=== PATIENT | male | born 1960 | race Caucasian/White ===

== ENCOUNTER 2016-06-06 07:44 | Emergency (ER) | payer OTHER ==
[2016-06-06 08:38] LABS: MEAN CORPUSCULAR HEMOGLOBIN 27.7 pg (27.0-33.0); MEAN CORPUSCULAR HGB CONC 31.9 g/dl (32.0-36.5); RED CELL DISTRIBUTION WIDTH 14.6 % (11.5-14.5); WHITE BLOOD COUNT 9.7 K/mm3 (4.0-10.0)
--- NOTE | 2016-06-06 08:40 | REP ---
CT BRAIN WITHOUT CONTRAST: 06/06/2016. Comparison: 04/21/2016. Clinical history: Possible trauma. Findings. Noncontrast soft tissue and bone windows are reviewed. Ventricles are midline and symmetrical and their size proportionate to the mild diffuse cerebral atrophy. This atrophy is greater than I would expect for his age. Appearance is unchanged from the previous study. Fairly prominent subarachnoid space over the frontal convexities. Atrophy is greatest in the temporal and frontal lobes. Basal ganglia were symmetric. Cortical stripe shows no evidence of an acute infarct, mass or extra-axial mass. No abnormal fluid collection. There is cerebellar atrophy. The brainstem is without focal lesion. The cerebellar atrophy is more severe than the cerebral atrophy. Yaron cisterna magna noted. There are calcifications in the carotid siphons bilaterally. Mastoids sinuses, skull base and calvarium grossly intact. Impression: 1. Cerebral and cerebellar atrophy greater than expected for age. Appearance unchanged from the previous study. 2. No intracranial hemorrhage, acute infarct, edema or mass/mass effect. 3. Sinuses, mastoids, skull base and calvarium grossly intact. Calcified carotid siphons noted. Signed by Geoff Vazquez MD 06/06/2016 04:56 P
[2016-06-06 09:36] LABS: ALBUMIN 3.7 GM/DL (3.2-5.2); ALBUMIN/GLOBULIN RATIO 0.97 (1.00-1.93); ALKALINE PHOSPHATASE 82 U/L (45-117); ALT/SGPT 30 U/L (12-78); ANION GAP 12 MEQ/L (8-16); AST/SGOT 39 U/L (15-37); BILIRUBIN,DIRECT 0.1 MG/DL (0.0-0.2); BILIRUBIN,TOTAL 0.4 MG/DL (0.2-1.0); BLOOD UREA NITROGEN 8 MG/DL (7-18); CALCIUM LEVEL 8.1 MG/DL (8.5-10.1); CARBON DIOXIDE LEVEL 23 MEQ/L (21-32); CHLORIDE LEVEL 111 MEQ/L (98-107); CREATININE FOR GFR 1.01 MG/DL (0.70-1.30); GLOMERULAR FILTRATION RATE > 60.0 (>56); GLUCOSE, FASTING 129 MG/DL (70-105); POTASSIUM SERUM 4.3 MEQ/L (3.5-5.1); SODIUM LEVEL 146 MEQ/L (136-145); TOTAL PROTEIN 7.5 GM/DL (6.4-8.2)
--- NOTE | 2016-06-06 11:11 | EDDOCDS ---
Nurse's Notes [facility] Name: Cliff Forman Age: 56 yrs Sex: Male : 1960 Arrival Date: 06/06/2016 Time: 07:44 Bed 12 Private MD: Diagnosis: Alcohol abuse, uncomplicated Presentation: 06/06 07:46 Presenting complaint: EMS states: found [place] this [place]. Reports had been kr3 drinking since 6PM last night. was found 1 block from his home. No complaints from patient. Mental Health Triage Level: Level 1- Pt displays no suicidal or homicidal ideations and does not appear to be a danger to self or others. Adult Sepsis Screening: The patient does not have new or worsening altered mentation. Patient's respiratory rate is less than 22. Systolic blood pressure is greater than 100. Patient has a qSOFA score of 0- Negative Sepsis Screen. Suicide/Homicide risk assessment- the patient denies having any suicidal and/or homicidal ideations and does not present with any other emotional, behavioral or mental health complaints. 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 Transition of care: patient was not received from another setting of care. 07:46 Acuity: TANA Level 4 kr3 07:46 Method Of Arrival: Ambulance kr3 07:59 Acuity level changed due to complexity of care. kr3 07:59 Acuity: TANA Level 3 kr3 Triage Assessment: 07:55 General: Appears comfortable, Behavior is cooperative, drowsy. Pain: Denies pain. The kr3 patient is triaged at the bedside. See Assessment in Nurses Notes section of ED record. Neurological: Level of Consciousness is awake, Oriented to person, place, reports does not pay attention to time. Respiratory: Respiratory effort is even, unlabored. Derm: Skin is normal, Skin temperature is cool. Injury Description: Abrasion sustained to anterior aspect of right lateral abdomen Bruise sustained to right and left knee right ankle swollen with medial ankle red and peeling skin. 11:03 HIV screening NA for this visit Offered previously. kr3 Historical: - Allergies: no known allergies; - Home Meds: 1. none - PMHx: none; - PSHx: none; - Social history: Patient uses alcohol on a daily basis. Smoking status: Patient uses tobacco products, current every day smoker. No barriers to communication noted, The patient speaks fluent Belarusian. - Family history: Not pertinent. - : The pt / caregiver states he / she is not on anticoagulants. Home medication list is obtained from. - Exposure Risk Screening:: None identified. - Tetanus status: unknown. Screenin:23 Screening information is obtained from the patient. Fall risk: No risks identified. kr3 Assistance ADL's: requires no assistance with activities of daily living. Abuse/DV Screen: The patient / caregiver reports he/she is: not in a situation that causes fear, pain or injury. Nutritional screening: No deficits noted. Advance Directives: Currently, there is no health care proxy. home support is adequate. Assessment: 08:23 Reassessment: Patient appears in no apparent distress at this time. General: Behavior kr3 is cooperative. Pain: Denies pain. Neurological: aroused with stimuli. 09:37 Reassessment: Patient appears in no apparent distress at this time. sleeping. kr3 Respiratory: Respiratory effort is even, unlabored. Derm: Skin is pink, warm & dry. 10:14 Reassessment: Patient appears in no apparent distress at this time. sitting up on kr3 stretcher having a meal. 10:28 Reassessment: patient removed IV and was dripping IV fluid into cereal bowl. Reports kr3 did not need it any more and is ready to go home. 11:01 Reassessment: ambulated in hallway with no problems. patient spoke with SAMARA Orta. . kr3 Neurological: No deficits noted. Respiratory: Respiratory effort is even, unlabored. Derm: Skin is pink, warm & dry. Social Work Consult: 11:07 Social Work Note: Met pt at bedside regarding ETOH abuse. Pt admits being an alcoholic ml4 for many years and is wanting rehab or outpt services. Pt denies SI and HI, able to CFS. Referrals for outpt service was given at bedside and directed to follow up with [facility] for intake. Vital Signs: 07:56 BP 155 / 80 RA Sitting (auto/reg); Pulse 109; Resp 18; Temp 96.5(O); Pulse Ox 98% on jrd R/A; Weight 81.65 kg (R); Height 5 ft. 8 in. (172.72 cm) (R); Pain 0/10; 11:02 BP 170 / 95; Pulse 120; Resp 16; Temp 97.6(O); Pulse Ox 97% on R/A; kr3 07:56 Body Mass Index 27.37 (81.65 kg, 172.72 cm) jrd Vitals: 07:54 Log In Time N/A - ambulance arrival. kr3 ED Course: 07:45 Patient visited by Nancy Turner Payment Processor. deg 07:45 Beba Rutherford RN is Primary Nurse. deg 07:45 Samara Murphy RN is Primary Nurse. deg 07:45 Patient moved to Waiting deg 07:45 Patient moved to 12 deg 07:46 Medina Salvador MD is Attending Physician. sd1 07:47 Triage Initiated kr3 07:50 Patient visited by Medina Salvador MD. sd1 07:57 Patient visited by Douglas Sebastian PCA. jrd 08:23 Inserted saline lock: 22 gauge in right hand and blood collected. The patient tolerated kr3 the procedure well. No procedures done that require assistance. 08:24 Primary Nurse role handed off by Beba Rutherford RN kr3 08:24 The patient / caregiver is instructed regarding the plan of care and ED course. Patient kr3 has correct armband on for positive identification. Placed in gown. Bed in low position. Call light in reach. Side rails up X2. Warm blanket given. 08:25 Liver Profile Sent. kr3 08:25 CBC Sent. kr3 08:25 MED Profile Sent. kr3 08:33 Patient visited by Samara Murphy RN. kr3 08:53 CT Head Without Contrast Returned. EDMS 09:36 Patient visited by Samara Murphy RN. kr3 10:14 Patient visited by Samara Murphy RN. kr3 10:40 EKG done. (by ED staff). Reviewed by Medina Salvador MD. jrd 10:40 Patient was ambulated per physician's order. Patient was able to walk without jrd assistance or any gait disturbance. 10:41 Patient visited by Douglas Sebastian PCA. jrd 10:48 Referral list, As provided by [facility] is Referral Physician. sd1 10:48 [facility] is Referral Physician. sd1 11:02 Discontinued intact, bleeding controlled, No redness/swelling at site. kr3 11:08 PSA Outpatient Referrals was scanned into [employer] and attached to record. ml4 Administered Medications: Discontinued: NS 0.9% 1000 ml IV at 250 mL/hr continuous 08:33 Drug: NS 0.9% 1000 ml [sodium chloride 0.9 % intravenous solution] Route: IV; Rate: 250 kr3 mL/hr; Site: right hand; Intake: 10:29 IV: 500.00ml (NS); Total: 500.00ml. kr3 Order Results: Lab Order: MED Profile; SPEC'M 06/06/16 08:58 Test: GLUCOSE, FASTING; Value: 129; Range: 70-105; Abnormal: Above high normal; Units: MG/DL; Status: F Test: BLOOD UREA NITROGEN; Value: 8; Range: 7-18; Units: MG/DL; Status: F Test: CREATININE FOR GFR; Value: 1.01; Range: 0.70-1.30; Units: MG/DL; Status: F Test: GLOMERULAR FILTRATION RATE; Value: > 60.0; Range: >56; Status: F Test: SODIUM LEVEL; Value: 146; Range: 136-145; Abnormal: Above high normal; Units: MEQ/L; Status: F Test: POTASSIUM SERUM; Value: 4.3; Range: 3.5-5.1; Units: MEQ/L; Status: F Test: CHLORIDE LEVEL; Value: 111; Range: 98-107; Abnormal: Above high normal; Units: MEQ/L; Status: F Test: CARBON DIOXIDE LEVEL; Value: 23; Range: 21-32; Units: MEQ/L; Status: F Test: ANION GAP; Value: 12; Range: 8-16; Units: MEQ/L; Status: F Test: CALCIUM LEVEL; Value: 8.1; Range: 8.5-10.1; Abnormal: Below low normal; Units: MG/DL; Status: F Test Note: ; Units are mL/min/1.73 m2 Chronic Kidney Disease Staging per NKF: Stage I & II GFR >=60 Normal to Mildly Decreased Stage III GFR 30-59 Moderately Decreased Stage IV GFR 15-29 Severely Decreased Stage V GFR <15 Very Little GFR Left ESRD GFR <15 on MACHINE SILK SCREEN PRINTER Lab Order: CBC; SPEC'M 06/06/16 08:15 Test: WHITE BLOOD COUNT; Value: 9.7; Range: 4.0-10.0; Units: K/mm3; Status: F Test: RED BLOOD COUNT; Value: 4.50; Range: 4.30-6.10; Units: M/mm3; Status: F Test: HEMOGLOBIN; Value: 12.5; Range: 14.0-18.0; Abnormal: Below low normal; Units: g/dl; Status: F Test: HEMATOCRIT; Value: 39.1; Range: 42.0-52.0; Abnormal: Below low normal; Units: %; Status: F Test: MEAN CORPUSCULAR VOLUME; Value: 87.0; Range: 80.0-96.0; Units: fl; Status: F Test: MEAN CORPUSCULAR HEMOGLOBIN; Value: 27.7; Range: 27.0-33.0; Units: pg; Status: F Test: MEAN CORPUSCULAR HGB CONC; Value: 31.9; Range: 32.0-36.5; Abnormal: Below low normal; Units: g/dl; Status: F Test: RED CELL DISTRIBUTION WIDTH; Value: 14.6; Range: 11.5-14.5; Abnormal: Above high normal; Units: %; Status: F Test: PLATELET COUNT, AUTOMATED; Value: 321; Range: 150-450; Units: k/mm3; Status: F Lab Order: Liver Profile; [facility] 06/06/16 08:58 Test: AST/SGOT; Value: 39; Range: 15-37; Abnormal: Above high normal; Units: U/L; Status: F Test: ALT/SGPT; Value: 30; Range: 12-78; Units: U/L; Status: F Test: ALKALINE PHOSPHATASE; Value: 82; Range: 45-117; Units: U/L; Status: F Test: BILIRUBIN,TOTAL; Value: 0.4; Range: 0.2-1.0; Units: MG/DL; Status: F Test: BILIRUBIN,DIRECT; Value: 0.1; Range: 0.0-0.2; Units: MG/DL; Status: F Test: TOTAL PROTEIN; Value: 7.5; Range: 6.4-8.2; Units: GM/DL; Status: F Test: ALBUMIN; Value: 3.7; Range: 3.2-5.2; Units: GM/DL; Status: F Test: ALBUMIN/GLOBULIN RATIO; Value: 0.97; Range: 1.00-1.93; Abnormal: Below low normal; Status: F Radiology Order: CT Head Without Contrast Test: CT Head Without Contrast REASON FOR EXAMINATION: possible trauma; CT BRAIN WITHOUT CONTRAST: 06/06/2016.; ; Comparison: 04/21/2016.; ; Clinical history: Possible trauma.; ; Findings. Noncontrast soft tissue and bone windows are reviewed. Ventricles are; midline and symmetrical and their size proportionate to the mild diffuse cerebral; atrophy. This atrophy is greater than I would expect for his age. Appearance is; unchanged from the previous study. Fairly prominent subarachnoid space over the; frontal convexities. Atrophy is greatest in the temporal and frontal lobes.; Basal ganglia were symmetric. Cortical stripe shows no evidence of an acute; infarct, mass or extra-axial mass. No abnormal fluid collection. There is; cerebellar atrophy. The brainstem is without focal lesion. The cerebellar; atrophy is more severe than the cerebral atrophy. Yaron cisterna magna noted.; There are calcifications in the carotid siphons bilaterally. Mastoids sinuses,; skull base and calvarium grossly intact.; ; Impression:; 1. Cerebral and cerebellar atrophy greater than expected for age. Appearance; unchanged from the previous study.; 2. No intracranial hemorrhage, acute infarct, edema or mass/mass effect.; 3. Sinuses, mastoids, skull base and calvarium grossly intact. Calcified; carotid siphons noted.; ; ; ; ; Unreviewed; Outcome: 08:24 CT Study completed. kr3 10:48 Discharge ordered by Provider. sd1 11:02 Discharge Assessment: patient administered narcotics - no. The following High Risk kr3 Discharge criteria are identified: Yes, spoke with [facility]. Discharged to home ambulatory, via cab. Condition: improved. Discharge instructions given to patient, Instructed on discharge instructions, follow up and referral plans. Demonstrated understanding of instructions, Pt was receptive of discharge instructions/ teaching. Property sent home with patient. 11:10 Patient left the ED. kr3 Signatures: Dispatcher [employer] EDMS Medina Salvador MD MD sd1 Nancy Turner, Payment Processor Unit deg Samara Murphy RN RN kr3 Marivel Ramirez, PSA PSA ml4 Douglas Sebastian, MEDICATION NURSE MEDICATION NURSE jrd RAJESHD
--- NOTE | 2016-06-06 11:11 | EDDOCDS ---
Physician Documentation [facility] Name: Cliff Forman Age: 56 yrs Sex: Male : 1960 Arrival Date: 06/06/2016 Time: 07:44 Bed 12 Private MD: Disposition: 06/06/16 10:48 Discharged to Home/Self Care. Impression: Alcohol abuse, uncomplicated. - Condition is Stable. - Discharge Instructions: Alcohol Use Disorder, Alcohol Abuse and Nutrition, How Much is Too Much Alcohol, [id number]. - Medication Reconciliation, Local Pharmacy Hours form. - Follow up: Referral list, As provided by [facility]; When: Call to arrange an appointment. [facility]; When: Call to arrange an appointment. - Problem is chronic. - Symptoms have improved. Historical: - Allergies: no known allergies; - Home Meds: 1. none - PMHx: none; - PSHx: none; - Social history: Patient uses alcohol on a daily basis. Smoking status: Patient uses tobacco products, current every day smoker. No barriers to communication noted, The patient speaks fluent Congolese. - Family history: Not pertinent. - : The pt / caregiver states he / she is not on anticoagulants. Home medication list is obtained from. - Exposure Risk Screening:: None identified. - Tetanus status: unknown. Vital Signs: 06/06 07:56 BP 155 / 80 RA Sitting (auto/reg); Pulse 109; Resp 18; Temp 96.5(O); Pulse Ox 98% on jrd R/A; Weight 81.65 kg / 180.01 lbs (R); Height 5 ft. 8 in. (172.72 cm) (R); Pain 0/10; 11:02 BP 170 / 95; Pulse 120; Resp 16; Temp 97.6(O); Pulse Ox 97% on R/A; kr3 07:56 Body Mass Index 27.37 (81.65 kg, 172.72 cm) jrd MDM: 07:54 NS 0.9% 1000 ml IV at 250 mL/hr continuous ordered. sd1 07:55 IV Saline Lock ordered. sd1 07:55 MED Profile Ordered. EDMS 07:55 CBC Ordered. EDMS 07:55 Liver Profile Ordered. EDMS 07:56 CT Head Without Contrast Ordered. EDMS 08:00 Consult: Clerk Specialist ordered. sd1 08:45 Consult: Clerk Specialist complete. ca 09:39 MED Profile Reviewed. sd1 09:39 CBC Reviewed. sd1 09:39 Liver Profile Reviewed. sd1 09:39 CT Head Without Contrast Reviewed. sd1 09:41 REGULAR+DIET ordered. EDMS 10:27 Misc. Nursing Order ordered. sd1 11:08 [facility] Outpatient Referrals was scanned into [employer] and attached to record. ml4 Administered Medications: Discontinued: NS 0.9% 1000 ml IV at 250 mL/hr continuous 08:33 Drug: NS 0.9% 1000 ml [sodium chloride 0.9 % intravenous solution] Route: IV; Rate: 250 kr3 mL/hr; Site: right hand; Signatures: Dispatcher [employer] EDVT Medina Salvador MD MD sd1 Kandis Musa, PSA PSA ca Samara Murphy,ROSA RN kr3 Marivel Ramirez, PSA PSA ml4 MTDD
--- NOTE | 2016-06-08 12:11 | EDDOCDS ---
Nurse's Notes [facility] Name: Cliff Forman Age: 56 yrs Sex: Male : 1960 Arrival Date: 06/06/2016 Time: 07:44 Bed 12 Private MD: Diagnosis: Alcohol abuse, uncomplicated Presentation: 06/06 07:46 Presenting complaint: EMS states: [place] this [place]. Reports had been kr3 drinking since 6PM last night. was found 1 block from his home. No complaints from patient. Mental Health Triage Level: Level 1- Pt displays no suicidal or homicidal ideations and does not appear to be a danger to self or others. Adult Sepsis Screening: The patient does not have new or worsening altered mentation. Patient's respiratory rate is less than 22. Systolic blood pressure is greater than 100. Patient has a qSOFA score of 0- Negative Sepsis Screen. Suicide/Homicide risk assessment- the patient denies having any suicidal and/or homicidal ideations and does not present with any other emotional, behavioral or mental health complaints. Status: Patient is not a representative personal service or dependent. Transition of care: patient was not received from another setting of care. 07:46 Acuity: TANA Level 4 kr3 07:46 Method Of Arrival: Ambulance kr3 07:59 Acuity level changed due to complexity of care. kr3 07:59 Acuity: TANA Level 3 kr3 Triage Assessment: 07:55 General: Appears comfortable, Behavior is cooperative, drowsy. Pain: Denies pain. The kr3 patient is triaged at the bedside. See Assessment in Nurses Notes section of ED record. Neurological: Level of Consciousness is awake, Oriented to person, place, reports does not pay attention to time. Respiratory: Respiratory effort is even, unlabored. Derm: Skin is normal, Skin temperature is cool. Injury Description: Abrasion sustained to anterior aspect of right lateral abdomen Bruise sustained to right and left knee right ankle swollen with medial ankle red and peeling skin. 11:03 HIV screening NA for this visit Offered previously. kr3 Historical: - Allergies: no known allergies; - Home Meds: 1. none - PMHx: none; - PSHx: none; - Social history: Patient uses alcohol on a daily basis. Smoking status: Patient uses tobacco products, current every day smoker. No barriers to communication noted, The patient speaks fluent Mongolian. - Family history: Not pertinent. - : The pt / caregiver states he / she is not on anticoagulants. Home medication list is obtained from. - Exposure Risk Screening:: None identified. - Tetanus status: unknown. Screenin:23 Screening information is obtained from the patient. Fall risk: No risks identified. kr3 Assistance ADL's: requires no assistance with activities of daily living. Abuse/DV Screen: The patient / caregiver reports he/she is: not in a situation that causes fear, pain or injury. Nutritional screening: No deficits noted. Advance Directives: Currently, there is no health care proxy. home support is adequate. Assessment: 08:23 Reassessment: Patient appears in no apparent distress at this time. General: Behavior kr3 is cooperative. Pain: Denies pain. Neurological: aroused with stimuli. 09:37 Reassessment: Patient appears in no apparent distress at this time. sleeping. kr3 Respiratory: Respiratory effort is even, unlabored. Derm: Skin is pink, warm & dry. 10:14 Reassessment: Patient appears in no apparent distress at this time. sitting up on kr3 stretcher having a meal. 10:28 Reassessment: patient removed IV and was dripping IV fluid into cereal bowl. Reports kr3 did not need it any more and is ready to go home. 11:01 Reassessment: ambulated in hallway with no problems. patient spoke with SAMARA Orta. . kr3 Neurological: No deficits noted. Respiratory: Respiratory effort is even, unlabored. Derm: Skin is pink, warm & dry. Social Work Consult: 11:07 Social Work Note: Met pt at bedside regarding ETOH abuse. Pt admits being an alcoholic ml4 for many years and is wanting rehab or outpt services. Pt denies SI and HI, able to CFS. Referrals for outpt service was given at bedside and directed to follow up with [facility] for intake. Vital Signs: 07:56 BP 155 / 80 RA Sitting (auto/reg); Pulse 109; Resp 18; Temp 96.5(O); Pulse Ox 98% on jrd R/A; Weight 81.65 kg (R); Height 5 ft. 8 in. (172.72 cm) (R); Pain 0/10; 11:02 BP 170 / 95; Pulse 120; Resp 16; Temp 97.6(O); Pulse Ox 97% on R/A; kr3 07:56 Body Mass Index 27.37 (81.65 kg, 172.72 cm) jrd Vitals: 07:54 Log In Time N/A - ambulance arrival. kr3 ED Course: 07:45 Patient visited by Nancy Turner Working Second Hand. deg 07:45 Beba Rutherford RN is Primary Nurse. deg 07:45 Samara Murphy RN is Primary Nurse. deg 07:45 Patient moved to Waiting deg 07:45 Patient moved to 12 deg 07:46 Medina Salvador MD is Attending Physician. sd1 07:47 Triage Initiated kr3 07:50 Patient visited by Medina Salvador MD. sd1 07:57 Patient visited by Douglas Sebastian PCA. jrd 08:23 Inserted saline lock: 22 gauge in right hand and blood collected. The patient tolerated kr3 the procedure well. No procedures done that require assistance. 08:24 Primary Nurse role handed off by Beba Rutherford RN kr3 08:24 The patient / caregiver is instructed regarding the plan of care and ED course. Patient kr3 has correct armband on for positive identification. Placed in gown. Bed in low position. Call light in reach. Side rails up X2. Warm blanket given. 08:25 Liver Profile Sent. kr3 08:25 CBC Sent. kr3 08:25 MED Profile Sent. kr3 08:33 Patient visited by Samara Murphy RN. kr3 08:53 CT Head Without Contrast Returned. EDMS 09:36 Patient visited by Samara Murphy RN. kr3 10:14 Patient visited by Samara Murphy RN. kr3 10:40 EKG done. (by ED staff). Reviewed by Medina Salvador MD. jrd 10:40 Patient was ambulated per physician's order. Patient was able to walk without jrd assistance or any gait disturbance. 10:41 Patient visited by Douglas Sebastian PCA. jrd 10:48 Referral list, As provided by [facility] is Referral Physician. sd1 10:48 [facility] is Referral Physician. sd1 11:02 Discontinued intact, bleeding controlled, No redness/swelling at site. kr3 11:08 PSA Outpatient Referrals was scanned into [employer] and attached to record. ml4 14:51 T-Sheet-- Draft Copy was scanned into [employer] and attached to record. gb 14:51 Radiology Report was scanned into [employer] and attached to record. gb 14:54 [facility] [place] Agreement was scanned into [employer] and attached to record. jp5 17:28 CT Head Without Contrast Returned. EDMS Administered Medications: Discontinued: NS 0.9% 1000 ml IV at 250 mL/hr continuous 08:33 Drug: NS 0.9% 1000 ml [sodium chloride 0.9 % intravenous solution] Route: IV; Rate: 250 kr3 mL/hr; Site: right hand; Intake: 10:29 IV: 500.00ml (NS); Total: 500.00ml. kr3 Order Results: Lab Order: MED Profile; [facility] 06/06/16 08:58 Test: GLUCOSE, FASTING; Value: 129; Range: 70-105; Abnormal: Above high normal; Units: MG/DL; Status: F Test: BLOOD UREA NITROGEN; Value: 8; Range: 7-18; Units: MG/DL; Status: F Test: CREATININE FOR GFR; Value: 1.01; Range: 0.70-1.30; Units: MG/DL; Status: F Test: GLOMERULAR FILTRATION RATE; Value: > 60.0; Range: >56; Status: F Test: SODIUM LEVEL; Value: 146; Range: 136-145; Abnormal: Above high normal; Units: MEQ/L; Status: F Test: POTASSIUM SERUM; Value: 4.3; Range: 3.5-5.1; Units: MEQ/L; Status: F Test: CHLORIDE LEVEL; Value: 111; Range: 98-107; Abnormal: Above high normal; Units: MEQ/L; Status: F Test: CARBON DIOXIDE LEVEL; Value: 23; Range: 21-32; Units: MEQ/L; Status: F Test: ANION GAP; Value: 12; Range: 8-16; Units: MEQ/L; Status: F Test: CALCIUM LEVEL; Value: 8.1; Range: 8.5-10.1; Abnormal: Below low normal; Units: MG/DL; Status: F Test Note: ; Units are mL/min/1.73 m2 Chronic Kidney Disease Staging per NKF: Stage I & II GFR >=60 Normal to Mildly Decreased Stage III GFR 30-59 Moderately Decreased Stage IV GFR 15-29 Severely Decreased Stage V GFR <15 Very Little GFR Left ESRD GFR <15 on SHOE PLANNER Lab Order: CBC; [facility]06/06/16 08:15 Test: WHITE BLOOD COUNT; Value: 9.7; Range: 4.0-10.0; Units: K/mm3; Status: F Test: RED BLOOD COUNT; Value: 4.50; Range: 4.30-6.10; Units: M/mm3; Status: F Test: HEMOGLOBIN; Value: 12.5; Range: 14.0-18.0; Abnormal: Below low normal; Units: g/dl; Status: F Test: HEMATOCRIT; Value: 39.1; Range: 42.0-52.0; Abnormal: Below low normal; Units: %; Status: F Test: MEAN CORPUSCULAR VOLUME; Value: 87.0; Range: 80.0-96.0; Units: fl; Status: F Test: MEAN CORPUSCULAR HEMOGLOBIN; Value: 27.7; Range: 27.0-33.0; Units: pg; Status: F Test: MEAN CORPUSCULAR HGB CONC; Value: 31.9; Range: 32.0-36.5; Abnormal: Below low normal; Units: g/dl; Status: F Test: RED CELL DISTRIBUTION WIDTH; Value: 14.6; Range: 11.5-14.5; Abnormal: Above high normal; Units: %; Status: F Test: PLATELET COUNT, AUTOMATED; Value: 321; Range: 150-450; Units: k/mm3; Status: F Lab Order: Liver Profile; [facility]06/06/16 08:58 Test: AST/SGOT; Value: 39; Range: 15-37; Abnormal: Above high normal; Units: U/L; Status: F Test: ALT/SGPT; Value: 30; Range: 12-78; Units: U/L; Status: F Test: ALKALINE PHOSPHATASE; Value: 82; Range: 45-117; Units: U/L; Status: F Test: BILIRUBIN,TOTAL; Value: 0.4; Range: 0.2-1.0; Units: MG/DL; Status: F Test: BILIRUBIN,DIRECT; Value: 0.1; Range: 0.0-0.2; Units: MG/DL; Status: F Test: TOTAL PROTEIN; Value: 7.5; Range: 6.4-8.2; Units: GM/DL; Status: F Test: ALBUMIN; Value: 3.7; Range: 3.2-5.2; Units: GM/DL; Status: F Test: ALBUMIN/GLOBULIN RATIO; Value: 0.97; Range: 1.00-1.93; Abnormal: Below low normal; Status: F Radiology Order: CT Head Without Contrast Test: CT Head Without Contrast REASON FOR EXAMINATION: possible trauma; CT BRAIN WITHOUT CONTRAST: 06/06/2016.; ; Comparison: 04/21/2016.; ; Clinical history: Possible trauma.; ; Findings. Noncontrast soft tissue and bone windows are reviewed. Ventricles are; midline and symmetrical and their size proportionate to the mild diffuse cerebral; atrophy. This atrophy is greater than I would expect for his age. Appearance is; unchanged from the previous study. Fairly prominent subarachnoid space over the; frontal convexities. Atrophy is greatest in the temporal and frontal lobes.; Basal ganglia were symmetric. Cortical stripe shows no evidence of an acute; infarct, mass or extra-axial mass. No abnormal fluid collection. There is; cerebellar atrophy. The brainstem is without focal lesion. The cerebellar; atrophy is more severe than the cerebral atrophy. Yaron cisterna magna noted.; There are calcifications in the carotid siphons bilaterally. Mastoids sinuses,; skull base and calvarium grossly intact.; ; Impression:; ; 1. Cerebral and cerebellar atrophy greater than expected for age. Appearance; unchanged from the previous study.; ; 2. No intracranial hemorrhage, acute infarct, edema or mass/mass effect.; ; 3. Sinuses, mastoids, skull base and calvarium grossly intact. Calcified; carotid siphons noted.; ; ; Signed by; Geoff Vazquez MD 06/06/2016 04:56 P; Outcome: 08:24 CT Study completed. kr3 10:48 Discharge ordered by Provider. sd1 11:02 Discharge Assessment: patient administered narcotics - no. The following High Risk kr3 Discharge criteria are identified: Yes, spoke with [facility]. Discharged to home ambulatory, via cab. Condition: improved. Discharge instructions given to patient, Instructed on discharge instructions, follow up and referral plans. Demonstrated understanding of instructions, Pt was receptive of discharge instructions/ teaching. Property sent home with patient. 11:10 Patient left the ED. kr3 Signatures: Dispatcher [employer] EDMedina Perkins MD MD sd1 Nancy Turner, Working Second Hand Unit deg Kim Myers, Reg Reg Samara Lennon,RN RN kr3 Marivel Ramirez, PSA PSA ml4 Douglas Sebastian, HYDRATOR OPERATOR HYDRATOR OPERATOR jrd Maribel Staton jp5 Chart Complete MTDD
--- NOTE | 2016-06-08 12:11 | EDDOCDS ---
Physician Documentation [facility] Name: Cliff Forman Age: 56 yrs Sex: Male : 1960 Arrival Date: 06/06/2016 Time: 07:44 Bed 12 Private MD: Disposition: 06/06/16 10:48 Discharged to Home/Self Care. Impression: Alcohol abuse, uncomplicated. - Condition is Stable. - Discharge Instructions: Alcohol Use Disorder, Alcohol Abuse and Nutrition, How Much is Too Much Alcohol, [id number]. - Medication Reconciliation, Local Pharmacy Hours form. - Follow up: Referral list, As provided by [facility]; When: Call to arrange an appointment. Follow [facility]: [facility]; When: Call to arrange an appointment. - Problem is chronic. - Symptoms have improved. Historical: - Allergies: no known allergies; - Home Meds: 1. none - PMHx: none; - PSHx: none; - Social history: Patient uses alcohol on a daily basis. Smoking status: Patient uses tobacco products, current every day smoker. No barriers to communication noted, The patient speaks fluent Sri Lankan. - Family history: Not pertinent. - : The pt / caregiver states he / she is not on anticoagulants. Home medication list is obtained from. - Exposure Risk Screening:: None identified. - Tetanus status: unknown. Vital Signs: 06/06 07:56 BP 155 / 80 RA Sitting (auto/reg); Pulse 109; Resp 18; Temp 96.5(O); Pulse Ox 98% on jrd R/A; Weight 81.65 kg / 180.01 lbs (R); Height 5 ft. 8 in. (172.72 cm) (R); Pain 0/10; 11:02 BP 170 / 95; Pulse 120; Resp 16; Temp 97.6(O); Pulse Ox 97% on R/A; kr3 07:56 Body Mass Index 27.37 (81.65 kg, 172.72 cm) jrd MDM: 07:54 NS 0.9% 1000 ml IV at 250 mL/hr continuous ordered. sd1 07:55 IV Saline Lock ordered. sd1 07:55 MED Profile Ordered. EDMS 07:55 CBC Ordered. EDMS 07:55 Liver Profile Ordered. EDMS 07:56 CT Head Without Contrast Ordered. EDMS 08:00 Consult: Brickmason Contractor ordered. sd1 08:45 Consult: Brickmason Contractor complete. ca 09:39 MED Profile Reviewed. sd1 09:39 CBC Reviewed. sd1 09:39 Liver Profile Reviewed. sd1 09:39 CT Head Without Contrast Reviewed. sd1 09:41 REGULAR+DIET ordered. EDMS 10:27 Misc. Nursing Order ordered. sd1 11:08 PSA Outpatient Referrals was scanned into [facility] and attached to record. ml4 14:51 T-Sheet-- Draft Copy was scanned into [employer] and attached to record. gb 14:51 Radiology Report was scanned into [employer] and attached to record. gb 14:54 [facility] Payment Agreement was scanned into [employer] and attached to record. jp5 14:54 Financial registration complete. jp5 Administered Medications: Discontinued: NS 0.9% 1000 ml IV at 250 mL/hr continuous 08:33 Drug: NS 0.9% 1000 ml [sodium chloride 0.9 % intravenous solution] Route: IV; Rate: 250 kr3 mL/hr; Site: right hand; Signatures: Dispatcher [employer] Medina Patrick MD MD sd1 Kandis Musa, PSA PSA ca Kim Myers, Reg Reg gb Samara Murphy,RN RN kr3 Marivel Ramirez, PSA PSA ml4 Maribel Staton jp5 The chart was reviewed and I authenticate all verbal orders and agree with the evaluation and treatment provided.Attachments: 14:51 T-Sheet-- Draft Copy gb 14:54 COUNT INCLUDES THE [facility] Payment Agreement jp5 Chart Complete MTDD
--- NOTE | 2016-06-08 12:11 | EDDOCDS ---
Physician Documentation [facility] Name: Cliff Forman Age: 56 yrs Sex: Male : 1960 Arrival Date: 06/06/2016 Time: 07:44 Bed 12 Private MD: Disposition: 06/06/16 10:48 Discharged to Home/Self Care. Impression: Alcohol abuse, uncomplicated. - Condition is Stable. - Discharge Instructions: Alcohol Use Disorder, Alcohol Abuse and Nutrition, How Much is Too Much Alcohol, [id number]. - Medication Reconciliation, Local Pharmacy Hours form. - Follow up: Referral list, As provided by [facility]; When: Call to arrange an appointment. Follow up: [facility]; When: Call to arrange an appointment. - Problem is chronic. - Symptoms have improved. Historical: - Allergies: no known allergies; - Home Meds: 1. none - PMHx: none; - PSHx: none; - Social history: Patient uses alcohol on a daily basis. Smoking status: Patient uses tobacco products, current every day smoker. No barriers to communication noted, The patient speaks fluent Greenlandic. - Family history: Not pertinent. - : The pt / caregiver states he / she is not on anticoagulants. Home medication list is obtained from. - Exposure Risk Screening:: None identified. - Tetanus status: unknown. Vital Signs: 06/06 07:56 BP 155 / 80 RA Sitting (auto/reg); Pulse 109; Resp 18; Temp 96.5(O); Pulse Ox 98% on jrd R/A; Weight 81.65 kg / 180.01 lbs (R); Height 5 ft. 8 in. (172.72 cm) (R); Pain 0/10; 11:02 BP 170 / 95; Pulse 120; Resp 16; Temp 97.6(O); Pulse Ox 97% on R/A; kr3 07:56 Body Mass Index 27.37 (81.65 kg, 172.72 cm) jrd MDM: 07:54 NS 0.9% 1000 ml IV at 250 mL/hr continuous ordered. sd1 07:55 IV Saline Lock ordered. sd1 07:55 MED Profile Ordered. EDMS 07:55 CBC Ordered. EDMS 07:55 Liver Profile Ordered. EDMS 07:56 CT Head Without Contrast Ordered. EDMS 08:00 Consult: Diamond Expert ordered. sd1 08:45 Consult: Diamond Expert complete. ca 09:39 MED Profile Reviewed. sd1 09:39 CBC Reviewed. sd1 09:39 Liver Profile Reviewed. sd1 09:39 CT Head Without Contrast Reviewed. sd1 09:41 REGULAR+DIET ordered. EDMS 10:27 Misc. Nursing Order ordered. sd1 11:08 PSA Outpatient Referrals was scanned into [employer] and attached to record. ml4 14:51 T-Sheet-- Draft Copy was scanned into [employer] and attached to record. gb 14:51 Radiology Report was scanned into [employer] and attached to record. gb 14:54 [facility] Payment Agreement was scanned into [employer] and attached to record. jp5 14:54 Financial registration complete. jp5 Administered Medications: Discontinued: NS 0.9% 1000 ml IV at 250 mL/hr continuous 08:33 Drug: NS 0.9% 1000 ml [sodium chloride 0.9 % intravenous solution] Route: IV; Rate: 250 kr3 mL/hr; Site: right hand; Signatures: Dispatcher [employer] Medina Patrick MD MD sd1 Kandis Musa, PSA PSA ca Kim Myers, Reg Reg gb Samara Murphy,RN RN kr3 Marivel Ramirez, PSA PSA ml4 Maribel Staton jp5 The chart was reviewed and I authenticate all verbal orders and agree with the evaluation and treatment provided.Attachments: 14:51 T-Sheet-- Draft Copy gb 14:54 [facility] Payment Agreement jp5 Chart Complete MTDD
== END 2016-06-06 11:10 | disposition home or self-care (01) ==
LOC: M ED 07:44
DX: F10.120 Alcohol abuse with intoxication, uncomplicated (principal)

== ENCOUNTER 2017-07-13 23:41 | Emergency (ER) | payer OTHER, SELFPAY | END 2017-07-14 02:39 | disposition home or self-care (01) | LOC: M ED 23:41 | DX: S80.211A Abrasion, right knee, initial encounter (principal); S80.212A Abrasion, left knee, initial encounter; W18.39XA Other fall on same level, initial encounter; Y92.410 Unspecified street and highway as the place of occurrence of the external cause; F10.220 Alcohol dependence with intoxication, uncomplicated; Y90.1 Blood alcohol level of 20-39 mg/100 ml; F17.210 Nicotine dependence, cigarettes, uncomplicated | CPT/HCPCS: 80320 ==

== ENCOUNTER 2017-11-18 04:34 | Emergency (ER) | payer OTHER ==
[2017-11-18] MEDS ORDERED: LIDOCAINE 1% MDV 20ML VIAL As Ordered ×2 (06:38)
[2017-11-18] MEDS: LIDOCAINE 1% MDV 20ML VIAL SC ×2 (06:45)
== END 2017-11-18 07:32 | disposition home or self-care (01) ==
LOC: M ED 04:34
DX: S81.812A Laceration without foreign body, left lower leg, initial encounter (principal); X58.XXXA Exposure to other specified factors, initial encounter; Y92.9 Unspecified place or not applicable; Y93.9 Activity, unspecified; Y99.9 Unspecified external cause status; F10.129 Alcohol abuse with intoxication, unspecified
CPT/HCPCS: 73590

== ENCOUNTER 2017-11-29 10:23 | Emergency (ER) | payer OTHER | END 2017-11-29 10:57 | disposition home or self-care (01) | LOC: M ED 10:23 | DX: Z48.02 Encounter for removal of sutures (principal); I10 Essential (primary) hypertension; J45.909 Unspecified asthma, uncomplicated; F10.10 Alcohol abuse, uncomplicated | CPT/HCPCS: 99283 ==

== ENCOUNTER 2018-06-04 23:54 | Emergency (ER) | payer OTHER ==
[2018-06-05] MEDS ORDERED: MULTIVITAMIN -ADULT INJECTION 10 ML, THIAMINE INJection 100 MG, FOLIC ACID 1 MG in NS 1... IV ONE (01:45)
[2018-06-05 02:23] LABS: BLOOD UREA NITROGEN 6 MG/DL (7-18); CALCIUM LEVEL 7.9 MG/DL (8.5-10.1); CARBON DIOXIDE LEVEL 20 MEQ/L (21-32); CHLORIDE LEVEL 98 MEQ/L (98-107); CREATININE FOR GFR 0.88 MG/DL (0.70-1.30); ETHYL ALCOHOL (ETHANOL) 0.283 % (0.000-0.010); GLOMERULAR FILTRATION RATE > 60.0 (>56); GLUCOSE, FASTING 123 MG/DL (70-100); POTASSIUM SERUM 3.5 MEQ/L (3.5-5.1); SODIUM LEVEL 131 MEQ/L (136-145)
[2018-06-05 04:07] VITALS: BP 174/84
== END 2018-06-05 04:16 | disposition home or self-care (01) ==
LOC: M ED 23:54 → EDBD 23:54 → M ED 06-05 04:16
DX: F10.129 Alcohol abuse with intoxication, unspecified (principal); Y90.1 Blood alcohol level of 20-39 mg/100 ml; J44.9 Chronic obstructive pulmonary disease, unspecified; J45.909 Unspecified asthma, uncomplicated; I10 Essential (primary) hypertension; F17.210 Nicotine dependence, cigarettes, uncomplicated
CPT/HCPCS: 80048; 96374; 99284; G0480; J3411

== ENCOUNTER 2018-09-30 19:28 | Emergency (ER) | payer OTHER ==
[~2018-09-30] VITALS: Ht 175.3 cm; Wt 79.5 kg
[2018-09-30 19:37] VITALS: BP 145/90
--- NOTE | 2018-09-30 20:34 | REP ---
Clinical: Head injury. Comparison: 06/06/2016 Findings: Age-related atrophy and microvascular ischemic changes are appreciated. The ventricles and sulci are symmetric. Melendez-white differentiation is maintained. There is no evidence for acute intracranial hemorrhage, mass/mass effect, pathology or infarction. No extra-axial fluid collection. Calvarium is intact. Partial opacification of the ethmoid sinuses. Impression: Atrophy and microvascular ischemic changes. No acute intracranial hemorrhage, infarction, or mass/mass effect. Electronically Signed by Gabriel Weber MD 09/30/2018 08:25 P
--- NOTE | 2018-09-30 20:35 | REP ---
Clinical: Cough . Comparison: None. Findings: The mediastinum and cardiac silhouette are stable and within normal limits for portable technique. The lung goode are clear without acute consolidation, effusion, or pneumothorax. Skeletal structures are intact. Impression: No acute cardiopulmonary process appreciated. Electronically Signed by Gabriel Weber MD 09/30/2018 08:26 P
--- NOTE | 2018-09-30 22:00 | ECGEPIP ---
[facility] - ED Test Date: 2018-09-30 Pat Name: RUDI JACKSON Department: Room: - Gender: Male [employer] Tech: : 1960 Requested By: ZENAIDA Villafana Order Number: [id number] Reading MD: Joe Donnelly Measurements Intervals Bonnie Rate: 78 P: 43 ID: [id number] QRS: QRSD: 104 T: 31 QT: 370 QTc: 423 Interpretive Statements SINUS RHYTHM Inferior Q waves of uncertain significance Similar to tracing done 04-21-16 Electronically Signed on 09-30-2018 21:59:12 EDT by Joe Donnelly
== END 2018-09-30 21:12 | disposition left against medical advice (07) ==
LOC: M ED 19:28 → EDBD 19:28 → M ED 21:12
DX: S00.93XA Contusion of unspecified part of head, initial encounter (principal); F10.129 Alcohol abuse with intoxication, unspecified; W19.XXXA Unspecified fall, initial encounter; Y92.480 Sidewalk as the place of occurrence of the external cause; Y93.9 Activity, unspecified; Y99.9 Unspecified external cause status; Z53.21 Procedure and treatment not carried out due to patient leaving prior to being seen by health care provider

== ENCOUNTER 2018-11-03 21:19 | Emergency (ER) | payer OTHER ==
[~2018-11-03] VITALS: Ht 175.3 cm; Wt 84.1 kg
[2018-11-04 00:47] VITALS: BP 141/83
== END 2018-11-04 00:48 | disposition home or self-care (01) ==
LOC: M ED 21:19
DX: F10.129 Alcohol abuse with intoxication, unspecified (principal); I10 Essential (primary) hypertension; K74.60 Unspecified cirrhosis of liver; I25.2 Old myocardial infarction

== ENCOUNTER → 2018-12-22 | Outpatient (REF) | payer OTHER ==
[2018-12-22 19:07] LABS: BASO # 0.1 10^3/uL (0.0-0.2); BASO % 0.8 % (0.0-1.0); EOS # 0.3 10^3/uL (0.0-0.50); EOS % 4.8 % (0.0-3.0); HEMATOCRIT 27.8 % (42.0-52.0); HEMOGLOBIN 7.3 g/dl (13.5-17.5); LYMPH # 1.3 10^3/uL (1.5-4.5); LYMPH % 20.4 % (24.0-44.0); MEAN CORPUSCULAR HEMOGLOBIN 18.8 pg (27.0-33.0); MEAN CORPUSCULAR HGB CONC 26.3 g/dl (32.0-36.5); MEAN CORPUSCULAR VOLUME 71.5 fl (80.0-96.0); MONO # 0.6 10^3/uL (0.0-0.8); MONO % 8.9 % (0.0-5.0); NEUTROPHILS # 4.1 10^3/uL (1.8-7.7); NEUTROPHILS % 64.9 % (36.0-66.0); PLATELET COUNT, AUTOMATED 451 10^3/uL (150-450); RED BLOOD COUNT 3.89 10^6/uL (4.30-6.10); WHITE BLOOD COUNT 6.3 10^3/uL (4.0-10.0)
[2018-12-22 19:17] LABS: ALBUMIN 3.8 GM/DL (3.2-5.2); ALT/SGPT 17 U/L (12-78); BILIRUBIN,TOTAL 0.5 MG/DL (0.2-1.0); BLOOD UREA NITROGEN 12 MG/DL (7-18); CALCIUM LEVEL 8.6 MG/DL (8.5-10.1); CARBON DIOXIDE LEVEL 20 MEQ/L (21-32); CHLORIDE LEVEL 109 MEQ/L (98-107); CHOLESTEROL LEVEL 142 MG/DL (<200); CHOLESTEROL RISK RATIO 3.227 (<5); CREATININE FOR GFR 1.16 MG/DL (0.70-1.30); FREE T4 0.82 NG/DL (0.76-1.46); GLOMERULAR FILTRATION RATE > 60.0 (>56); GLUCOSE, FASTING 128 MG/DL (70-100); HDL CHOLESTEROL 44 MG/DL (>40); LDL CHOLESTEROL 83 MG/DL (<100); NON-HDL-C 98 MG/DL; POTASSIUM SERUM 4.7 MEQ/L (3.5-5.1); SODIUM LEVEL 138 MEQ/L (136-145); TOTAL PROTEIN 7.5 GM/DL (6.4-8.2); TRIGLYCERIDES LEVEL 76 MG/DL (<150)
[2018-12-22 19:20] LABS: TOTAL 25(OH) VITAMIN D 30.4 NG/ML (30.0-100.0)
[2018-12-22 20:16] LABS: HEMOGLOBIN A1c 5.1 %
== END ==
LOC: M LAB REF 18:24
PROVIDERS: ATTEND Family Medicine
DX: Z13.228 Encounter for screening for other metabolic disorders (principal)

== ENCOUNTER → 2019-01-01 | Outpatient (REF) | payer OTHER, MEDICAID ==
[~2019-01-01] MED LIST: ASCO50TA PO; CLON-412; FERR325T18 PO; FOLI1TAB11 PO; GOOD1POW4 PO; LISI10TA4 PO; OMEP-218 PO; THIA100TA PO; VITMTA PO
[2019-01-01 17:12] LABS: PERCENT SATURATION 2.8 % (19.7-50.0)
== END ==
LOC: M LAB REF 16:33
PROVIDERS: ATTEND Family Medicine
DX: D64.9 Anemia, unspecified (principal)

== ENCOUNTER 2019-01-06 12:38 | Inpatient (IN) | payer MEDICAID, OTHER ==
[~2019-01-06] VITALS: Ht 177.8 cm; Wt 90.1 kg
[2019-01-06] MEDS ORDERED: CLON-412 (12:46)
[2019-01-06] MEDS ORDERED: LISI10TA4 PO (12:46)
[2019-01-06 13:39] LABS: BASO % 0.4 % (0.0-1.0); EOS # 0.4 10^3/uL (0.0-0.5); EOS % 5.8 % (0.0-3.0); HEMATOCRIT 23.7 % (42.0-52.0); LYMPH # 0.9 10^3/uL (1.5-5.0); LYMPH % 11.8 % (24.0-44.0); MEAN CORPUSCULAR HEMOGLOBIN 18.5 pg (27.0-33.0); MEAN CORPUSCULAR HGB CONC 27.4 g/dl (32.0-36.5); MEAN CORPUSCULAR VOLUME 67.5 fl (80.0-96.0); MONO # 0.7 10^3/uL (0.0-0.8); MONO % 8.5 % (0.0-5.0); NEUTROPHILS # 5.6 10^3/uL (1.5-8.5); NEUTROPHILS % 72.8 % (36.0-66.0); PLATELET COUNT, AUTOMATED 379 10^3/uL (150-450); RED BLOOD COUNT 3.51 10^6/uL (4.30-6.10); WHITE BLOOD COUNT 7.6 10^3/uL (4.0-10.0)
[2019-01-06 13:45] LABS: HEMOGLOBIN 6.5 g/dl (13.5-17.5)
[2019-01-06 13:54] LABS: INR 1.06; PROTHROMBIN TIME 13.5 SECONDS (11.8-14.0)
[2019-01-06 13:55] LABS: PARTIAL THROMBOPLASTIN TIME 26.9 SECONDS (25.0-38.4)
[2019-01-06 14:11] LABS: ALT/SGPT 18 U/L (12-78); BILIRUBIN,TOTAL 0.5 MG/DL (0.2-1.0); BLOOD UREA NITROGEN 10 MG/DL (7-18); CARBON DIOXIDE LEVEL 23 MEQ/L (21-32); CHLORIDE LEVEL 107 MEQ/L (98-107); CREATININE FOR GFR 0.93 MG/DL (0.70-1.30); GLOMERULAR FILTRATION RATE > 60.0 (>56); GLUCOSE, FASTING 138 MG/DL (70-100); POTASSIUM SERUM 4.1 MEQ/L (3.5-5.1); SODIUM LEVEL 139 MEQ/L (136-145); TOTAL PROTEIN 7.7 GM/DL (6.4-8.2)
[2019-01-06] MEDS ORDERED: GOOD1POW4 PO (14:30)
[2019-01-06 15:13] LABS: FERRITIN 5 NG/ML (26-388); IRON (FE) 25 UG/DL (65-175); LDH LACTATE DEHYDROGENASE 264 U/L (87-241); PERCENT SATURATION 4.7 % (19.7-50.0); TOTAL IRON BINDING CAPACITY 534 UG/DL (250-450)
--- NOTE | 2019-01-06 15:18 | HPEPDOC ---
[facility] Medical History & Physical Date of Admission Jan 06, 2019 Date of Service: Jan 06, 2019 History and Physical CHIEF COMPLAINT: symptomatic anemia HISTORY OF PRESENT ILLNESS: 58 yo male for several week history of shortness of breath, dyspnea on exertion, dizziness. Denies chest pain, black stool, BRBPR. Denies excessive NSAID use. States he has had routine colonoscopies before (2). Last one in [place] a few years ago, normal as per patient. History of alcoholism, last drink yesterday - but states he only drinks 1-2 per day now. Admits to chewing tobacco 6-8 times per day. PAST MEDICAL HISTORY: 1. HTN 2. alcohol abuse ALLERGIES: Please see below. REVIEW OF SYSTEMS: Negative except as per HPI. HOME MEDICATIONS: Please see below. PHYSICAL EXAMINATION: General: NAD, sitting comfortably on stretcher HEENT: NC/AT, EOMI, PERRLA, poor dentition Lungs: CTA B/L Heart: +S1S2, systolic murmur Abd: soft, NT, +BS Ext: trace edema LABORATORY DATA: See below. MICROBIOLOGY: Please see below. ASSESSMENT: 58 yo male for symptomatic anemia #anemia - labs pending - iron deficiency noted - colonoscopy/EGD planned for tomorrow - surgical consultation pending #murmur - patietn unaware of murmur - echo pendign #alcohol abuse - MVI, thiamine, folic acid - CIWA #nicotine abuse - nicotine replacement therapy #DVT prophylaxis - mechanical . PLAN: 1. . Vital Signs Vital Signs Date Time Temp Pulse Resp B/P (MAP) Pulse Ox O2 Delivery O2 Flow Rate FiO2 01/06/19 12:48 01/06/19 12:39 98.8 85 17 100 Room Air Laboratory Data Labs 24H Laboratory Tests 2 01/06/19 13:24: Immature Granulocyte % (Auto) 0.7, White Blood Count 7.6, Red Blood Count 3.51L, Hemoglobin 6.5*L, Hematocrit 23.7L, Mean Corpuscular Volume 67.5L, Mean Corpuscular Hemoglobin 18.5L, Mean Corpuscular Hemoglobin Concent 27.4L, Red Cell Distribution Width 18.6H, Platelet Count 379, Neutrophils (%) (Auto) 72.8H, Lymphocytes (%) (Auto) 11.8L, Monocytes (%) (Auto) 8.5H, Eosinophils (%) (Auto) 5.8H, Basophils (%) (Auto) 0.4, Neutrophils # (Auto) 5.6, Lymphocytes # (Auto) 0.9L, Monocytes # (Auto) 0.7, Eosinophils # (Auto) 0.4, Basophils # (Auto) 0.0, Reticulocyte # (auto) 45.2, Nucleated Red Blood Cells % (auto) 0.0, Percent Ret iculocyte Count 1.3, Reticulocyte Hemoglobin Equivalent 16.5L, Prothrombin Time 13.5, Prothromb Time International Ratio 1.06, Activated Partial Thromboplast Time 26.9, Anion Gap 9, Glomerular Filtration Rate > 60.0, Blood Urea Nitrogen 10, Creatinine 0.93, Sodium Level 139, Potassium Level 4.1, Chloride Level 107, Carbon Dioxide Level 23, Calcium Level 9.0, Aspartate Amino Transf (AST/SGOT) 20, Alanine Aminotransferase (ALT/SGPT) 18, Lactate Dehydrogenase 264H, Alkaline Phosphatase 75, Total Bilirubin 0.5, Total Protein 7.7, Albumin 4.0, Iron Level 25L, Total Iron Binding Capacity 534H, Transferrin % Saturation 4.7L, Ferritin 5L, Albumin/Globulin Ratio 1.08 CBC/BMP Laboratory Tests 01/06/19 13:24 Red Blood Count 3.51 L, Mean Corpuscular Volume 67.5 L, Mean Corpuscular Hemoglobin 18.5 L, Mean Corpuscular Hemoglobin Concent 27.4 L, Red Cell Distribution Width 18.6 H, Neutrophils (%) (Auto) 72.8 H, Lymphocytes (%) (Auto) 11.8 L, Monocytes (%) (Auto) 8.5 H, Eosinophils (%) (Auto) 5.8 H, Basophils (%) (Auto) 0.4, Neutrophils # (Auto) 5.6, Lymphocytes # (Auto) 0.9 L, Monocytes # (Auto) 0.7, Eosinophils # (Auto) 0.4, Basophils # (Auto) 0.0, Calcium Level 9.0, Aspartate Amino Transf (AST/SGOT) 20, Alanine Aminotransferase (ALT/SGPT) 18, Lactate Dehydrogenase 264 H, Alkaline Phosphatase 75, Total Bilirubin 0.5, Total Protein 7.7, Albumin 4.0 Home Medications Scheduled Lisinopril (Lisinopril) 10 Mg Tablet, 10 MG PO DAILY Scheduled PRN Aspirin/Acetaminophen/Caffeine (Good[employer]'s Ex-Str Powder Packet) 1 Each Powd.pack, 1 PKT PO DAILY PRN for HEADACHE Allergies Coded Allergies: No Known Allergies (Unverified , 07/13/17) A-FIB/CHADSVASC A-FIB History Current/History of A-Fib/PAF?: No Current PO Anticoag Therapy: No HERNÁN ALEX MD Jan 06, 2019 15:18
[2019-01-06 15:26] LABS: VITAMIN B12 LEVEL 231 PG/ML
[2019-01-06 15:27] LABS: FOLATE 12.2 NG/ML
[2019-01-06] MEDS ORDERED: NICOTINE 21MG/24HR 1 EA TRANSDERMAL TD ONE (16:00)
[2019-01-06 16:30] VITALS: BP 165/91
[2019-01-06] MEDS: FOLIC ACID 1 MG TAB PO SCH (16:48)
[2019-01-06] MEDS: MULTIVITAMINS/MINERALS THERAP 1 TAB PO SCH (16:48)
[2019-01-06] MEDS: LISINOPRIL 10 MG TAB PO SCH (16:49)
[2019-01-06] MEDS: NS 1,000 ML IV SCH (16:51)
[2019-01-06] MEDS: THIAMINE 100 MG TAB PO SCH (16:51)
[2019-01-06] MEDS ORDERED: MOM 30ML SUSPENSION UDC PO ONE (17:00)
[2019-01-06] MEDS ORDERED: MAGNESIUM CITRATE 300 ML BTL PO ONE ×2 (17:00→22:00)
--- NOTE | 2019-01-06 20:26 | ECGEPIP ---
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
[2019-01-06] MEDS: FERROUS SULFATE 325MG TAB PO SCH (20:43)
[2019-01-06] MEDS: ASCORBIC ACID 500 MG TAB PO SCH (20:44)
[2019-01-06 22:00] VITALS: BP 158/82
[2019-01-07] VITALS (9 sets, daily range): BP systolic 131–174; BP diastolic 38–92
[2019-01-07] MEDS: NS 1,000 ML IV SCH ×2 (00:18→04:53)
[2019-01-07 06:25] LABS: HEMATOCRIT 27.4 % (42.0-52.0); MEAN CORPUSCULAR HEMOGLOBIN 20.8 pg (27.0-33.0); MEAN CORPUSCULAR HGB CONC 29.2 g/dl (32.0-36.5); MEAN CORPUSCULAR VOLUME 71.2 fl (80.0-96.0); PLATELET COUNT, AUTOMATED 292 10^3/uL (150-450); RED BLOOD COUNT 3.85 10^6/uL (4.30-6.10); WHITE BLOOD COUNT 8.2 10^3/uL (4.0-10.0)
[2019-01-07 06:51] LABS: BLOOD UREA NITROGEN 9 MG/DL (7-18); CALCIUM LEVEL 8.4 MG/DL (8.5-10.1); CARBON DIOXIDE LEVEL 26 MEQ/L (21-32); CHLORIDE LEVEL 111 MEQ/L (98-107); CREATININE FOR GFR 0.92 MG/DL (0.70-1.30); GLOMERULAR FILTRATION RATE > 60.0 (>56); GLUCOSE, FASTING 93 MG/DL (70-100); POTASSIUM SERUM 3.8 MEQ/L (3.5-5.1); SODIUM LEVEL 143 MEQ/L (136-145)
[2019-01-07] MEDS ORDERED: LIDOCAINE 2% INJ 100 MG/5 ML SDV (FOR ANES.) As Ordered ONE (07:37)
[2019-01-07] MEDS ORDERED: PROPOFOL 200 MG/20 ML VIAL As Ordered ONE (07:37)
--- NOTE | 2019-01-07 07:49 | ROOR ---
Patient Name: Cliff Forman Procedure Date: 01/07/2019 7:32 AM Date of : 1960 Age: 58 Room: [facility] Gender: Male Note Status: Finalized Procedure: Upper GI endoscopy Indications: Iron deficiency anemia Providers: Dayo Church Jr, MD Referring MD: 2. Inpatient 2. Inpatient Requesting Provider: Medicines: Propofol per Anesthesia Complications: No immediate complications. Procedure: Pre-Anesthesia Assessment: - Prior to the procedure, a History and Physical was performed, and patient medications and allergies were reviewed. The patient is competent. The risks and benefits of the procedure and the sedation options and risks were discussed with the patient. All questions were answered and informed consent was obtained. Patient identification and proposed procedure were verified by the physician and the nurse in the pre-procedure area and in the procedure room. Mental Status Examination: alert and oriented. Airway Examination: normal oropharyngeal airway and neck mobility. Respiratory Examination: clear to auscultation. CV Examination: normal. ASA Grade Assessment: III - A patient with severe systemic disease. After reviewing the risks and benefits, the patient was deemed in satisfactory condition to undergo the procedure. The anesthesia plan was to use moderate sedation / analgesia (conscious sedation). Immediately prior to administration of medications, the patient was re-assessed for adequacy to receive sedatives. The heart rate, respiratory rate, oxygen saturations, blood pressure, adequacy of pulmonary ventilation, and response to care were monitored throughout the procedure. The physical status of the patient was re-assessed after the procedure. The Endoscope was introduced through the mouth, and advanced to the second part of duodenum. The upper GI endoscopy was accomplished without difficulty. The patient tolerated the procedure well. Findings: The upper third of the esophagus, middle third of the esophagus and lower third of the esophagus were normal. The cardia, gastric fundus and gastric body were normal. Patchy moderate inflammation characterized by congestion (edema), erythema and friability was found in the gastric antrum and in the prepyloric region of the stomach. Patchy moderate inflammation characterized by congestion (edema), erythema and friability was found in the first portion of the duodenum. The second portion of the duodenum was normal. Impression: - Normal upper third of esophagus, middle third of esophagus and lower third of esophagus. - Normal cardia, gastric fundus and gastric body. - Gastritis. - Duodenitis. - Normal second portion of the duodenum. - No specimens collected. Recommendation: - Return patient to [facility] for ongoing care. Dayo Church MD Dayo Church Jr, MD 01/07/2019 7:48:42 AM Electronically signed by Dayo Church Jr, MD Number of Addenda: 0 Note Initiated On: 01/07/2019 7:32 AM Estimated Blood Loss: Estimated blood loss: none.
--- NOTE | 2019-01-07 08:01 | ROOR ---
Patient Name: Cliff Forman Procedure Date: 01/07/2019 7:32 AM Date of : 1960 Age: 58 Room: [facility] Gender: Male Note Status: Finalized Procedure: Colonoscopy Indications: Iron deficiency anemia Providers: Dayo Church Jr, MD Referring MD: 2. Inpatient 2. Inpatient Requesting Provider: Medicines: Propofol per Anesthesia Complications: No immediate complications. Procedure: Pre-Anesthesia Assessment: - Prior to the procedure, a History and Physical was performed, and patient medications and allergies were reviewed. The patient is competent. The risks and benefits of the procedure and the sedation options and risks were discussed with the patient. All questions were answered and informed consent was obtained. Patient identification and proposed procedure were verified by the physician and the nurse in the pre-procedure area and in the procedure room. Mental Status Examination: alert and oriented. Airway Examination: normal oropharyngeal airway and neck mobility. Respiratory Examination: clear to auscultation. CV Examination: normal. ASA Grade Assessment: II - A patient with mild systemic disease. After reviewing the risks and benefits, the patient was deemed in satisfactory condition to undergo the procedure. The anesthesia plan was to use moderate sedation / analgesia (conscious sedation). Immediately prior to administration of medications, the patient was re-assessed for adequacy to receive sedatives. The heart rate, respiratory rate, oxygen saturations, blood pressure, adequacy of pulmonary ventilation, and response to care were monitored throughout the procedure. The physical status of the patient was re-assessed after the procedure. The Colonoscope was introduced through the anus and advanced to the cecum, identified by appendiceal orifice and ileocecal valve. The colonoscopy was performed without difficulty. The patient tolerated the procedure well. The quality of the bowel preparation was fair. Findings: The rectum, recto-sigmoid colon, sigmoid colon, descending colon, transverse colon, ascending colon, cecum, appendiceal orifice and ileocecal valve appeared normal. Impression: - Preparation of the colon was fair. - The rectum, recto-sigmoid colon, sigmoid colon, descending colon, transverse colon, ascending colon, cecum, appendiceal orifice and ileocecal valve are normal. - No specimens collected. Recommendation: - Admit the patient to [facility] for ongoing care. - Repeat colonoscopy in 10 years for screening purposes. Dayo Church MD Dayo Church Jr, MD 01/07/2019 8:00:52 AM Electronically signed by Dayo Church Jr, MD Number of Addenda: 0 Note Initiated On: 01/07/2019 7:32 AM Estimated Blood Loss: Estimated blood loss: none.
[2019-01-07] MEDS: ASCORBIC ACID 500 MG TAB PO SCH ×2 (09:33→20:17)
[2019-01-07] MEDS: OMEPRAZOLE 20 MG CAP PO SCH ×2 (09:33→20:17)
[2019-01-07] MEDS: THIAMINE 100 MG TAB PO SCH (09:33)
[2019-01-07] MEDS: MULTIVITAMINS/MINERALS THERAP 1 TAB PO SCH (09:33)
[2019-01-07] MEDS: FOLIC ACID 1 MG TAB PO SCH (09:33)
[2019-01-07] MEDS: FERROUS SULFATE 325MG TAB PO SCH ×2 (09:33→20:17)
[2019-01-07] MEDS: LISINOPRIL 10 MG TAB PO SCH (09:34)
--- NOTE | 2019-01-07 11:40 | IPNPDOC ---
Text Note Date of Service The patient was seen on 01/07/19. NOTE Subjective: Patient seen and examined at bedside. No acute overnight events, underwent bi- directional endoscopy today. No new medical complaints. Objective: General: NAD, sitting comfortably on stretcher HEENT: NC/AT, EOMI, PERRLA, poor dentition Lungs: CTA B/L Heart: +S1S2, systolic murmur Abd: soft, NT, +BS Ext: trace edema ASSESSMENT: 58 yo male with PMHx alcohol abuse and HTN for symptomatic anemia #anemia - labs pending - iron deficiency noted - oral iron supplementation - colonoscopy/EGD completed - shows gastritis and duodenitis #murmur - patient unaware of murmur - echo pending #alcohol abuse - MVI, thiamine, folic acid - CIWA #nicotine abuse - nicotine replacement therapy #DVT prophylaxis - mechanical . VS,Fishbone, I+O VS, Fishbone, I+O Laboratory Tests 01/06/19 13:24 Red Blood Count 3.51 L, Mean Corpuscular Volume 67.5 L, Mean Corpuscular Hemoglobin 18.5 L, Mean Corpuscular Hemoglobin Concent 27.4 L, Red Cell Distribution Width 18.6 H, Neutrophils (%) (Auto) 72.8 H, Lymphocytes (%) (Auto) 11.8 L, Monocytes (%) (Auto) 8.5 H, Eosinophils (%) (Auto) 5.8 H, Basophils (%) (Auto) 0.4, Neutrophils # (Auto) 5.6, Lymphocytes # (Auto) 0.9 L, Monocytes # (Auto) 0.7, Eosinophils # (Auto) 0.4, Basophils # (Auto) 0.0, Calcium Level 9.0, Aspartate Amino Transf (AST/SGOT) 20, Alanine Aminotransferase (ALT/SGPT) 18, Lactate Dehydrogenase 264 H, Alkaline Phosphatase 75, Total Bilirubin 0.5, Total Protein 7.7, Albumin 4.0 01/07/19 05:07 Red Blood Count 3.85 L, Mean Corpuscular Volume 71.2 L, Mean Corpuscular Hemoglobin 20.8 L, Mean Corpuscular Hemoglobin Concent 29.2 L, Red Cell Distri bution Width 19.8 H, Calcium Level 8.4 L Vital Signs Date Time Temp Pulse Resp B/P (MAP) Pulse Ox O2 Delivery O2 Flow Rate FiO2 01/07/19 10:25 98.5 57 20 174/92 (119) 100 01/06/19 16:39 Room Air I&O- Last 24 Hours up to 6 AM 01/07/19 06:00 Intake Total 1634 ml Balance 1634 ml HERNÁN ALEX MD Jan 07, 2019 11:40
--- NOTE | 2019-01-07 11:59 | ECHO ---
DATE OF PROCEDURE: 01/06/2019 Date of : 1960 Age: 58 REFERRING PHYSICIAN: Kobi Boss MD PATIENT LOCATION: Room 4202 REASON FOR ECHOCARDIOGRAM: Heart murmur. 2D MEASUREMENTS: IVS: 1.2 cm LV: 5.3 cm LVPW: 1.0 cm LA: 4.2 cm Aorta: 3.7 cm IVC: 1.6 cm DOPPLER MEASUREMENTS: Peak velocity across the aortic valve: 2.1 m/s Peak velocity across the LVOT: 1.1 m/s Mitral E: 1.1, Mitral A: 0.98 with a ratio of 1.1 Maximum tricuspid valve velocity: 2.4 m/s 2D COMMENTS: 1. Normal left ventricular size, wall thickness and normal global left ventricular systolic function. The estimated left ventricular systolic ejection fraction is 65 to 70%. 2. Mildly enlarged left atrium. Normal right atrium and right ventricle. 3. The atrial septum appeared to be normal without evidence of defect or shunt. 4. Normal aortic root. 5. A small pericardial effusion was noted, no evidence of cardiac tamponade. 6. Mildly calcified aortic valve with mildly restricted leaflet motion. Mildly calcified mitral annulus with normal anterior mitral valve leaflet motion. Normal tricuspid valve and pulmonic valve. The proximal pulmonary artery branches also appear to be normal. 7. The inferior vena cava was normal in size, central venous pressure is most likely normal. DOPPLER: It detects trace mitral regurgitation, mild tricuspid regurgitation. The calculated pulmonary artery systolic pressure varies between 30-40 mmHg. Abnormal relaxation pattern was noted across the mitral valve leaflets as well as the mitral valve annulus consistent with features of grade 1 left ventricular diastolic dysfunction. IMPRESSION 1. Normal global left ventricular systolic function. There are features of left ventricular diastolic dysfunction manifested by abnormal relaxation. 2. Aortic valve sclerosis with mild aortic stenosis, but no aortic regurgitation. 3. Mitral annulus calcification with mildly enlarged left atrium and trace mitral regurgitation. The dilated left atrium is most likely related to underlying left ventricular diastolic dysfunction because there is no significant mitral regurgitation. 4. Mild tricuspid regurgitation with mild pulmonary hypertension. 5. A small pericardial effusion was noted, no evidence of cardiac tamponade. [facility]
[2019-01-08 06:38] LABS: HEMATOCRIT 28.1 % (42.0-52.0); HEMOGLOBIN 8.1 g/dl (13.5-17.5); MEAN CORPUSCULAR HEMOGLOBIN 20.5 pg (27.0-33.0); MEAN CORPUSCULAR HGB CONC 28.8 g/dl (32.0-36.5); MEAN CORPUSCULAR VOLUME 71.1 fl (80.0-96.0); PLATELET COUNT, AUTOMATED 258 10^3/uL (150-450); RED BLOOD COUNT 3.95 10^6/uL (4.30-6.10); WHITE BLOOD COUNT 6.2 10^3/uL (4.0-10.0)
[2019-01-08 06:57] LABS: BLOOD UREA NITROGEN 7 MG/DL (7-18); CALCIUM LEVEL 8.8 MG/DL (8.5-10.1); CARBON DIOXIDE LEVEL 26 MEQ/L (21-32); CHLORIDE LEVEL 110 MEQ/L (98-107); CREATININE FOR GFR 0.96 MG/DL (0.70-1.30); GLOMERULAR FILTRATION RATE > 60.0 (>56); GLUCOSE, FASTING 90 MG/DL (70-100); POTASSIUM SERUM 4.1 MEQ/L (3.5-5.1); SODIUM LEVEL 141 MEQ/L (136-145)
[2019-01-08 07:00] VITALS: BP 144/88
[2019-01-08 07:51] LABS: C REACTIVE PROTEIN QUANTITATIV 0.44 MG/DL (0.00-0.30)
[2019-01-08] MEDS: MULTIVITAMINS/MINERALS THERAP 1 TAB PO SCH (08:00)
[2019-01-08] MEDS: ASCORBIC ACID 500 MG TAB PO SCH ×2 (08:00→20:20)
[2019-01-08] MEDS: FERROUS SULFATE 325MG TAB PO SCH ×2 (08:00→20:20)
[2019-01-08] MEDS: FOLIC ACID 1 MG TAB PO SCH (08:00)
[2019-01-08] MEDS: LISINOPRIL 10 MG TAB PO SCH (08:00)
[2019-01-08] MEDS: OMEPRAZOLE 20 MG CAP PO SCH ×2 (08:00→20:20)
[2019-01-08] MEDS: THIAMINE 100 MG TAB PO SCH (08:00)
[2019-01-08 09:21] LABS: ERYTHROCYTE SEDIMENTATION RATE 29 mm/hr (0-20)
--- NOTE | 2019-01-08 11:08 | IPNPDOC ---
Text Note Date of Service The patient was seen on 01/08/19. NOTE Subjective: Patient seen and examined at bedside. No acute overnight events reported. Objective: General: NAD, sitting comfortably at edge of bed HEENT: NC/AT, EOMI, PERRLA, poor dentition Lungs: CTA B/L Heart: +S1S2, systolic murmur Abd: soft, NT, +BS Ext: trace edema ASSESSMENT: 58 yo male with PMHx alcohol abuse and HTN for symptomatic anemia #anemia - follow H/H - low but stable - continue iron supplementation - consider w/u for malabsorption - colonoscopy/EGD completed - shows gastritis and duodenitis - continue PPI BID #murmur - echo noted #alcohol abuse - MVI, thiamine, folic acid #nicotine abuse - nicotine replacement therapy #DVT prophylaxis - mechanical Dispo: follow H/H, anticipated d/c in 24 hours VS,Fishbone, I+O VS, Fishbone, I+O Laboratory Tests 01/08/19 05:24 Red Blood Count 3.95 L, Mean Corpuscular Volume 71.1 L, Mean Corpuscular Hemoglobin 20.5 L, Mean Corpuscular Hemoglobin Concent 28.8 L, Red Cell Distribution Width 20.3 H, Calcium Level 8.8 Vital Signs Date Time Temp Pulse Resp B/P (MAP) Pulse Ox O2 Delivery O2 Flow Rate FiO2 01/08/19 08:00 165/80 01/08/19 07:00 97.8 72 20 98 01/06/19 16:39 Room Air I&O- Last 24 Hours up to 6 AM 01/08/19 06:00 Intake Total 1481 ml Output Total 0 ml Balance 1481 ml HERNÁN ALEX MD Jan 08, 2019 11:08
[2019-01-08 14:30] VITALS: BP 132/72
[2019-01-08 19:15] LABS: HEMATOCRIT 29.2 % (42.0-52.0); HEMOGLOBIN 8.4 g/dl (13.5-17.5)
[2019-01-08 22:00] VITALS: BP 133/73
[2019-01-09 05:48] LABS: HEMATOCRIT 27.9 % (42.0-52.0); MEAN CORPUSCULAR HEMOGLOBIN 20.2 pg (27.0-33.0); MEAN CORPUSCULAR HGB CONC 28.7 g/dl (32.0-36.5); MEAN CORPUSCULAR VOLUME 70.5 fl (80.0-96.0); PLATELET COUNT, AUTOMATED 260 10^3/uL (150-450); RED BLOOD COUNT 3.96 10^6/uL (4.30-6.10)
[2019-01-09 06:00] VITALS: BP 132/79
[2019-01-09 06:16] LABS: FERRITIN 14 NG/ML (26-388); IRON (FE) 88 UG/DL (65-175)
[2019-01-09 08:28] VITALS: BP 119/73
[2019-01-09 09:17] LABS: CK-MB VALUE MASS 1.3 NG/ML (<3.6); CPK CREATINE PHOSPHOKINASE 85 U/L (39-308); MB/CK RELATIVE INDEX 1.53 (< OR =4); TROPONIN I < 0.02 NG/ML (< 0.10)
[2019-01-09] MEDS: THIAMINE 100 MG TAB PO SCH (09:24)
[2019-01-09] MEDS: OMEPRAZOLE 20 MG CAP PO SCH (09:24)
[2019-01-09] MEDS: FERROUS SULFATE 325MG TAB PO SCH (09:24)
[2019-01-09 09:25] VITALS: BP 119/73
[2019-01-09] MEDS: FOLIC ACID 1 MG TAB PO SCH (09:25)
[2019-01-09] MEDS: LISINOPRIL 10 MG TAB PO SCH (09:25)
[2019-01-09] MEDS: MULTIVITAMINS/MINERALS THERAP 1 TAB PO SCH (09:25)
[2019-01-09] MEDS: ASCORBIC ACID 500 MG TAB PO SCH (09:25)
[2019-01-09] MEDS ORDERED: OMEP-218 PO (09:41)
[2019-01-09] MEDS ORDERED: FOLI1TAB11 PO (09:41)
[2019-01-09] MEDS ORDERED: ASCO50TA PO (09:41)
[2019-01-09] MEDS ORDERED: THIA100TA PO (09:41)
[2019-01-09] MEDS ORDERED: FERR325T18 PO (09:41)
[2019-01-09] MEDS ORDERED: VITMTA PO (09:41)
--- NOTE | 2019-01-09 13:11 | DS.PDOC ---
Discharge Summary General Date of Admission Jan 06, 2019 at 14:27 Date of Discharge 01/09/19 Specialist/Consultants Involve: Ranjit Alfonso,Dayo Cramer Discharge Summary PROCEDURES PERFORMED DURING STAY: EGD, colonoscopy DISCHARGE DIAGNOSES: 1. gastritis/duodenitis 2. symptomatic anemia s/p 2 units PRBC 3. iron deficiency anemia 4. aortic stenosis 5. alcohol abuse/nicotine abuse 6. HTN COMPLICATIONS/CHIEF COMPLAINT: Anemia. HPI/Hospital Course: 59 yo male presents for several week history of SOB, NASCIMENTO and dizziness. Found to be anemic. Admitted for further evaluation and treatment. Seen in consultation by GI, underwent EGD and colonoscopy. No stigmata of bleeding, but positive for gastritis and duodenitis. Labs showed iron deficiency. Hospital stay unremarkable, denied any symptoms of anemia. PHYSICAL EXAM ON DISCHARGE: General: NAD, sitting comfortably at edge of bed HEENT: NC/AT, EOMI, PERRLA, poor dentition Lungs: CTA B/L Heart: +S1S2, systolic murmur Abd: soft, NT, +BS Ext: trace edema LABORATORY DATA: Please see below. ACTIVITY: [As tolerated]. DIET: 2 gram sodium DISPOSITION: 01 Home, Self-Care. DISCHARGE INSTRUCTIONS: 1. Please follow up with PCP in 3-5 days - office will to arrange appointment. 2. Recommend follow up CBC in 3-5 days. DISCHARGE CONDITION: [Stable]. TIME SPENT ON DISCHARGE: 40 minutes. Vital Signs/I&Os Vital Signs Date Time Temp Pulse Resp B/P (MAP) Pulse Ox O2 Delivery O2 Flow Rate FiO2 01/09/19 09:25 119/73 01/09/19 08:28 76 01/09/19 06:00 98.0 16 99 01/06/19 16:39 Room Air I&O- Last 24 Hours up to 6 AM 01/09/19 06:00 Intake Total 1240 ml Balance 1240 ml Laboratory Data Labs 24H Laboratory Tests 2 01/08/19 17:44: 01/09/19 05:17: Nucleated Red Blood Cells % (auto) 0.0, Iron Level 88, Ferritin 14L 01/09/19 08:11: Total Creatine Kinase 85, Creatine Kinase MB 1.3, Creatine Kinase MB Relative Index 1.53, Troponin I < 0.02 CBC/BMP Laboratory Tests 01/08/19 17:44 01/09/19 05:17 Red Blood Count 3.96 L, Mean Corpuscular Volume 70.5 L, Mean Corpuscular Hemoglobin 20.2 L, Mean Corpuscular Hemoglobin Concent 28.7 L, Red Cell Distri bution Width 20.5 H Discharge Medications Scheduled Ascorbic Acid (Vitamin C) 500 Mg Tablet, 500 MG PO BID Ferrous Sulfate (Ferrous Sulfate) 325 Mg Tablet, 325 MG PO BID Folic Acid (Folic Acid) 1 Mg Tablet, 1 MG PO DAILY Lisinopril (Lisinopril) 10 Mg Tablet, 10 MG PO DAILY, (Reported) Multivitamins (Thera M Plus Tablet) 1 Each Tablet, 1 TAB PO DAILY Omeprazole (Omeprazole) 20 Mg Capsule.dr, 40 MG PO BID Thiamine Hcl (Vitamin B-1) 100 Mg Tablet, 100 MG PO DAILY Allergies Coded Allergies: No Known Allergies (Unverified , 07/13/17) HERNÁN ALEX MD Jan 09, 2019 13:11
== END 2019-01-09 10:56 | disposition home or self-care (01) | DRG 663 ==
LOC: M ED 12:38 → M ED INP 14:27 → M MSPAV 16:30
PROVIDERS: ADMIT Internal Medicine; ATTEND Internal Medicine
PROC: 30233N1 Transfusion of Nonautologous Red Blood Cells into Peripheral Vein, Percutaneous Approach (ICD-10-PCS; principal; 2019-01-06)
PROC: 0DJ08ZZ Inspection of Upper Intestinal Tract, Via Natural or Artificial Opening Endoscopic (ICD-10-PCS; 2019-01-07)
PROC: 0DJD8ZZ Inspection of Lower Intestinal Tract, Via Natural or Artificial Opening Endoscopic (ICD-10-PCS; 2019-01-07)
DX: D50.9 Iron deficiency anemia, unspecified (principal); I10 Essential (primary) hypertension; F10.10 Alcohol abuse, uncomplicated; F17.200 Nicotine dependence, unspecified, uncomplicated; I35.0 Nonrheumatic aortic (valve) stenosis; Z79.899 Other long term (current) drug therapy; K29.70 Gastritis, unspecified, without bleeding; K29.80 Duodenitis without bleeding; R01.1 Cardiac murmur, unspecified

== ENCOUNTER → 2019-03-17 | Outpatient (CLI) | payer OTHER ==
--- NOTE | 2019-03-18 02:26 | REP ---
Clinical: Foreign body. Technique: Two supine views of the abdomen and pelvis. Findings: No foreign body identified on current examination. Bowel gas pattern is nonspecific. No organomegaly. Skeletal structures are intact. Partially calcified seminal vesicles noted within the pelvis. Impression: No foreign body identified. Electronically Signed by Gabriel Weber MD 03/18/2019 02:17 A
== END ==
LOC: M RAD 13:19
PROVIDERS: ATTEND Internal Medicine Gastroenterology
DX: T18.3XXA Foreign body in small intestine, initial encounter (principal); T18.4XXA Foreign body in colon, initial encounter; X58.XXXA Exposure to other specified factors, initial encounter; Y92.89 Other specified places as the place of occurrence of the external cause

== ENCOUNTER → 2019-03-25 | Outpatient (REF) | payer OTHER, MEDICAID ==
[2019-03-25 13:09] LABS: BASO # 0.1 10^3/uL (0.0-0.2); BASO % 1.3 % (0.0-1.0); EOS # 0.3 10^3/uL (0.0-0.5); EOS % 5.9 % (0.0-3.0); HEMATOCRIT 40.9 % (42.0-52.0); HEMOGLOBIN 12.2 g/dl (13.5-17.5); LYMPH # 1.3 10^3/uL (1.5-5.0); LYMPH % 26.9 % (24.0-44.0); MEAN CORPUSCULAR HGB CONC 29.8 g/dl (32.0-36.5); MEAN CORPUSCULAR VOLUME 83.8 fl (80.0-96.0); MONO # 0.5 10^3/uL (0.0-0.8); MONO % 10.1 % (0.0-5.0); NEUTROPHILS # 2.6 10^3/uL (1.5-8.5); NEUTROPHILS % 55.6 % (36.0-66.0); PLATELET COUNT, AUTOMATED 303 10^3/uL (150-450); RED BLOOD COUNT 4.88 10^6/uL (4.30-6.10); WHITE BLOOD COUNT 4.8 10^3/uL (4.0-10.0)
[2019-03-25 13:21] LABS: PERCENT SATURATION 7.8 % (19.7-50.0)
== END ==
LOC: M LAB REF 12:15
PROVIDERS: ATTEND Family Medicine
DX: D64.9 Anemia, unspecified (principal)

== ENCOUNTER → 2019-09-14 | Outpatient (REF) | payer OTHER, MEDICAID ==
[~2019-09-14] MED LIST changes: +LISI10TA22 PO; -LISI10TA4 PO
[2019-09-14 14:13] LABS: BASO # 0.1 10^3/uL (0.0-0.2); EOS # 0.4 10^3/uL (0.0-0.5); EOS % 5.8 % (0.0-3.0); HEMATOCRIT 39.9 % (42.0-52.0); HEMOGLOBIN 13.2 g/dl (13.5-17.5); LYMPH # 1.6 10^3/uL (1.5-5.0); LYMPH % 27.2 % (24.0-44.0); MEAN CORPUSCULAR HEMOGLOBIN 27.8 pg (27.0-33.0); MEAN CORPUSCULAR HGB CONC 33.1 g/dl (32.0-36.5); MEAN CORPUSCULAR VOLUME 84.2 fl (80.0-96.0); MONO # 0.5 10^3/uL (0.0-0.8); MONO % 7.5 % (0.0-5.0); NEUTROPHILS # 3.5 10^3/uL (1.5-8.5); NEUTROPHILS % 58.2 % (36.0-66.0); PLATELET COUNT, AUTOMATED 342 10^3/uL (150-450); RED BLOOD COUNT 4.74 10^6/uL (4.30-6.10)
[2019-09-14 14:51] LABS: ALBUMIN 4.1 GM/DL (3.2-5.2); ALT/SGPT 49 U/L (12-78); BILIRUBIN,TOTAL 0.7 MG/DL (0.2-1.0); BLOOD UREA NITROGEN 13 MG/DL (7-18); CALCIUM LEVEL 9.2 MG/DL (8.8-10.2); CARBON DIOXIDE LEVEL 21 MEQ/L (21-32); CHLORIDE LEVEL 101 MEQ/L (98-107); CHOLESTEROL LEVEL 210 MG/DL (<200); CHOLESTEROL RISK RATIO 7.241 (<5); CREATININE FOR GFR 1.05 MG/DL (0.70-1.30); FERRITIN 22 NG/ML (26-388); GLOMERULAR FILTRATION RATE > 60.0 (>49); GLUCOSE, FASTING 299 MG/DL (70-100); HDL CHOLESTEROL 29 MG/DL (>40); IRON (FE) 66 UG/DL (65-175); LDL CHOLESTEROL 123 MG/DL (<100); NON-HDL-C 181 MG/DL; PERCENT SATURATION 15.6 % (19.7-50.0); POTASSIUM SERUM 4.2 MEQ/L (3.5-5.1); SODIUM LEVEL 134 MEQ/L (136-145); TOTAL IRON BINDING CAPACITY 422 UG/DL (250-450); TOTAL PROTEIN 7.9 GM/DL (6.4-8.2); TRIGLYCERIDES LEVEL 291 MG/DL (<150)
[2019-09-14 14:52] LABS: TOTAL 25(OH) VITAMIN D 15.3 NG/ML (30.0-100.0); VITAMIN B12 LEVEL 253 PG/ML
[2019-09-14 14:53] LABS: FOLATE 11.6 NG/ML
[2019-09-14 15:10] LABS: HEMOGLOBIN A1c 8.8 %
== END ==
LOC: M LAB REF 12:34
PROVIDERS: ATTEND Nurse Practitioner Family
DX: I10 Essential (primary) hypertension (principal); Z13.9 Encounter for screening, unspecified; D64.9 Anemia, unspecified

== ENCOUNTER → 2019-11-24 | Outpatient (CLI) | payer OTHER, MEDICAID ==
[~2019-11-24] MED LIST changes: -LISI10TA22 PO; +LISI10TA4 PO
[2019-11-24 10:04] LABS: HEMATOCRIT 40.1 % (42.0-52.0); HEMOGLOBIN 12.4 g/dl (13.5-17.5); MEAN CORPUSCULAR HEMOGLOBIN 26.6 pg (27.0-33.0); MEAN CORPUSCULAR HGB CONC 30.9 g/dl (32.0-36.5); MEAN CORPUSCULAR VOLUME 86.1 fl (80.0-96.0); PLATELET COUNT, AUTOMATED 285 10^3/uL (150-450); RED BLOOD COUNT 4.66 10^6/uL (4.30-6.10)
[2019-11-24 10:35] LABS: ALBUMIN 3.6 GM/DL (3.2-5.2); ALT/SGPT 28 U/L (12-78); BILIRUBIN,DIRECT 0.2 MG/DL (0.0-0.2); BILIRUBIN,TOTAL 0.9 MG/DL (0.2-1.0); BLOOD UREA NITROGEN 9 MG/DL (7-18); CALCIUM LEVEL 8.9 MG/DL (8.8-10.2); CARBON DIOXIDE LEVEL 26 MEQ/L (21-32); CHLORIDE LEVEL 106 MEQ/L (98-107); CREATININE FOR GFR 1.09 MG/DL (0.70-1.30); GLOMERULAR FILTRATION RATE > 60.0 (>49); GLUCOSE, FASTING 118 MG/DL (70-100); PHOSPHORUS LEVEL 2.2 MG/DL (2.5-4.9); POTASSIUM SERUM 4.1 MEQ/L (3.5-5.1); SODIUM LEVEL 138 MEQ/L (136-145); TOTAL PROTEIN 7.4 GM/DL (6.4-8.2)
== END ==
LOC: M LAB 09:26
PROVIDERS: ATTEND Podiatrist Foot & Ankle Surgery
DX: B35.1 Tinea unguium (principal); Z79.899 Other long term (current) drug therapy

== ENCOUNTER 2020-08-02 14:40 | Inpatient (IN) | payer OTHER, MEDICAID ==
[~2020-08-02] VITALS: Ht 177.8 cm; Wt 87.9 kg
[~2020-08-02 14:40] MED LIST changes: +LISI10TA22 PO; -LISI10TA4 PO
[2020-08-02 15:45] LABS: BASO # 0.1 10^3/uL (0.0-0.2); BASO % 1.3 % (0.0-1.0); EOS # 0.1 10^3/uL (0.0-0.5); HEMATOCRIT 28.4 % (42.0-52.0); LYMPH # 1.2 10^3/uL (1.5-5.0); LYMPH % 19.2 % (24.0-44.0); MEAN CORPUSCULAR HEMOGLOBIN 21.9 pg (27.0-33.0); MEAN CORPUSCULAR HGB CONC 28.2 g/dl (32.0-36.5); MEAN CORPUSCULAR VOLUME 77.6 fl (80.0-96.0); MONO # 0.8 10^3/uL (0.0-0.8); MONO % 13.4 % (2.0-8.0); NEUTROPHILS # 3.8 10^3/uL (1.5-8.5); NEUTROPHILS % 63.8 % (36.0-66.0); PLATELET COUNT, AUTOMATED 426 10^3/uL (150-450); RED BLOOD COUNT 3.66 10^6/uL (4.30-6.10)
[2020-08-02 16:07] LABS: AMPHETAMINES LEVEL URINE NEGATIVE (NEGATIVE); BARBITURATES URINE NEGATIVE (NEGATIVE); BENZODIAZEPINES URINE NEGATIVE (NEGATIVE); CANNABINOIDS URINE NEGATIVE (NEGATIVE); COCAINE METABOLITE URINE NEGATIVE (NEGATIVE); METHADONE URINE NEGATIVE (NEGATIVE); OPIATES URINE NEGATIVE (NEGATIVE); PHENCYCLIDINE URINE NEGATIVE (NEGATIVE)
[2020-08-02 16:19] LABS: ACETAMINOPHEN LEVEL < 2.0 UG/ML (10.0-30.0); ALBUMIN 3.5 GM/DL (3.2-5.2); ALT/SGPT 98 U/L (12-78); BILIRUBIN,DIRECT 0.2 MG/DL (0.0-0.2); BILIRUBIN,TOTAL 0.3 MG/DL (0.2-1.0); BLOOD UREA NITROGEN 9 MG/DL (7-18); CALCIUM LEVEL 8.7 MG/DL (8.8-10.2); CARBON DIOXIDE LEVEL 23 MEQ/L (21-32); CHLORIDE LEVEL 107 MEQ/L (98-107); CK-MB VALUE MASS 2.4 NG/ML (<3.6); CPK CREATINE PHOSPHOKINASE 552 U/L (39-308); CREATININE FOR GFR 1.04 MG/DL (0.70-1.30); ETHYL ALCOHOL (ETHANOL) 0.389 % (0.000-0.010); GLOMERULAR FILTRATION RATE > 60.0 (>49); GLUCOSE, FASTING 111 MG/DL (70-100); MB/CK RELATIVE INDEX 0.43 (< OR =4); POTASSIUM SERUM 4.3 MEQ/L (3.5-5.1); SALICYLATE LEVEL 1.9 MG/DL (5.0-30.0); SODIUM LEVEL 138 MEQ/L (136-145); TOTAL PROTEIN 7.5 GM/DL (6.4-8.2); TROPONIN I < 0.02 NG/ML (< 0.10)
--- NOTE | 2020-08-02 16:22 | REP ---
INDICATION: altered ms. COMPARISON: 09/30/2018. TECHNIQUE: Portable AP chest with the patient sitting. FINDINGS: The lung goode are clear. Cardiac size is normal. The cherrie, mediastinum and skeletal structures are unremarkable. IMPRESSION: Essentially negative portable chest. There is no interval change. <Electronically signed by Chi Garcia > 08/02/20 [id number]
--- NOTE | 2020-08-02 16:26 | REP ---
INDICATION: altered ms. COMPARISON: 09/30/2018. TECHNIQUE: CT BRAIN PERFORMED IN THE AXIAL PLANE. CORONAL RECONSTRUCTION IMAGES ARE PERFORMED. FINDINGS: LATERAL VENTRICLES ARE MIDLINE SYMMETRIC DILATED IN PROPORTION TO THE MODERATELY SEVERE CEREBRAL ATROPHY. THIS IS PROGRESSED IN FOR THE PAST 2 YEARS AND IS GREATER THAN WOULD BE EXPECTED FOR THE PATIENT'S AGE. THIRD AND 4TH VENTRICLES ARE MILDLY PROMINENT MEDS WELL AND PROPORTIONATE. BASAL GANGLIA SYMMETRIC AND UNCHANGED HETEROGENEOUS LOW-ATTENUATION WHITE MATTER CHANGES BILATERALLY SUGGESTING CHRONIC SMALL VESSEL ISCHEMIC DISEASE, STABLE. NO INTRACRANIAL HEMORRHAGE, MASS, MASS EFFECT OR EDEMA. BRAINSTEM INTACT. THERE IS SIGNIFICANT CEREBELLAR ATROPHY WITHOUT MASS OR FOCAL LESION. THERE IS NO ACUTE INFARCT. THERE IS A LALA CISTERNA MAGNA AN ANATOMIC VARIATION.. MUCOSAL THICKENING POSTERIORLY IN THE RIGHT MAXILLARY ANTRUM WITH MUCH IMPROVEMENT IN THE ETHMOID SINUSES. FRONTAL SINUSES AND SPHENOIDS AND THAT PORTION OF LEFT MAXILLARY SINUS CLEAR. THE MASTOIDS ARE CLEAR. SKULL BASE CALVARIUM WITHOUT FRACTURE OR FOCAL LESION. ORBITS AND CONTENTS GROSSLY INTACT. THERE IS DEVIATION OF THE NASAL SEPTUM TOWARDS THE RIGHT. PAWEL BULLOSA OF THE MIDDLE TURBINATE ON THE RIGHT. IT HAS PARADOXICAL CONFIGURATION ANATOMIC VARIATION. IMPRESSION: SOME PROGRESSIVE ATROPHY THE GREATER THAN EXPECTED FOR AGE BUT WITH PROPORTIONATE VENTRICULOMEGALY ON PREVIOUS STUDY. NO INTRACRANIAL HEMORRHAGE, ACUTE INFARCT, EDEMA, MASS OR MASS EFFECT. CHRONIC SMALL VESSEL WHITE MATTER ISCHEMIC CHANGES. CAST JUNCTION DISORIENTATION MAINTAINED. DEVIATED SEPTUM TOWARDS THE LEFT, PAWEL BULLOSA PARADOXICAL CONFIGURATION OF THE RIGHT MIDDLE TURBINATE ANATOMIC VARIATION. MUCOSAL THICKENING IN THE RIGHT MAXILLARY SINUS WITH IMPROVEMENT IN THE ETHMOID SINUSES AND THE SPHENOID, LEFT MAXILLARY AND FRONTAL SINUSES ARE CLEAR. NO FRACTURE SKULL BASE OR CALVARIUM <Electronically signed by Geoff Vazquez > 08/02/20 [id number]
[2020-08-02] MEDS ORDERED: LORazepam 2 MG TAB PO PRN ×2 (17:25→21:05)
[2020-08-02] MEDS ORDERED: PANTOPRAZOLE 40MG VIAL (C9113 PER 1) IV ONE (17:30)
[2020-08-02] MEDS ORDERED: LISI2.5T2 PO (18:15)
[2020-08-02] MEDS ORDERED: ACETAMINOPHEN TAB 650MG DOSE (2X325MG) PO PRN (18:35)
--- NOTE | 2020-08-02 18:58 | HPEPDOC ---
General Date of Admission 08/02/20 Date of Service: Aug 02, 2020 Chief Complaint The patient is a 60-year-old male admitted with a reason for visit of Etoh Intoxication. Source: Patient Exam Limitations: No limitations Severity: Moderate History of Present Illness Patient is 60 years old male with past medical history gastritis, esophagitis, hypertension, alcohol abuse, nails chronic fungal infection presented to the hospital with generalized weakness and syncope. Patient stated that he drinks alcohol daily basis routinely and for past few days had multiple falls, his friends convinced him to come to the emergency room. Patient denied any fever, chills, nausea, vomiting. He stated that he lives alone in his own apartment. In ER patient was found to have hemoglobin of 8, alcohol level of 0.3, CT head negative, chest x-ray negative for acute infiltrate. EKG did not show any acute ischemic changes. Of note patient had colonoscopy and EGD in 2018, colonoscopy was unremarkable, EGD showed gastritis and duodenitis. Patient denied history of any black stool or red blood in the stool. Home Medications Scheduled Lisinopril (Lisinopril) 2.5 Mg Tablet, 2.5 MG PO DAILY, (Reported) Allergies Coded Allergies: No Known Allergies (Unverified , 07/13/17) Past Medical History Medical History gastritis, esophagitis, hypertension, alcohol abuse, nails chronic fungal infection Family History I personally reviewed family history and found not pertinent Social History * Smoker: former Smoker Alcohol: heavy Drugs: denies A-FIB/CHADSVASC A-FIB History Current/History of A-Fib/PAF?: No Current PO Anticoag Therapy: No Review of Systems Constitutional: Denies: Chills, Fever Eyes: Denies: Pain, Vision change ENT: Denies: Head Aches Skin: Reports: Nail Changes Pulmonary: Denies: Dyspnea, Cough Cardiovascular: Denies: Chest Pain Gastrointestinal: Denies: Nausea, Abdominal Pain Genitourinary: Denies: Dysuria Hematologic: Denies: Bruising Endocrine: Denies: Polydipsia Musculoskeletal: Denies: Neck Pain, Back Pain Neurological: Denies: Weakness Psych: Reports: Mood Normal Physical Examination General Exam: Positive: Alert Eye Exam: Positive: PERRLA ENT Exam: Positive: Atraumatic Neck Exam: Positive: Supple; Negative: JVD Chest Exam: Positive: Clear to auscultation Telemetry: Positive: No significant arrhythmia Abdomen Exam: Positive: BS Hyperactive Extremity Exam: Negative: Clubbing, Swelling Skin Exam: Positive: Lesion (toe nails fungal lesions) Neuro Exam: Positive: Cranial Nerves 3-12 NL Psych Exam: Positive: Mental status NL Vital Signs Vital Signs Date Time Temp Pulse Resp B/P (MAP) Pulse Ox O2 Delivery O2 Flow Rate FiO2 08/02/20 17:42 72 119/74 08/02/20 15:35 97.9 17 100 Room Air Laboratory Data Labs 24H Laboratory Tests 2 08/02/20 15:31: Immature Granulocyte % (Auto) 0.3, Neutrophils (%) (Auto) 63.8, Lymphocytes (%) (Auto) 19.2L, Monocytes (%) (Auto) 13.4H, Eosinophils (%) (Auto) 2.0, Basophils (%) (Auto) 1.3H, Neutrophils # (Auto) 3.8, Lymphocytes # (Auto) 1.2L, Monocytes # (Auto) 0.8, Eosinophils # (Auto) 0.1, Basophils # (Auto) 0.1, Nucleated Red Blood Cells % (auto) 0.0, Anion Gap 8, Glomerular Filtration Rate > 60.0, Calcium Level 8.7L, Total Bilirubin 0.3, Direct Bilirubin 0.2, Aspartate Amino Transf (AST/SGOT) 109H, Alanine Aminotransferase (ALT/SGPT) 98H, Alkaline Phosphatase 90, Ammonia 26, Total Creatine Kinase 552H, Creatine Kinase MB 2.4, Creatine Kinase MB Relative Index 0.43, Troponin I < 0.02, Total Protein 7.5, Albumin 3.5, Albumin/Globulin Ratio 0.9, Thyroid Stimulating Hormone (TSH) 1.030, Salicylates Level 1.9L, Urine Opiates Screen NEGATIVE, Urine Methadone Screen NEGATIVE, Acetaminophen Level < 2.0L, Urine Barbiturates Screen NEGATIVE, Urine Phencyclidine Screen NEGATIVE, Urine Amphetamines Screen NEGATIVE, Urine Benzodiazepines Screen NEGATIVE, Urine Cocaine Metabolite Screen NEGATIVE, Urine Cannabinoids Screen NEGATIVE, Ethyl Alcohol Level 0.389H CBC/BMP Laboratory Tests 08/02/20 15:31 Microbiology Microbiology 08/02/20 Respiratory Virus Panel (PCR) (ROYCE) - Final, Complete Assessment/Plan Patient is 60 years old male with past medical history gastritis, esophagitis, hypertension, alcohol abuse, nails chronic fungal infection presented to the hospital with generalized weakness and syncope. Patient stated that he drinks alcohol daily basis routinely and for past few days had multiple falls, his friends convinced him to come to the emergency room. Patient denied any fever, chills, nausea, vomiting. He stated that he lives alone in his own apartment. In ER patient was found to have hemoglobin of 8, alcohol level of 0.3, CT head negative, chest x-ray negative for acute infiltrate. EKG did not show any acute ischemic changes. Of note patient had colonoscopy and EGD in 2019, colonoscopy was unremarkable, EGD showed gastritis and duodenitis Problems (1) Anemia Status: Acute Problem Text: Blood loss anemia secondary to GI bleed Stool for occult blood positive in ER Most likely patient developed upper GI bleed secondary to possible gastritis, duodenitis, peptic ulcers Patient will receive 2 units of blood due to symptomatic anemia CT abdomen/pelvis H&H every 6 hours PPI (2) GI bleeding Status: Acute Problem Text: See above (3) Hypertension Status: Chronic Problem Text: Continue lisinopril Blood pressures under control (4) Alcohol intoxication Status: Acute Problem Text: [facility]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
[2020-08-02] MEDS: NS 1,000 ML IV SCH (19:15)
[2020-08-02] MEDS ORDERED: ISOVUE-370 76% 100ML VIAL As Ordered ONE (19:55)
--- NOTE | 2020-08-02 20:40 | REPVR ---
PROCEDURE INFORMATION: Exam: CT Abdomen And Pelvis With Contrast Exam date and time: 08/02/2020 8:21 PM Age: 60 years old Clinical indication: Other: Gi bleed TECHNIQUE: Imaging protocol: Computed tomography of the abdomen and pelvis with contrast. Radiation optimization: All CT scans at this facility use at least one of these dose optimization techniques: automated exposure control; mA and/or kV adjustment per patient size (includes targeted exams where dose is matched to clinical indication); or iterative reconstruction. Contrast material: ISOVUE 370; Contrast volume: 100 ml; Contrast route: INTRAVENOUS (IV); COMPARISON: CR Abdomen,Flat Plate KUB 03/17/2019 1:32 PM FINDINGS: Liver: Examination of the liver demonstrates a lobular surface contour, and enlargement of the left and caudate lobes, findings consistent with cirrhosis. There is a diffuse decrease in hepatic parenchymal density, consistent with steatosis. Gallbladder and bile ducts: Normal. No calcified stones. No ductal dilation. Pancreas: Normal. No ductal dilation. Spleen: Normal. No splenomegaly. Adrenal glands: Normal. No mass. Kidneys and ureters: Simple cyst upper pole left kidney measures 14 mm. No follow-up suggested. Kidneys otherwise unremarkable. Stomach and bowel: Unremarkable. No obstruction. No mucosal thickening. Appendix: No evidence of appendicitis. Intraperitoneal space: Unremarkable. No free air. No significant fluid collection. Vasculature: The aortoiliac vessels demonstrate mild atherosclerotic calcification. Lymph nodes: Unremarkable. No enlarged lymph nodes. Urinary bladder: Unremarkable as visualized. Reproductive: Unremarkable as visualized. Bones/joints: Moderate central spinal stenosis L3-L4, severe central spinal stenosis L4-L5. Bulging annulus L5-S1. Soft tissues: Unremarkable. IMPRESSION: 1. Examination of the liver demonstrates a lobular surface contour, and enlargement of the left and caudate lobes, findings consistent with cirrhosis. 2. There is a diffuse decrease in hepatic parenchymal density, consistent with steatosis. 3. No acute findings. COMMENTS: Consistent with the [employer]'s Incidental Findings Committee white paper (J Am Prince Radiol 2018): Any incidental renal lesion less than 1 cm or classified as too small to characterize, or any incidental cystic renal lesion characterized as simple-appearing, is likely benign. No follow-up imaging is recommended for these lesions per consensus recommendations based on imaging criteria. Electronically signed by: Asad Abreu On 08/02/2020 20:40:11 PM
--- NOTE | 2020-08-02 20:52 | ECGEPIP ---
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
[2020-08-02 21:00] VITALS: BP 109/56
[2020-08-02] MEDS ORDERED: THIAMINE 100 MG TAB PO SCH (21:00)
[2020-08-02 21:53] VITALS: BP 126/61
[2020-08-02] MEDS: THIAMINE 100 MG TAB PO SCH (21:58)
[2020-08-02] MEDS ORDERED: NIX CREME RINSE 1% 60 ML KIT TOP ONE (22:00)
[2020-08-02 22:41] VITALS: BP 109/56
[2020-08-02 23:01] VITALS: BP 111/58
[2020-08-03] VITALS (12 sets, daily range): BP systolic 111–175; BP diastolic 57–87
[2020-08-03 03:45] LABS: HEMATOCRIT 32.1 % (42.0-52.0); HEMOGLOBIN 9.5 g/dl (13.5-17.5); MEAN CORPUSCULAR HEMOGLOBIN 23.5 pg (27.0-33.0); MEAN CORPUSCULAR HGB CONC 29.6 g/dl (32.0-36.5); MEAN CORPUSCULAR VOLUME 79.3 fl (80.0-96.0); PLATELET COUNT, AUTOMATED 354 10^3/uL (150-450); RED BLOOD COUNT 4.05 10^6/uL (4.30-6.10); WHITE BLOOD COUNT 3.8 10^3/uL (4.0-10.0)
[2020-08-03 04:18] LABS: ALBUMIN 2.9 GM/DL (3.2-5.2); ALT/SGPT 75 U/L (12-78); BILIRUBIN,TOTAL 0.6 MG/DL (0.2-1.0); BLOOD UREA NITROGEN 7 MG/DL (7-18); CALCIUM LEVEL 8.2 MG/DL (8.8-10.2); CARBON DIOXIDE LEVEL 23 MEQ/L (21-32); CHLORIDE LEVEL 114 MEQ/L (98-107); CREATININE FOR GFR 0.99 MG/DL (0.70-1.30); GLOMERULAR FILTRATION RATE > 60.0 (>49); GLUCOSE, FASTING 95 MG/DL (70-100); POTASSIUM SERUM 3.8 MEQ/L (3.5-5.1); SODIUM LEVEL 145 MEQ/L (136-145); TOTAL PROTEIN 6.7 GM/DL (6.4-8.2)
[2020-08-03] MEDS: NS 1,000 ML IV SCH ×2 (06:43→08:57)
[2020-08-03] MEDS: PANTOPRAZOLE 40MG VIAL (C9113 PER 1) IV SCH ×2 (08:51→20:54)
[2020-08-03] MEDS: THIAMINE 100 MG TAB PO SCH ×2 (08:52→20:54)
[2020-08-03] MEDS: NICOTINE 7 MG/24 HR TRANSDERMAL TD SCH (08:52)
[2020-08-03] MEDS: MULTIVITAMINS/MINERALS THERAP 1 TAB PO SCH (08:52)
[2020-08-03] MEDS: FOLIC ACID 1 MG TAB PO SCH (08:52)
[2020-08-03] MEDS ORDERED: MULTIVITAMINS/MINERALS THERAP 1 TAB PO SCH (09:00)
[2020-08-03] MEDS ORDERED: FOLIC ACID 1 MG TAB PO SCH (09:00)
[2020-08-03] MEDS ORDERED: LISINOPRIL *2.5 MG* TAB PO SCH (09:00)
[2020-08-03 11:18] LABS: HEMATOCRIT 32.2 % (42.0-52.0); HEMOGLOBIN 9.7 g/dl (13.5-17.5)
--- NOTE | 2020-08-03 15:06 | IPNPDOC ---
Text Note Date of Service The patient was seen on 08/03/20. NOTE Subjective: Patient stated that he is doing better today, feels more energy Objective: GENERAL APPEARANCE: Male with poor oral hygiene HEENT: no scleral icterus, no JVD, EOMI CARDIOVASCULAR: S1S2 LUNGS: CTA ABDOMEN: soft & not tender w palpitation MUSCULOSKELETAL: no cyanosis, no swelling INTEGUMENT: no generalized pallor NEUROLOGICAL: cranial nerve function from 2-12 intact intact, follows commands, speech not dysarthric Assessment/Plan Patient is 60 years old male with past medical history gastritis, esophagitis, hypertension, alcohol abuse, nails chronic fungal infection presented to the hospital with generalized weakness and syncope. Patient stated that he drinks alcohol daily basis routinely and for past few days had multiple falls, his friends convinced him to come to the emergency room. Patient denied any fever, chills, nausea, vomiting. He stated that he lives alone in his own apartment. In ER patient was found to have hemoglobin of 8, alcohol level of 0.3, CT head negative, chest x-ray negative for acute infiltrate. EKG did not show any acute ischemic changes. Of note patient had colonoscopy and EGD in 2019, colonoscopy was unremarkable, EGD showed gastritis and duodenitis Problems Anemia Blood loss anemia secondary to GI bleed Stool for occult blood positive in ER Most likely patient developed upper GI bleed secondary to possible gastritis, duodenitis, peptic ulcers Patient received 2 units of blood due to symptomatic anemia. 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
[2020-08-03 17:06] LABS: HEMATOCRIT 31.8 % (42.0-52.0); HEMOGLOBIN 9.6 g/dl (13.5-17.5)
[2020-08-03] MEDS: OCTREOTIDE ACETATE 100MCG/ML VIAL (J2354 PER 25MCG) SC SCH (18:53)
[2020-08-03 20:08] LABS: IRON (FE) 23 UG/DL (65-175); PERCENT SATURATION 6.5 % (19.7-50.0); TOTAL IRON BINDING CAPACITY 356 UG/DL (250-450)
[2020-08-03 20:21] LABS: FOLATE 13.2 NG/ML (>5.4)
[2020-08-03 21:02] LABS: HEPATITIS B CORE ANTIBODY IGM NEGATIVE (NEGATIVE)
[2020-08-03 21:05] LABS: HEPATITIS A ANTIBODY IGM NEGATIVE (NEGATIVE)
[2020-08-04] VITALS (7 sets, daily range): BP systolic 130–180; BP diastolic 70–96
[2020-08-04 00:16] LABS: HEMATOCRIT 31.1 % (42.0-52.0); HEMOGLOBIN 9.3 g/dl (13.5-17.5)
[2020-08-04] MEDS: OCTREOTIDE ACETATE 100MCG/ML VIAL (J2354 PER 25MCG) SC SCH ×3 (03:56→17:30)
[2020-08-04 05:30] LABS: BASO # 0.1 10^3/uL (0.0-0.2); BASO % 0.9 % (0.0-1.0); EOS # 0.2 10^3/uL (0.0-0.5); EOS % 2.4 % (0.0-3.0); HEMOGLOBIN 9.8 g/dl (13.5-17.5); LYMPH # 1.1 10^3/uL (1.5-5.0); LYMPH % 15.1 % (24.0-44.0); MEAN CORPUSCULAR HEMOGLOBIN 23.2 pg (27.0-33.0); MEAN CORPUSCULAR HGB CONC 29.7 g/dl (32.0-36.5); MONO # 0.9 10^3/uL (0.0-0.8); MONO % 12.1 % (2.0-8.0); NEUTROPHILS # 4.9 10^3/uL (1.5-8.5); NEUTROPHILS % 69.4 % (36.0-66.0); PLATELET COUNT, AUTOMATED 404 10^3/uL (150-450); RED BLOOD COUNT 4.23 10^6/uL (4.30-6.10)
[2020-08-04 05:31] LABS: HEMATOCRIT 32.5 % (42.0-52.0); HEMOGLOBIN 9.8 g/dl (13.5-17.5)
[2020-08-04 06:06] LABS: ALBUMIN 2.9 GM/DL (3.2-5.2); ALT/SGPT 54 U/L (12-78); BLOOD UREA NITROGEN 10 MG/DL (7-18); CALCIUM LEVEL 7.9 MG/DL (8.8-10.2); CARBON DIOXIDE LEVEL 24 MEQ/L (21-32); CHLORIDE LEVEL 109 MEQ/L (98-107); CREATININE FOR GFR 1.06 MG/DL (0.70-1.30); GLOMERULAR FILTRATION RATE > 60.0 (>49); GLUCOSE, FASTING 129 MG/DL (70-100); MAGNESIUM LEVEL 1.6 MG/DL (1.8-2.4); POTASSIUM SERUM 4.3 MEQ/L (3.5-5.1); SODIUM LEVEL 140 MEQ/L (136-145); TOTAL PROTEIN 6.4 GM/DL (6.4-8.2)
[2020-08-04] MEDS ORDERED: MAG SULF 1GM/100ML (MAG RUN) 1 GM in IV 1 EA IV ONE (09:00)
[2020-08-04] MEDS ORDERED: LISINOPRIL *2.5 MG* TAB PO SCH (09:00)
[2020-08-04] MEDS: MULTIVITAMINS/MINERALS THERAP 1 TAB PO SCH (09:35)
[2020-08-04] MEDS: THIAMINE 100 MG TAB PO SCH ×2 (09:35→19:56)
[2020-08-04] MEDS: FOLIC ACID 1 MG TAB PO SCH (09:35)
[2020-08-04] MEDS: PANTOPRAZOLE 40MG VIAL (C9113 PER 1) IV SCH ×2 (09:36→19:56)
[2020-08-04] MEDS: NICOTINE 7 MG/24 HR TRANSDERMAL TD SCH (09:36)
[2020-08-04 11:01] LABS: HEPATITIS B SURFACE ANTIGEN NEGATIVE (NEGATIVE)
[2020-08-04] MEDS ORDERED: SLF 3 ML SYR IV PRN (11:05)
[2020-08-04 12:30] LABS: HEMATOCRIT 33.9 % (42.0-52.0)
[2020-08-04] MEDS: SLF 3 ML SYR IV SCH ×2 (14:00→21:23)
--- NOTE | 2020-08-04 16:09 | IPNPDOC ---
Text Note Date of Service The patient was seen on 08/04/20. NOTE Subjective: No any acute events overnight. Patient denied fever, chills, nausea, vomiting, diarrhea or dysuria Objective: GENERAL APPEARANCE: Male with poor oral hygiene HEENT: no scleral icterus, no JVD, EOMI CARDIOVASCULAR: S1S2 LUNGS: CTA ABDOMEN: soft & not tender w palpitation MUSCULOSKELETAL: no cyanosis, no swelling INTEGUMENT: no generalized pallor NEUROLOGICAL: cranial nerve function from 2-12 intact intact, follows commands, speech not dysarthric Assessment/Plan Patient is 60 years old male with past medical history gastritis, esophagitis, hypertension, alcohol abuse, nails chronic fungal infection presented to the hospital with generalized weakness and syncope. Patient stated that he drinks alcohol daily basis routinely and for past few days had multiple falls, his friends convinced him to come to the emergency room. Patient denied any fever, chills, nausea, vomiting. He stated that he lives alone in his own apartment. In ER patient was found to have hemoglobin of 8, alcohol level of 0.3, CT head negative, chest x-ray negative for acute infiltrate. EKG did not show any acute ischemic changes. Of note patient had colonoscopy and EGD in 2019, colonoscopy was unremarkable, EGD showed gastritis and duodenitis Problems Anemia Blood loss anemia secondary to GI bleed Stool for occult blood positive in ER Most likely patient developed upper GI bleed secondary to possible gastritis, duodenitis, peptic ulcers Patient received 2 units of blood due to symptomatic anemia. 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
[2020-08-04 17:00] LABS: HEMATOCRIT 35.4 % (42.0-52.0); HEMOGLOBIN 10.6 g/dl (13.5-17.5)
[2020-08-04] MEDS ORDERED: fentaNYL 100 MCG/2 ML INJECTION (J3010) As Ordered ONE (18:21)
--- NOTE | 2020-08-04 18:56 | ROOR ---
Patient Name: Cliff Forman Procedure Date: 08/04/2020 10:40 AM Date of : 1960 Age: 60 Gender: Male Note Status: Finalized Procedure: Upper GI endoscopy Indications: Iron deficiency anemia Providers: Joe LUNDBERG MD Referring MD: 2. Inpatient 2. Inpatient Requesting Provider: Medicines: Monitored Anesthesia Care Complications: No immediate complications. Procedure: Pre-Anesthesia Assessment: - The heart rate, respiratory rate, oxygen saturations, blood pressure, adequacy of pulmonary ventilation, and response to care were monitored throughout the procedure. The Endoscope was introduced through the mouth, and advanced to the third part of duodenum. The upper GI endoscopy was accomplished without difficulty. The patient tolerated the procedure well. Findings: The Z-line was variable and was found 40 cm from the incisors. This was biopsied with a cold forceps for histology. The exam of the esophagus was otherwise normal. The entire examined stomach was normal. The examined duodenum was normal. Biopsies for histology were taken with a cold forceps for evaluation of celiac disease. Impression: - Z-line variable, 40 cm from the incisors. Biopsied. - Otherwise normal esophagus. (no varices) - Normal stomach. (no varices) - Normal examined duodenum. Biopsied. Recommendation: - Anemia likely multifactorial rather than GI blood loss. Rec: stop alcohol. Rec: Follow up with me in 2-4 weeks for review of biopsies. Procedure Code(s): --- Professional --- 84426, Esophagogastroduodenoscopy, flexible, transoral; with biopsy, single or multiple Diagnosis Code(s): --- Professional --- D50.9, Iron deficiency anemia, unspecified K22.8, Other specified diseases of esophagus CPT copyright 2019 [employer]. All rights reserved. The codes documented in this report are preliminary and upon email marketing assistant review may be revised to meet current compliance requirements. Joe Lundberg MD Joe LUNDBERG MD 08/04/2020 6:55:02 PM Electronically signed by Joe LUNDBERG MD Number of Addenda: 0 Note Initiated On: 08/04/2020 10:40 AM Estimated Blood Loss: Estimated blood loss: none.
[2020-08-04] MEDS ORDERED: ONDANSETRON 4MG/2ML VIAL IV PRN (19:05)
[2020-08-04] MEDS ORDERED: LR 1,000 ML IV SCH (19:05)
[2020-08-05] VITALS: BP 168/88
[2020-08-05] MEDS: OCTREOTIDE ACETATE 100MCG/ML VIAL (J2354 PER 25MCG) SC SCH ×2 (00:24→08:51)
[2020-08-05 04:00] VITALS: BP 163/80
[2020-08-05] MEDS: SLF 3 ML SYR IV SCH (04:47)
[2020-08-05 06:43] LABS: BASO # 0.1 10^3/uL (0.0-0.2); BASO % 0.9 % (0.0-1.0); EOS # 0.2 10^3/uL (0.0-0.5); HEMATOCRIT 32.7 % (42.0-52.0); HEMOGLOBIN 9.6 g/dl (13.5-17.5); LYMPH % 19.1 % (24.0-44.0); MEAN CORPUSCULAR HGB CONC 29.4 g/dl (32.0-36.5); MEAN CORPUSCULAR VOLUME 78.4 fl (80.0-96.0); MONO # 0.6 10^3/uL (0.0-0.8); MONO % 11.9 % (2.0-8.0); NEUTROPHILS # 3.5 10^3/uL (1.5-8.5); NEUTROPHILS % 64.7 % (36.0-66.0); PLATELET COUNT, AUTOMATED 379 10^3/uL (150-450); RED BLOOD COUNT 4.17 10^6/uL (4.30-6.10); WHITE BLOOD COUNT 5.4 10^3/uL (4.0-10.0)
[2020-08-05 07:03] LABS: ALT/SGPT 46 U/L (12-78); BILIRUBIN,TOTAL 1.2 MG/DL (0.2-1.0); BLOOD UREA NITROGEN 7 MG/DL (7-18); CALCIUM LEVEL 8.2 MG/DL (8.8-10.2); CARBON DIOXIDE LEVEL 28 MEQ/L (21-32); CHLORIDE LEVEL 104 MEQ/L (98-107); CREATININE FOR GFR 1.04 MG/DL (0.70-1.30); GLOMERULAR FILTRATION RATE > 60.0 (>49); GLUCOSE, FASTING 129 MG/DL (70-100); MAGNESIUM LEVEL 1.8 MG/DL (1.8-2.4); SODIUM LEVEL 137 MEQ/L (136-145); TOTAL PROTEIN 6.5 GM/DL (6.4-8.2)
[2020-08-05 07:28] VITALS: BP 155/70
[2020-08-05 08:00] VITALS: BP 158/72
[2020-08-05] MEDS: THIAMINE 100 MG TAB PO SCH (08:51)
[2020-08-05] MEDS: MULTIVITAMINS/MINERALS THERAP 1 TAB PO SCH (08:51)
[2020-08-05] MEDS: PANTOPRAZOLE 40MG VIAL (C9113 PER 1) IV SCH (08:51)
[2020-08-05 08:52] VITALS: BP 155/70
[2020-08-05] MEDS: FOLIC ACID 1 MG TAB PO SCH (08:52)
[2020-08-05] MEDS: NICOTINE 7 MG/24 HR TRANSDERMAL TD SCH (08:52)
[2020-08-05] MEDS ORDERED: IRON POLYSAC (NIFEREX) 150 MG CAP PO SCH (09:00)
[2020-08-05] MEDS ORDERED: CYANOCOBALAMIN 500 MCG TAB PO SCH (09:00)
[2020-08-05] MEDS ORDERED: FERR150C PO (10:19)
[2020-08-05] MEDS ORDERED: FOLI1TAB11 PO (10:19)
[2020-08-05] MEDS ORDERED: LISI20TA33 PO (10:19)
[2020-08-05] MEDS ORDERED: FOLTTAB9 PO (10:20)
--- NOTE | 2020-08-05 15:39 | DS.PDOC ---
Discharge Summary General Date of Admission Aug 02, 2020 at 18:34 Date of Discharge 08/05/20 Discharge Summary PROCEDURES PERFORMED DURING STAY: [None]. ADMITTING DIAGNOSES: Anemia Cirrhosis of the liver Hypertension Alcohol intoxication Infestation by bed bug GI bleed DISCHARGE DIAGNOSES: Anemia Cirrhosis of the liver Hypertension Alcohol intoxication Infestation by bed bug GI bleeding COMPLICATIONS/CHIEF COMPLAINT: Alcohol Intoxication/Gi Bleed. HISTORY OF PRESENT ILLNESS: Patient is 60 years old male with past medical history gastritis, esophagitis, hypertension, alcohol abuse, nails chronic brianna al infection presented to the hospital with generalized weakness and syncope. Patient stated that he drinks alcohol daily basis routinely and for past few days had multiple falls, his friends convinced him to come to the emergency room. Patient denied any fever, chills, nausea, vomiting. He stated that he lives alone in his own apartment. In ER patient was found to have hemoglobin of 8, alcohol level of 0.3, CT head negative, chest x-ray negative for acute infiltrate. EKG did not show any acute ischemic changes. Of note patient had colonoscopy and EGD in 2018, colonoscopy was unremarkable, EGD showed gastritis and duodenitis HOSPITAL COURSE: During hospital stay following issue addressed Anemia Most likely multifactorial Stool for occult blood positive in ER Most likely patient developed upper GI bleed secondary to possible gastritis, duodenitis, peptic ulcers Patient received 2 units of blood due to symptomatic anemia. Hemoglobin today 10 CT abdomen/pelvis showed Examination of the liver demonstrates a lobular surface contour, and enlargement of the left and caudate lobes, findings consistent with cirrhosis PPI EGD shows : - Z-line variable, 40 cm from the incisors. Biopsied. - Otherwise normal esophagus. (no varices) - Normal stomach. (no varices) - Normal examined duodenum. Biopsied. 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 ALLERGIES: Please see below. PHYSICAL EXAMINATION ON DISCHARGE: VITAL SIGNS: Please see below. GENERAL APPEARANCE: Male with poor oral hygiene HEENT: no scleral icterus, no JVD, EOMI CARDIOVASCULAR: S1S2 LUNGS: CTA ABDOMEN: soft & not tender w palpitation MUSCULOSKELETAL: no cyanosis, no swelling INTEGUMENT: no generalized pallor NEUROLOGICAL: cranial nerve function from 2-12 intact intact, follows commands, speech not dysarthric LABORATORY DATA: Please see below. IMAGING: See above PROGNOSIS: Fair ACTIVITY: [As tolerated]. DIET: Cardiac DISCHARGE PLAN: DISPOSITION: 01 Home, Self-Care. DISCHARGE INSTRUCTIONS: Rec: stop alcohol. Rec: Follow up with GI in 2-4 weeks for review of biopsies ITEMS TO FOLLOWUP ON ON OUTPATIENT: Follow-up with GI team and PCP DISCHARGE CONDITION: [Stable]. TIME SPENT ON DISCHARGE: 40 minutes. Vital Signs/I&Os Vital Signs Date Time Temp Pulse Resp B/P (MAP) Pulse Ox O2 Delivery O2 Flow Rate FiO2 08/05/20 08:52 155/70 08/05/20 08:00 67 08/05/20 07:28 98.5 19 100 Room Air I&O- Last 24 Hours up to 6 AM 08/05/20 05:59 Intake Total 1160 ml Output Total 1050 ml Balance 110 ml Laboratory Data Labs 24H Laboratory Tests 2 08/05/20 06:25: Immature Granulocyte % (Auto) 0.4, Neutrophils (%) (Auto) 64.7, Lymphocytes (%) (Auto) 19.1L, Monocytes (%) (Auto) 11.9H, Eosinophils (%) (Auto) 3.0, Basophils (%) (Auto) 0.9, Neutrophils # (Auto) 3.5, Lymphocytes # (Auto) 1.0L, Monocytes # (Auto) 0.6, Eosinophils # (Auto) 0.2, Basophils # (Auto) 0.1, Nucleated Red Blood Cells % (auto) 0.0, Anion Gap 5L, Glomerular Filtration Rate > 60.0, Calcium Level 8.2L, Magnesium Level 1.8, Total Bilirubin 1.2H, Aspartate Amino Transf (AST/SGOT) 28, Alanine Aminotransferase (ALT/SGPT) 46, Alkaline Phosphatase 57, Total Protein 6.5, Albumin 3.0L, Albumin/Globulin Ratio 0.9 CBC/BMP Laboratory Tests 08/04/20 16:44 08/05/20 06:25 Microbiology Microbiology 08/02/20 Respiratory Virus Panel (PCR) (ROYCE) - Final, Complete Discharge Medications Scheduled B12/Levomefolate Calcium/B-6 (Foltx Tablet) 1 Each Tablet, 1 TAB PO DAILY Folic Acid (Folic Acid) 1 Mg Tablet, 1 MG PO DAILY Iron Polysaccharide Complex (Ferrex 150) 150 Mg Capsule, 150 MG PO DAILY Lisinopril (Lisinopril) 20 Mg Tablet, 20 MG PO DAILY Allergies Coded Allergies: No Known Allergies (Unverified , 07/13/17) JAYDON CHACON DO Aug 05, 2020 15:39
[2020-08-07 16:09] LABS: ANCA-ATYPICAL <1:20 titer (Neg:<1:20); ANTI-MITOCHONDRIAL ANTIBODY <20.0 Units (0.0-20.0); ANTINUCLEAR ANTIBODIES DIRECT Negative (Negative); CYTOPLASMIC NEUTROP AB ANCA-C <1:20 titer (Neg:<1:20); LIVER-KIDNEY MICROSOMAL ABY <20.1 Units (0.0-20.0); PERINUCLEAR AB ANCA-P <1:20 titer (Neg:<1:20)
== END 2020-08-05 14:08 | disposition home or self-care (01) | DRG 253 ==
LOC: M ED 14:40 → M ED INP 18:34 → ENRESERV 20:05 → M PCU 20:50
PROVIDERS: ADMIT Internal Medicine; ATTEND Internal Medicine
PROC: 30233N1 Transfusion of Nonautologous Red Blood Cells into Peripheral Vein, Percutaneous Approach (ICD-10-PCS; principal; 2020-08-02)
PROC: 0DB98ZX Excision of Duodenum, Via Natural or Artificial Opening Endoscopic, Diagnostic (ICD-10-PCS; 2020-08-04)
DX: K92.2 Gastrointestinal hemorrhage, unspecified (principal); I10 Essential (primary) hypertension; F10.120 Alcohol abuse with intoxication, uncomplicated; B35.1 Tinea unguium; K70.30 Alcoholic cirrhosis of liver without ascites; D62 Acute posthemorrhagic anemia; B88.8 Other specified infestations; Z79.899 Other long term (current) drug therapy

== ENCOUNTER 2020-08-13 02:20 | Emergency (ER) | payer MEDICAID, OTHER ==
[~2020-08-13] VITALS: Ht 175.3 cm; Wt 127.3 kg
[~2020-08-13 02:20] MED LIST changes: +FERR150C PO; +FOLTTAB9 PO; +LISI2.5T2 PO; +LISI20TA33 PO
[2020-08-13 05:00] VITALS: BP 139/78
== END 2020-08-13 06:20 | disposition home or self-care (01) ==
LOC: M ED 02:20
DX: F10.129 Alcohol abuse with intoxication, unspecified (principal); B88.8 Other specified infestations; Z86.73 Personal history of transient ischemic attack (TIA), and cerebral infarction without residual deficits; Z79.899 Other long term (current) drug therapy

== ENCOUNTER 2020-08-22 03:46 | Emergency (ER) | payer OTHER ==
[~2020-08-22] VITALS: Ht 180.3 cm; Wt 90.9 kg
[2020-08-22 05:35] VITALS: BP 140/67
== END 2020-08-22 05:59 | disposition home or self-care (01) ==
LOC: M ED 03:46
DX: Z04.6 Encounter for general psychiatric examination, requested by authority (principal); B88.9 Infestation, unspecified; F10.120 Alcohol abuse with intoxication, uncomplicated

== ENCOUNTER 2020-09-18 19:00 | Emergency (ER) | payer OTHER ==
[~2020-09-18] VITALS: Ht 175.3 cm; Wt 82.0 kg
[2020-09-18] MEDS ORDERED: NS 1,000 ML IV ONE (20:45)
[2020-09-18 21:59] LABS: EOS % 0.5 % (0.0-3.0); HEMATOCRIT 30.2 % (42.0-52.0); HEMOGLOBIN 8.8 g/dl (13.5-17.5); LYMPH # 0.9 10^3/uL (1.5-5.0); LYMPH % 22.1 % (24.0-44.0); MEAN CORPUSCULAR HEMOGLOBIN 23.5 pg (27.0-33.0); MEAN CORPUSCULAR HGB CONC 29.1 g/dl (32.0-36.5); MEAN CORPUSCULAR VOLUME 80.7 fl (80.0-96.0); MONO # 0.3 10^3/uL (0.0-0.8); MONO % 6.8 % (2.0-8.0); NEUTROPHILS # 2.8 10^3/uL (1.5-8.5); NEUTROPHILS % 69.1 % (36.0-66.0); PLATELET COUNT, AUTOMATED 132 10^3/uL (150-450); RED BLOOD COUNT 3.74 10^6/uL (4.30-6.10); WHITE BLOOD COUNT 4.1 10^3/uL (4.0-10.0)
[2020-09-18 22:32] LABS: ACETAMINOPHEN LEVEL < 2.0 UG/ML (10.0-30.0); ALBUMIN 3.8 GM/DL (3.2-5.2); ALT/SGPT 51 U/L (12-78); BILIRUBIN,DIRECT 0.2 MG/DL (0.0-0.2); BILIRUBIN,TOTAL 0.8 MG/DL (0.2-1.0); BLOOD UREA NITROGEN 10 MG/DL (7-18); CALCIUM LEVEL 8.3 MG/DL (8.8-10.2); CARBON DIOXIDE LEVEL 20 MEQ/L (21-32); CHLORIDE LEVEL 108 MEQ/L (98-107); CK-MB VALUE MASS 2.8 NG/ML (<3.6); CPK CREATINE PHOSPHOKINASE 340 U/L (39-308); CREATININE FOR GFR 0.99 MG/DL (0.70-1.30); ETHYL ALCOHOL (ETHANOL) 0.436 % (0.000-0.010); GLOMERULAR FILTRATION RATE > 60.0 (>49); GLUCOSE, FASTING 79 MG/DL (70-100); MB/CK RELATIVE INDEX 0.82 (< OR =4); POTASSIUM SERUM 3.7 MEQ/L (3.5-5.1); SALICYLATE LEVEL < 1.7 MG/DL (5.0-30.0); SODIUM LEVEL 141 MEQ/L (136-145); TOTAL PROTEIN 8.2 GM/DL (6.4-8.2); TROPONIN I < 0.02 NG/ML (< 0.10)
[2020-09-18 23:00] LABS: AMPHETAMINES LEVEL URINE NEGATIVE (NEGATIVE); BARBITURATES URINE NEGATIVE (NEGATIVE); BENZODIAZEPINES URINE NEGATIVE (NEGATIVE); CANNABINOIDS URINE NEGATIVE (NEGATIVE); COCAINE METABOLITE URINE NEGATIVE (NEGATIVE); METHADONE URINE NEGATIVE (NEGATIVE); OPIATES URINE NEGATIVE (NEGATIVE); PHENCYCLIDINE URINE NEGATIVE (NEGATIVE)
[2020-09-19 03:16] VITALS: BP 133/56
--- NOTE | 2020-09-19 06:05 | ECGEPIP ---
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
== END 2020-09-19 03:43 | disposition home or self-care (01) ==
LOC: M ED 19:00
DX: F10.120 Alcohol abuse with intoxication, uncomplicated (principal)

== ENCOUNTER 2021-07-26 11:53 | Emergency (ER) | payer OTHER ==
[~2021-07-26] VITALS: Ht 177.8 cm; Wt 81.8 kg
[~2021-07-26 11:53] MED LIST changes: -LISI2.5T2 PO; +LISI2.5T9 PO; +OMEP-173 PO; -OMEP-218 PO
[2021-07-26 12:59] VITALS: BP 200/102
[2021-07-26 13:52] VITALS: BP 178/98
[2021-07-26] MEDS ORDERED: LISI20TA33 PO (14:03)
== END 2021-07-26 14:54 | disposition home or self-care (01) ==
LOC: M ED 11:53 → EDBD 11:53 → M ED 14:54
DX: S00.83XA Contusion of other part of head, initial encounter (principal); Y04.8XXA Assault by other bodily force, initial encounter; I10 Essential (primary) hypertension; J45.909 Unspecified asthma, uncomplicated; F10.10 Alcohol abuse, uncomplicated; Z79.811 Long term (current) use of aromatase inhibitors; Y92.9 Unspecified place or not applicable; Y93.9 Activity, unspecified; Y99.9 Unspecified external cause status

== ENCOUNTER 2021-07-27 14:28 | Emergency (ER) | payer OTHER ==
[~2021-07-27] VITALS: Ht 177.8 cm; Wt 86.4 kg
[2021-07-27 15:50] LABS: BASO # 0.1 10^3/uL (0.0-0.2); EOS # 0.1 10^3/uL (0.0-0.5); EOS % 2.3 % (0.0-3.0); HEMATOCRIT 28.6 % (42.0-52.0); HEMOGLOBIN 8.4 g/dl (13.5-17.5); LYMPH # 1.1 10^3/uL (1.5-5.0); LYMPH % 21.4 % (24.0-44.0); MEAN CORPUSCULAR HEMOGLOBIN 20.6 pg (27.0-33.0); MEAN CORPUSCULAR HGB CONC 29.4 g/dl (32.0-36.5); MEAN CORPUSCULAR VOLUME 70.1 fl (80.0-96.0); MONO # 0.6 10^3/uL (0.0-0.8); MONO % 11.2 % (2.0-8.0); NEUTROPHILS # 3.3 10^3/uL (1.5-8.5); NEUTROPHILS % 63.9 % (36.0-66.0); PLATELET COUNT, AUTOMATED 211 10^3/uL (150-450); RED BLOOD COUNT 4.08 10^6/uL (4.30-6.10); WHITE BLOOD COUNT 5.2 10^3/uL (4.0-10.0)
[2021-07-27 16:53] LABS: ACETAMINOPHEN LEVEL < 2.0 UG/ML (10.0-30.0); ALBUMIN 3.1 GM/DL (3.2-5.2); ALT/SGPT 40 U/L (12-78); BILIRUBIN,DIRECT 0.2 MG/DL (0.0-0.2); BILIRUBIN,TOTAL 0.4 MG/DL (0.2-1.0); BLOOD UREA NITROGEN 17 MG/DL (7-18); CARBON DIOXIDE LEVEL 20 MEQ/L (21-32); CHLORIDE LEVEL 104 MEQ/L (98-107); CREATININE FOR GFR 1.83 MG/DL (0.70-1.30); ETHYL ALCOHOL (ETHANOL) 0.425 % (0.000-0.010); GLOMERULAR FILTRATION RATE 40.1 (>49); GLUCOSE, FASTING 139 MG/DL (70-100); POTASSIUM SERUM 3.5 MEQ/L (3.5-5.1); SALICYLATE LEVEL < 1.7 MG/DL (5.0-30.0); SODIUM LEVEL 135 MEQ/L (136-145); TOTAL PROTEIN 7.1 GM/DL (6.4-8.2)
[2021-07-27 19:31] LABS: AMPHETAMINES LEVEL URINE NEGATIVE (NEGATIVE); BARBITURATES URINE NEGATIVE (NEGATIVE); BENZODIAZEPINES URINE NEGATIVE (NEGATIVE); CANNABINOIDS URINE NEGATIVE (NEGATIVE); COCAINE METABOLITE URINE NEGATIVE (NEGATIVE); METHADONE URINE NEGATIVE (NEGATIVE); OPIATES URINE NEGATIVE (NEGATIVE); PHENCYCLIDINE URINE NEGATIVE (NEGATIVE)
[2021-07-27 21:35] VITALS: BP 124/75
== END 2021-07-27 22:00 | disposition home or self-care (01) ==
LOC: M ED 14:28
DX: F10.129 Alcohol abuse with intoxication, unspecified (principal); I10 Essential (primary) hypertension; I25.2 Old myocardial infarction; Z79.811 Long term (current) use of aromatase inhibitors; Z79.899 Other long term (current) drug therapy

== ENCOUNTER 2021-08-21 00:52 | Inpatient (IN) | payer OTHER ==
[~2021-08-21] VITALS: Ht 177.8 cm; Wt 95.1 kg
[2021-08-21] VITALS (7 sets, daily range): BP systolic 96–184; BP diastolic 53–100
[2021-08-21] MEDS ORDERED: DONE5TAB82 (01:00)
[2021-08-21 01:28] LABS: BASO % 0.4 % (0.0-1.0); EOS # 0.1 10^3/uL (0.0-0.5); EOS % 1.2 % (0.0-3.0); HEMATOCRIT 28.4 % (42.0-52.0); HEMOGLOBIN 8.4 g/dl (13.5-17.5); LYMPH # 1.8 10^3/uL (1.5-5.0); LYMPH % 23.6 % (24.0-44.0); MEAN CORPUSCULAR HEMOGLOBIN 21.3 pg (27.0-33.0); MEAN CORPUSCULAR HGB CONC 29.6 g/dl (32.0-36.5); MEAN CORPUSCULAR VOLUME 72.1 fl (80.0-96.0); MONO # 0.7 10^3/uL (0.0-0.8); MONO % 8.7 % (2.0-8.0); NEUTROPHILS # 5.1 10^3/uL (1.5-8.5); NEUTROPHILS % 65.7 % (36.0-66.0); PLATELET COUNT, AUTOMATED 212 10^3/uL (150-450); RED BLOOD COUNT 3.94 10^6/uL (4.30-6.10); WHITE BLOOD COUNT 7.7 10^3/uL (4.0-10.0)
[2021-08-21 02:21] LABS: ALBUMIN 3.7 GM/DL (3.2-5.2); BILIRUBIN,DIRECT 0.3 MG/DL (0.0-0.2); CALCIUM LEVEL 8.3 MG/DL (8.8-10.2); CREATININE FOR GFR 2.36 MG/DL (0.70-1.30); ETHYL ALCOHOL (ETHANOL) 0.364 % (0.000-0.010); GLOMERULAR FILTRATION RATE 29.9 (>49); POTASSIUM SERUM 5.2 MEQ/L (3.5-5.1); TOTAL PROTEIN 7.8 GM/DL (6.4-8.2)
[2021-08-21] MEDS ORDERED: ALBUTEROL SULFATE 2.5 MG/0.5 ML INH NEB SOLN NEB PRN (04:05)
[2021-08-21] MEDS ORDERED: LORazepam 2 MG TAB PO PRN (04:05)
[2021-08-21] MEDS ORDERED: THIAMINE 200MG 2ML VIAL IM ONE (04:30)
[2021-08-21] MEDS: NS 1,000 ML IV SCH ×2 (05:05→08:43)
[2021-08-21 05:23] LABS: CALCIUM LEVEL 8.3 MG/DL (8.8-10.2); CREATININE FOR GFR 2.11 MG/DL (0.70-1.30); GLOMERULAR FILTRATION RATE 34.1 (>49); MAGNESIUM LEVEL 2.3 MG/DL (1.8-2.4); PHOSPHORUS LEVEL 3.7 MG/DL (2.5-4.9); POTASSIUM SERUM 4.4 MEQ/L (3.5-5.1)
[2021-08-21] MEDS ORDERED: LISI20TA33 PO (06:35)
[2021-08-21] MEDS ORDERED: ARIC1TAB PO (06:35)
[2021-08-21] MEDS ORDERED: med note (07:22)
[2021-08-21] MEDS ORDERED: HOME MED LIST COMPLETE! XX SCH (07:25)
[2021-08-21] MEDS: MULTIVITAMINS/MINERALS THERAP 1 TAB PO SCH (08:42)
[2021-08-21] MEDS: FOLIC ACID 1 MG TAB PO SCH (08:42)
[2021-08-21 09:43] LABS: CALCIUM LEVEL 8.2 MG/DL (8.8-10.2); CREATININE FOR GFR 1.84 MG/DL (0.70-1.30); GLOMERULAR FILTRATION RATE 39.9 (>49); PERCENT SATURATION 9.8 % (19.7-50.0); POTASSIUM SERUM 4.4 MEQ/L (3.5-5.1)
[2021-08-21 10:13] LABS: FOLATE 8.1 NG/ML (>5.4)
[2021-08-21 10:19] LABS: APPEARANCE, URINE CLEAR (CLEAR); BACTERIA, URINE AUTO 1+ (NEGATIVE); BILIRUBIN, URINE AUTO NEGATIVE (NEGATIVE); BLOOD, URINE BLOOD 2+ (NEGATIVE); COLOR, URINE STRAW (YELLOW); GLUCOSE, URINE (UA) AUTO 1+ mg/dL (NEGATIVE); KETONE, URINE AUTO NEGATIVE (NEGATIVE); LEUKOCYTE ESTERASE, URINE AUTO NEGATIVE (NEGATIVE); MUCUS, URINE SMALL (NEGATIVE); NITRITE, URINE AUTO NEGATIVE (NEGATIVE); PROTEIN, URINE AUTO NEGATIVE (NEGATIVE); RBC, URINE AUTO 0 /HPF (0-3); SPECIFIC GRAVITY URINE AUTO 1.004 (1.002-1.035); SQUAMOUS EPITHELIAL CELL UR AU 0 /HPF (0-6); UROBILINOGEN, URINE AUTO 0.2 mg/dL (0.0-2.0); WBC, URINE AUTO 1 /HPF (0-3)
[2021-08-21 14:02] LABS: CALCIUM LEVEL 8.2 MG/DL (8.8-10.2); CREATININE FOR GFR 2.28 MG/DL (0.70-1.30); GLOMERULAR FILTRATION RATE 31.1 (>49); POTASSIUM SERUM 3.9 MEQ/L (3.5-5.1)
[2021-08-21 17:18] LABS: CALCIUM LEVEL 8.6 MG/DL (8.8-10.2); CREATININE FOR GFR 1.97 MG/DL (0.70-1.30); GLOMERULAR FILTRATION RATE 36.9 (>49); POTASSIUM SERUM 4.2 MEQ/L (3.5-5.1)
[2021-08-21] MEDS ORDERED: D5W 1,000 ML IV ONE (17:40)
[2021-08-21] MEDS ORDERED: DESMOPRESSIN ACETATE 2 MCG in NS 50 ML IV ONE (19:00)
[2021-08-21] MEDS: THIAMINE 100 MG TAB PO SCH (21:12)
[2021-08-21] MEDS ORDERED: ACETAMINOPHEN TAB 650MG DOSE (2X325MG) PO ONE (21:30)
[2021-08-21 21:44] LABS: CALCIUM LEVEL 8.6 MG/DL (8.8-10.2); CREATININE FOR GFR 2.04 MG/DL (0.70-1.30); GLOMERULAR FILTRATION RATE 35.4 (>49); POTASSIUM SERUM 4.2 MEQ/L (3.5-5.1)
[2021-08-21] MEDS ORDERED: cloNIDine 0.2 MG TAB PO ONE (21:55)
[2021-08-22] VITALS (7 sets, daily range): BP systolic 105–150; BP diastolic 59–78
[2021-08-22 06:20] LABS: HEMATOCRIT 28.1 % (42.0-52.0); HEMOGLOBIN 8.5 g/dl (13.5-17.5); MEAN CORPUSCULAR HEMOGLOBIN 21.9 pg (27.0-33.0); MEAN CORPUSCULAR HGB CONC 30.2 g/dl (32.0-36.5); MEAN CORPUSCULAR VOLUME 72.4 fl (80.0-96.0); PLATELET COUNT, AUTOMATED 169 10^3/uL (150-450); RED BLOOD COUNT 3.88 10^6/uL (4.30-6.10)
[2021-08-22 06:50] LABS: CALCIUM LEVEL 8.9 MG/DL (8.8-10.2); CREATININE FOR GFR 1.57 MG/DL (0.70-1.30); GLOMERULAR FILTRATION RATE 47.9 (>49); POTASSIUM SERUM 4.3 MEQ/L (3.5-5.1); THYROID STIMULATING HORMONE 2.17 uIU/ML (0.358-3.740)
[2021-08-22] MEDS: THIAMINE 100 MG TAB PO SCH ×2 (08:54→20:49)
[2021-08-22] MEDS: MULTIVITAMINS/MINERALS THERAP 1 TAB PO SCH (08:54)
[2021-08-22] MEDS: FOLIC ACID 1 MG TAB PO SCH (08:54)
[2021-08-22] MEDS ORDERED: cloNIDine 0.2 MG TAB PO SCH (09:00)
[2021-08-22] MEDS ORDERED: NICOTINE 7 MG/24 HR TRANSDERMAL TD ONE (09:30)
[2021-08-22] MEDS ORDERED: FERRIC CARBOXYMALTOSE INJ 750 MG, VIAL MATE ADAPTER 1 EACH in NS 250 ML IV ONE (12:00)
[2021-08-22] MEDS: NYSTATIN 100,000 UNITS/GM TOPICAL PWD 15 GM TOP SCH ×2 (13:54→20:49)
[2021-08-22 19:44] LABS: CREATININE FOR GFR 1.57 MG/DL (0.70-1.30); GLOMERULAR FILTRATION RATE 47.9 (>49); POTASSIUM SERUM 4.1 MEQ/L (3.5-5.1)
[2021-08-22] MEDS: cloNIDine 0.1MG TABLET PO SCH ×2 (20:49→20:50)
[2021-08-23] VITALS (7 sets, daily range): BP systolic 150–176; BP diastolic 74–89
[2021-08-23 06:32] LABS: PHOSPHORUS LEVEL 3.2 MG/DL (2.5-4.9)
[2021-08-23 07:54] LABS: BASO % 0.9 % (0.0-1.0); EOS # 0.1 10^3/uL (0.0-0.5); EOS % 1.7 % (0.0-3.0); HEMATOCRIT 26.9 % (42.0-52.0); HEMOGLOBIN 7.9 g/dl (13.5-17.5); LYMPH # 0.8 10^3/uL (1.5-5.0); LYMPH % 22.3 % (24.0-44.0); MEAN CORPUSCULAR HEMOGLOBIN 21.2 pg (27.0-33.0); MEAN CORPUSCULAR HGB CONC 29.4 g/dl (32.0-36.5); MEAN CORPUSCULAR VOLUME 72.1 fl (80.0-96.0); MONO # 0.6 10^3/uL (0.0-0.8); MONO % 17.7 % (2.0-8.0); NEUTROPHILS % 56.8 % (36.0-66.0); PLATELET COUNT, AUTOMATED 194 10^3/uL (150-450); RED BLOOD COUNT 3.73 10^6/uL (4.30-6.10); WHITE BLOOD COUNT 3.5 10^3/uL (4.0-10.0)
[2021-08-23] MEDS: MULTIVITAMINS/MINERALS THERAP 1 TAB PO SCH (07:59)
[2021-08-23] MEDS: THIAMINE 100 MG TAB PO SCH ×2 (07:59→20:09)
[2021-08-23] MEDS: NYSTATIN 100,000 UNITS/GM TOPICAL PWD 15 GM TOP SCH ×2 (08:00→20:09)
[2021-08-23] MEDS: FOLIC ACID 1 MG TAB PO SCH (08:00)
[2021-08-23] MEDS: NICOTINE 7 MG/24 HR TRANSDERMAL TD SCH (08:00)
[2021-08-23] MEDS: cloNIDine 0.1MG TABLET PO SCH ×2 (08:00→20:09)
[2021-08-23 08:02] LABS: CALCIUM LEVEL 8.6 MG/DL (8.8-10.2); CREATININE FOR GFR 1.51 MG/DL (0.70-1.30); GLOMERULAR FILTRATION RATE 50.1 (>49); POTASSIUM SERUM 4.4 MEQ/L (3.5-5.1)
[2021-08-23 11:12] LABS: OSMOLALITY URINE 429 MOSM/KG (50-1400)
[2021-08-23 11:23] LABS: SODIUM,RANDOM URINE 81 MEQ/L
[2021-08-23] MEDS ORDERED: TOLVAPTAN 7.5 MG HALF-TAB PO ONE (14:00)
[2021-08-23 20:27] LABS: CALCIUM LEVEL 9.1 MG/DL (8.8-10.2); CREATININE FOR GFR 1.58 MG/DL (0.70-1.30); GLOMERULAR FILTRATION RATE 47.5 (>49); POTASSIUM SERUM 4.5 MEQ/L (3.5-5.1)
[2021-08-24 00:15] VITALS: BP 139/81
[2021-08-24 04:26] VITALS: BP 136/80
[2021-08-24 08:22] VITALS: BP 138/82
[2021-08-24 08:23] LABS: BASO # 0.1 10^3/uL (0.0-0.2); BASO % 1.5 % (0.0-1.0); EOS # 0.1 10^3/uL (0.0-0.5); EOS % 1.5 % (0.0-3.0); HEMATOCRIT 32.9 % (42.0-52.0); HEMOGLOBIN 9.6 g/dl (13.5-17.5); LYMPH % 20.5 % (24.0-44.0); MEAN CORPUSCULAR HEMOGLOBIN 21.8 pg (27.0-33.0); MEAN CORPUSCULAR HGB CONC 29.2 g/dl (32.0-36.5); MEAN CORPUSCULAR VOLUME 74.6 fl (80.0-96.0); MONO # 0.8 10^3/uL (0.0-0.8); MONO % 16.2 % (2.0-8.0); NEUTROPHILS # 2.8 10^3/uL (1.5-8.5); NEUTROPHILS % 60.1 % (36.0-66.0); PLATELET COUNT, AUTOMATED 248 10^3/uL (150-450); RED BLOOD COUNT 4.41 10^6/uL (4.30-6.10); WHITE BLOOD COUNT 4.7 10^3/uL (4.0-10.0)
[2021-08-24] MEDS: NICOTINE 7 MG/24 HR TRANSDERMAL TD SCH (08:24)
[2021-08-24] MEDS: THIAMINE 100 MG TAB PO SCH (08:24)
[2021-08-24] MEDS: MULTIVITAMINS/MINERALS THERAP 1 TAB PO SCH (08:24)
[2021-08-24] MEDS: cloNIDine 0.1MG TABLET PO SCH ×2 (08:25→20:26)
[2021-08-24] MEDS: FOLIC ACID 1 MG TAB PO SCH (08:25)
[2021-08-24] MEDS: NYSTATIN 100,000 UNITS/GM TOPICAL PWD 15 GM TOP SCH ×2 (08:28→20:26)
[2021-08-24 08:47] LABS: CREATININE FOR GFR 1.35 MG/DL (0.70-1.30); POTASSIUM SERUM 4.6 MEQ/L (3.5-5.1)
[2021-08-24 12:00] VITALS: BP 123/71
[2021-08-24 16:00] VITALS: BP 153/84
[2021-08-24 20:00] VITALS: BP 157/71
[2021-08-25 04:00] VITALS: BP 168/96
[2021-08-25 06:15] LABS: BASO # 0.1 10^3/uL (0.0-0.2); BASO % 1.5 % (0.0-1.0); EOS # 0.1 10^3/uL (0.0-0.5); EOS % 1.8 % (0.0-3.0); HEMATOCRIT 32.7 % (42.0-52.0); HEMOGLOBIN 9.6 g/dl (13.5-17.5); LYMPH % 17.4 % (24.0-44.0); MEAN CORPUSCULAR HEMOGLOBIN 21.8 pg (27.0-33.0); MEAN CORPUSCULAR HGB CONC 29.4 g/dl (32.0-36.5); MEAN CORPUSCULAR VOLUME 74.3 fl (80.0-96.0); MONO # 0.9 10^3/uL (0.0-0.8); MONO % 15.9 % (2.0-8.0); NEUTROPHILS # 3.4 10^3/uL (1.5-8.5); NEUTROPHILS % 62.9 % (36.0-66.0); PLATELET COUNT, AUTOMATED 292 10^3/uL (150-450); WHITE BLOOD COUNT 5.5 10^3/uL (4.0-10.0)
[2021-08-25 06:45] LABS: CALCIUM LEVEL 9.6 MG/DL (8.8-10.2); CREATININE FOR GFR 1.47 MG/DL (0.70-1.30); GLOMERULAR FILTRATION RATE 51.7 (>49); POTASSIUM SERUM 4.2 MEQ/L (3.5-5.1)
[2021-08-25 08:40] VITALS: BP 220/102
[2021-08-25] MEDS: cloNIDine 0.1MG TABLET PO SCH (08:40)
[2021-08-25] MEDS: MULTIVITAMINS/MINERALS THERAP 1 TAB PO SCH (08:40)
[2021-08-25] MEDS: NICOTINE 7 MG/24 HR TRANSDERMAL TD SCH (08:40)
[2021-08-25] MEDS: FOLIC ACID 1 MG TAB PO SCH (08:41)
[2021-08-25] MEDS: NYSTATIN 100,000 UNITS/GM TOPICAL PWD 15 GM TOP SCH (08:42)
[2021-08-25] MEDS ORDERED: amLODIPine 5 MG TAB PO SCH (09:00)
[2021-08-25 09:01] VITALS: BP 220/102
[2021-08-25 12:00] VITALS: BP 114/77
[2021-08-25] MEDS ORDERED: CLONI1TA PO (12:04)
[2021-08-25] MEDS ORDERED: VITMTA PO (12:04)
[2021-08-25] MEDS ORDERED: AMLO1TAB24 PO (12:04)
[2021-08-25] MEDS ORDERED: FOLI1TAB11 PO (12:04)
[2021-08-26] MEDS ORDERED: amLODIPine 5 MG TAB PO SCH (09:00)
== END 2021-08-25 13:21 | disposition home health service (06) | DRG 422 ==
LOC: M ED 00:52 → M ED INP 04:05 → ENRESERV 06:11 → M PCU 07:56
PROVIDERS: ADMIT Internal Medicine; ATTEND Internal Medicine Nephrology
DX: E87.1 Hypo-osmolality and hyponatremia (principal); N17.9 Acute kidney failure, unspecified; E87.2 Acidosis; I27.20 Pulmonary hypertension, unspecified; K70.31 Alcoholic cirrhosis of liver with ascites; F10.129 Alcohol abuse with intoxication, unspecified; I10 Essential (primary) hypertension; D50.9 Iron deficiency anemia, unspecified; E86.9 Volume depletion, unspecified; I35.0 Nonrheumatic aortic (valve) stenosis; R29.6 Repeated falls; R74.01 Elevation of levels of liver transaminase levels; Z79.899 Other long term (current) drug therapy; K29.70 Gastritis, unspecified, without bleeding; K29.80 Duodenitis without bleeding

== ENCOUNTER 2021-11-09 23:28 | Emergency (ER) | payer OTHER ==
[~2021-11-09] VITALS: Ht 177.8 cm; Wt 100.0 kg
[~2021-11-09 23:28] MED LIST changes: +AMLO1TAB24 PO; +ARIC1TAB PO; +CLONI1TA PO; +DONE5TAB82; +med note
[2021-11-10 01:08] LABS: HEMATOCRIT 35.7 % (42.0-52.0); HEMOGLOBIN 11.9 g/dl (13.5-17.5); MEAN CORPUSCULAR HEMOGLOBIN 29.5 pg (27.0-33.0); MEAN CORPUSCULAR HGB CONC 33.3 g/dl (32.0-36.5); MEAN CORPUSCULAR VOLUME 88.6 fl (80.0-96.0); PLATELET COUNT, AUTOMATED 191 10^3/uL (150-450); RED BLOOD COUNT 4.03 10^6/uL (4.30-6.10); WHITE BLOOD COUNT 7.6 10^3/uL (4.0-10.0)
[2021-11-10 01:33] LABS: AMPHETAMINES LEVEL URINE NEGATIVE (NEGATIVE); BARBITURATES URINE NEGATIVE (NEGATIVE); BENZODIAZEPINES URINE NEGATIVE (NEGATIVE); CANNABINOIDS URINE NEGATIVE (NEGATIVE); COCAINE METABOLITE URINE NEGATIVE (NEGATIVE); METHADONE URINE NEGATIVE (NEGATIVE); OPIATES URINE NEGATIVE (NEGATIVE); PHENCYCLIDINE URINE NEGATIVE (NEGATIVE)
[2021-11-10 01:44] LABS: ACETAMINOPHEN LEVEL < 2.0 UG/ML (10.0-30.0); ALBUMIN 3.7 GM/DL (3.2-5.2); ALT/SGPT 33 U/L (12-78); BILIRUBIN,DIRECT 0.2 MG/DL (0.0-0.2); BILIRUBIN,TOTAL 0.5 MG/DL (0.2-1.0); BLOOD UREA NITROGEN 7 MG/DL (7-18); CALCIUM LEVEL 8.7 MG/DL (8.8-10.2); CARBON DIOXIDE LEVEL 23 MEQ/L (21-32); CHLORIDE LEVEL 104 MEQ/L (98-107); CREATININE FOR GFR 1.17 MG/DL (0.70-1.30); ETHYL ALCOHOL (ETHANOL) 0.421 % (0.000-0.010); GLOMERULAR FILTRATION RATE > 60.0 (>49); GLUCOSE, FASTING 144 MG/DL (70-100); POTASSIUM SERUM 3.6 MEQ/L (3.5-5.1); SALICYLATE LEVEL 2.3 MG/DL (5.0-30.0); SODIUM LEVEL 136 MEQ/L (136-145); TOTAL PROTEIN 8.3 GM/DL (6.4-8.2)
[2021-11-10] MEDS ORDERED: NS 1,000 ML IV ONE (04:00)
[2021-11-10] MEDS ORDERED: LORazepam 2 MG TAB PO PRN (08:25)
[2021-11-10] MEDS ORDERED: THIAMINE 100 MG TAB PO SCH (09:00)
[2021-11-10] MEDS ORDERED: FOLIC ACID 1 MG TAB PO SCH (09:00)
[2021-11-10] MEDS ORDERED: MULTIVITAMINS/MINERALS THERAP 1 TAB PO SCH (09:00)
[2021-11-10 10:04] VITALS: BP 142/70
== END 2021-11-10 10:05 | disposition home or self-care (01) ==
LOC: EDBD 23:28 → M ED 23:28
DX: F10.288 Alcohol dependence with other alcohol-induced disorder (principal); I10 Essential (primary) hypertension; F17.200 Nicotine dependence, unspecified, uncomplicated; Z79.899 Other long term (current) drug therapy

== ENCOUNTER 2021-12-07 18:20 | Inpatient (IN) | payer OTHER ==
[~2021-12-07] VITALS: Ht 177.8 cm; Wt 97.6 kg
[2021-12-07] MEDS ORDERED: LIDOCAINE 1% MDV 20ML VIAL SC ONE (20:00)
[2021-12-07] MEDS ORDERED: BOOSTRIX/ADACEL VACCINE (DIPHTH/PERTUSS/ACELL/TETANUS) 0.5ML SYR IM.IMMUN ONE (20:10)
[2021-12-07 20:42] LABS: BASO # 0.1 10^3/uL (0.0-0.2); BASO % 0.8 % (0.0-1.0); EOS % 0.5 % (0.0-3.0); HEMATOCRIT 33.7 % (42.0-52.0); HEMOGLOBIN 10.9 g/dl (13.5-17.5); LYMPH # 1.3 10^3/uL (1.5-5.0); LYMPH % 16.5 % (24.0-44.0); MEAN CORPUSCULAR HEMOGLOBIN 30.1 pg (27.0-33.0); MEAN CORPUSCULAR HGB CONC 32.3 g/dl (32.0-36.5); MEAN CORPUSCULAR VOLUME 93.1 fl (80.0-96.0); MONO # 0.8 10^3/uL (0.0-0.8); MONO % 10.1 % (2.0-8.0); NEUTROPHILS # 5.7 10^3/uL (1.5-8.5); NEUTROPHILS % 71.7 % (36.0-66.0); PLATELET COUNT, AUTOMATED 228 10^3/uL (150-450); RED BLOOD COUNT 3.62 10^6/uL (4.30-6.10)
[2021-12-07] MEDS: THIAMINE 100 MG TAB PO SCH (21:00)
[2021-12-07] MEDS: cloNIDine 0.1MG TABLET PO SCH (21:00)
[2021-12-07 21:26] LABS: ALBUMIN 3.4 GM/DL (3.2-5.2); BILIRUBIN,DIRECT 0.2 MG/DL (0.0-0.2); BILIRUBIN,TOTAL 0.6 MG/DL (0.2-1.0); CALCIUM LEVEL 8.7 MG/DL (8.8-10.2); CREATININE FOR GFR 1.31 MG/DL (0.70-1.30); ETHYL ALCOHOL (ETHANOL) 0.275 % (0.000-0.010); POTASSIUM SERUM 3.8 MEQ/L (3.5-5.1); THYROID STIMULATING HORMONE 2.15 uIU/ML (0.358-3.740); TOTAL PROTEIN 7.9 GM/DL (6.4-8.2)
[2021-12-07] MEDS ORDERED: LABETALOL 100MG/20ML VIAL IV STA (22:24)
[2021-12-07 23:35] LABS: RSV AMPLIFICATION NEGATIVE (NEGATIVE)
[2021-12-08] VITALS (12 sets, daily range): BP systolic 115–159; BP diastolic 68–78
[2021-12-08] MEDS ORDERED: THERTAB52 PO (00:15)
[2021-12-08] MEDS ORDERED: AMLO1TAB25 PO (00:15)
[2021-12-08] MEDS ORDERED: MED REC COMMENT (00:15)
[2021-12-08] MEDS ORDERED: CLONI1TA PO (00:15)
[2021-12-08] MEDS ORDERED: HOME MED LIST COMPLETE! XX SCH (00:20)
[2021-12-08 07:24] LABS: BASO % 0.5 % (0.0-1.0); EOS % 0.3 % (0.0-3.0); HEMATOCRIT 32.8 % (42.0-52.0); HEMOGLOBIN 10.8 g/dl (13.5-17.5); LYMPH # 0.8 10^3/uL (1.5-5.0); LYMPH % 11.3 % (24.0-44.0); MEAN CORPUSCULAR HEMOGLOBIN 30.3 pg (27.0-33.0); MEAN CORPUSCULAR HGB CONC 32.9 g/dl (32.0-36.5); MEAN CORPUSCULAR VOLUME 92.1 fl (80.0-96.0); MONO # 0.7 10^3/uL (0.0-0.8); MONO % 10.7 % (2.0-8.0); NEUTROPHILS # 5.1 10^3/uL (1.5-8.5); NEUTROPHILS % 76.7 % (36.0-66.0); PLATELET COUNT, AUTOMATED 204 10^3/uL (150-450); RED BLOOD COUNT 3.56 10^6/uL (4.30-6.10); WHITE BLOOD COUNT 6.6 10^3/uL (4.0-10.0)
[2021-12-08 07:58] LABS: BLOOD UREA NITROGEN 8 MG/DL (7-18); CALCIUM LEVEL 8.6 MG/DL (8.8-10.2); CARBON DIOXIDE LEVEL 22 MEQ/L (21-32); CHLORIDE LEVEL 107 MEQ/L (98-107); CREATININE FOR GFR 1.16 MG/DL (0.70-1.30); GLOMERULAR FILTRATION RATE > 60.0 (>49); GLUCOSE, FASTING 123 MG/DL (70-100); POTASSIUM SERUM 3.7 MEQ/L (3.5-5.1); SODIUM LEVEL 139 MEQ/L (136-145)
[2021-12-08] MEDS: THIAMINE 100 MG TAB PO SCH ×2 (09:32→20:41)
[2021-12-08] MEDS: FOLIC ACID 1MG TAB PO SCH (09:32)
[2021-12-08] MEDS: MULTIVITAMINS/MINERALS THERAP 1 TAB PO SCH (09:32)
[2021-12-08] MEDS: cloNIDine 0.1MG TABLET PO SCH ×2 (09:32→20:41)
[2021-12-08] MEDS: LORazepam 2 MG TAB PO PRN ×2 (11:18→17:41)
[2021-12-08] MEDS: ENOXAPARIN 40MG/0.4ML SYRINGE (J1650 PER 10MG) SC SCH (20:41)
[2021-12-09] VITALS (14 sets, daily range): BP systolic 132–182; BP diastolic 72–108
[2021-12-09 06:48] LABS: HEMATOCRIT 35.9 % (42.0-52.0); HEMOGLOBIN 11.2 g/dl (13.5-17.5); MEAN CORPUSCULAR HEMOGLOBIN 29.9 pg (27.0-33.0); MEAN CORPUSCULAR HGB CONC 31.2 g/dl (32.0-36.5); PLATELET COUNT, AUTOMATED 220 10^3/uL (150-450); RED BLOOD COUNT 3.74 10^6/uL (4.30-6.10); WHITE BLOOD COUNT 6.3 10^3/uL (4.0-10.0)
[2021-12-09 07:32] LABS: ALBUMIN 2.9 GM/DL (3.2-5.2); ALT/SGPT 20 U/L (12-78); BILIRUBIN,TOTAL 1.5 MG/DL (0.2-1.0); BLOOD UREA NITROGEN 17 MG/DL (7-18); CALCIUM LEVEL 8.7 MG/DL (8.8-10.2); CARBON DIOXIDE LEVEL 25 MEQ/L (21-32); CHLORIDE LEVEL 105 MEQ/L (98-107); CREATININE FOR GFR 1.22 MG/DL (0.70-1.30); GLOMERULAR FILTRATION RATE > 60.0 (>49); GLUCOSE, FASTING 129 MG/DL (70-100); POTASSIUM SERUM 3.8 MEQ/L (3.5-5.1); SODIUM LEVEL 138 MEQ/L (136-145); TOTAL PROTEIN 6.9 GM/DL (6.4-8.2)
[2021-12-09] MEDS: MULTIVITAMINS/MINERALS THERAP 1 TAB PO SCH (09:40)
[2021-12-09] MEDS: THIAMINE 100 MG TAB PO SCH ×2 (09:40→21:13)
[2021-12-09] MEDS: cloNIDine 0.1MG TABLET PO SCH ×2 (09:40→21:15)
[2021-12-09] MEDS: FOLIC ACID 1MG TAB PO SCH (09:40)
[2021-12-09] MEDS: LORazepam 2 MG TAB PO PRN ×5 (09:57→21:18)
[2021-12-09 10:33] LABS: APPEARANCE, URINE MANUAL CLEAR (CLEAR); COLOR, URINE MANUAL DK YELLOW (YELLOW); GLUCOSE, URINE (UA) MANUAL TRACE(50 MG/DL) mg/dL (NEGATIVE); KETONE, URINE MANUAL NEGATIVE (NEGATIVE); PH,URINE MAN 5.5 UNITS (5.0 - 7.0); PROTEIN, URINE MANUAL TRACE mg/dL (NEGATIVE); SPECIFIC GRAVITY,URINE MANUAL 1.025 (1.002-1.035); UROBILINOGEN, URINE MANUAL 1 MG mg/dl (NORMAL)
[2021-12-09 10:34] LABS: BILIRUBIN, URINE MANUAL NEGATIVE (NEGATIVE); BLOOD URINE MANUAL POSITIVE (NEGATIVE); LEUKOCYTE ESTERASE, URINE MAN POSITIVE (NEGATIVE); NITRITE, URINE MANUAL NEGATIVE (NEGATIVE)
[2021-12-09 10:42] LABS: WBC, URINE 30-40 /hpf (0-3)
[2021-12-09 10:43] LABS: AMORPHOUS SEDIMENT, URINE SMALL AMOUNT (NEGATIVE); BACTERIA, URINE MOD AMOUNT; HYALINE CAST, URINE 0-1 /lpf (0-1); MUCUS, URINE MOD AMOUNT (NEGATIVE); SQUAMOUS EPITHELIAL CELL URINE SMALL AMOUNT /hpf (SMALL AMT)
[2021-12-09] MEDS: NICOTINE 21MG/24HR 1 EA TRANSDERMAL TD SCH (12:41)
[2021-12-09] MEDS: LevoFLOXacin 750 MG TABLET PO SCH (14:43)
[2021-12-09] MEDS: ENOXAPARIN 40MG/0.4ML SYRINGE (J1650 PER 10MG) SC SCH (21:17)
[2021-12-10] VITALS (42 sets, daily range): BP systolic 96–172; BP diastolic 62–113
[2021-12-10] MEDS: LORazepam 2 MG TAB PO PRN ×12 (00:50→18:07)
[2021-12-10] MEDS ORDERED: chlordiazePOXIDE 25 MG CAP PO SCH ×7 (02:10→09:00)
[2021-12-10] MEDS: LevoFLOXacin 750 MG TABLET PO SCH (04:57)
[2021-12-10] MEDS ORDERED: OXAZEPAM 15MG CAP PO SCH (06:00)
[2021-12-10 06:45] LABS: HEMATOCRIT 34.7 % (42.0-52.0); HEMOGLOBIN 11.2 g/dl (13.5-17.5); MEAN CORPUSCULAR HGB CONC 32.3 g/dl (32.0-36.5); PLATELET COUNT, AUTOMATED 209 10^3/uL (150-450); RED BLOOD COUNT 3.73 10^6/uL (4.30-6.10); WHITE BLOOD COUNT 6.7 10^3/uL (4.0-10.0)
[2021-12-10] MEDS ORDERED: LABETALOL 100MG/20ML VIAL IV PRN (07:55)
[2021-12-10] MEDS ORDERED: LORazepam 2 MG/ML VIAL IV SCH (09:00)
[2021-12-10] MEDS: NICOTINE 21MG/24HR 1 EA TRANSDERMAL TD SCH (10:34)
[2021-12-10] MEDS: THIAMINE 100 MG TAB PO SCH ×2 (10:35→19:41)
[2021-12-10] MEDS: chlordiazePOXIDE 25 MG CAP PO SCH ×4 (10:35→19:41)
[2021-12-10] MEDS: MULTIVITAMINS/MINERALS THERAP 1 TAB PO SCH (10:36)
[2021-12-10] MEDS: cloNIDine 0.1MG TABLET PO SCH ×2 (10:36→19:40)
[2021-12-10] MEDS: FOLIC ACID 1MG TAB PO SCH (10:36)
[2021-12-10 12:05] LABS: GC DNA AMPLIFICATION NEGATIVE (NEGATIVE)
[2021-12-10 12:49] LABS: CALCIUM LEVEL 9.2 MG/DL (8.8-10.2); CREATININE FOR GFR 1.51 MG/DL (0.70-1.30); GLOMERULAR FILTRATION RATE 50.1 (>49); MAGNESIUM LEVEL 1.9 MG/DL (1.8-2.4); POTASSIUM SERUM 3.6 MEQ/L (3.5-5.1)
[2021-12-10] MEDS: LR 1,000 ML IV SCH (17:23)
[2021-12-10] MEDS ORDERED: MIDAZOLAM INJ 2MG/2ML VIAL (J2250 PER 1MG) IV ONE ×2 (18:15→20:10)
[2021-12-10] MEDS: dexmedeTOMidine 200 MCG in IV 1 EA IV SCH ×4 (19:53→23:34)
[2021-12-10] MEDS: ENOXAPARIN 40MG/0.4ML SYRINGE (J1650 PER 10MG) SC SCH (20:26)
[2021-12-11] VITALS (21 sets, daily range): BP systolic 93–156; BP diastolic 50–80
[2021-12-11] MEDS: dexmedeTOMidine 200 MCG in IV 1 EA IV SCH ×3 (00:09→05:37)
[2021-12-11] MEDS: LR 1,000 ML IV SCH ×2 (03:15→15:06)
[2021-12-11 05:13] LABS: HEMATOCRIT 36.7 % (42.0-52.0); HEMOGLOBIN 11.7 g/dl (13.5-17.5); MEAN CORPUSCULAR HEMOGLOBIN 29.7 pg (27.0-33.0); MEAN CORPUSCULAR HGB CONC 31.9 g/dl (32.0-36.5); MEAN CORPUSCULAR VOLUME 93.1 fl (80.0-96.0); PLATELET COUNT, AUTOMATED 213 10^3/uL (150-450); RED BLOOD COUNT 3.94 10^6/uL (4.30-6.10); WHITE BLOOD COUNT 5.7 10^3/uL (4.0-10.0)
[2021-12-11 05:55] LABS: CREATININE FOR GFR 1.46 MG/DL (0.70-1.30); GLOMERULAR FILTRATION RATE 52.1 (>49); MAGNESIUM LEVEL 1.7 MG/DL (1.8-2.4); POTASSIUM SERUM 3.8 MEQ/L (3.5-5.1)
[2021-12-11] MEDS ORDERED: OXAZEPAM 15MG CAP PO SCH (06:00)
[2021-12-11] MEDS: MULTIVITAMINS/MINERALS THERAP 1 TAB PO SCH (09:34)
[2021-12-11] MEDS: FOLIC ACID 1MG TAB PO SCH (09:34)
[2021-12-11] MEDS: cloNIDine 0.1MG TABLET PO SCH ×2 (09:34→20:14)
[2021-12-11] MEDS: THIAMINE 100 MG TAB PO SCH (09:34)
[2021-12-11] MEDS: chlordiazePOXIDE 25 MG CAP PO SCH ×3 (09:34→20:14)
[2021-12-11] MEDS: NICOTINE 21MG/24HR 1 EA TRANSDERMAL TD SCH (09:35)
[2021-12-11] MEDS: PANTOPRAZOLE 40MG VIAL IV SCH (09:55)
[2021-12-11] MEDS ORDERED: MAG SULF 1GM/100ML (MAG RUN) 1 GM in IV 1 EA IV ONE (10:00)
[2021-12-11] MEDS ORDERED: MORPHINE 2 MG/ML 1ML VIAL IV PRN (18:25)
[2021-12-11] MEDS: ACETAMINOPHEN TAB 650MG DOSE (2X325MG) PO PRN (18:40)
[2021-12-11] MEDS: ENOXAPARIN 40MG/0.4ML SYRINGE (J1650 PER 10MG) SC SCH (20:15)
[2021-12-12] VITALS (15 sets, daily range): BP systolic 106–162; BP diastolic 53–93
[2021-12-12] MEDS: LR 1,000 ML IV SCH ×2 (01:43→11:50)
[2021-12-12 04:33] LABS: HEMATOCRIT 34.6 % (42.0-52.0); HEMOGLOBIN 10.8 g/dl (13.5-17.5); MEAN CORPUSCULAR HEMOGLOBIN 30.4 pg (27.0-33.0); MEAN CORPUSCULAR HGB CONC 31.2 g/dl (32.0-36.5); MEAN CORPUSCULAR VOLUME 97.5 fl (80.0-96.0); PLATELET COUNT, AUTOMATED 221 10^3/uL (150-450); RED BLOOD COUNT 3.55 10^6/uL (4.30-6.10); WHITE BLOOD COUNT 4.8 10^3/uL (4.0-10.0)
[2021-12-12 05:05] LABS: CALCIUM LEVEL 8.5 MG/DL (8.8-10.2); CREATININE FOR GFR 1.34 MG/DL (0.70-1.30); GLOMERULAR FILTRATION RATE 57.5 (>49); MAGNESIUM LEVEL 1.9 MG/DL (1.8-2.4); POTASSIUM SERUM 3.5 MEQ/L (3.5-5.1)
[2021-12-12] MEDS: chlordiazePOXIDE 25 MG CAP PO SCH ×2 (08:55→20:07)
[2021-12-12] MEDS: PANTOPRAZOLE 40MG VIAL IV SCH (08:56)
[2021-12-12] MEDS: FOLIC ACID 1MG TAB PO SCH (08:56)
[2021-12-12] MEDS: MULTIVITAMINS/MINERALS THERAP 1 TAB PO SCH (08:56)
[2021-12-12] MEDS: cloNIDine 0.1MG TABLET PO SCH ×2 (08:56→20:13)
[2021-12-12] MEDS: NICOTINE 21MG/24HR 1 EA TRANSDERMAL TD SCH (08:57)
[2021-12-12] MEDS: ACETAMINOPHEN TAB 650MG DOSE (2X325MG) PO PRN (10:15)
[2021-12-12] MEDS: THIAMINE 100 MG TAB PO SCH (14:27)
[2021-12-12] MEDS: ENOXAPARIN 40MG/0.4ML SYRINGE (J1650 PER 10MG) SC SCH (20:07)
[2021-12-12] MEDS: PERCOCET 5MG/325MG TAB PO PRN (20:13)
[2021-12-13] VITALS: BP 110/58
[2021-12-13 04:00] VITALS: BP 158/72
[2021-12-13 05:02] LABS: HEMATOCRIT 33.9 % (42.0-52.0); HEMOGLOBIN 10.8 g/dl (13.5-17.5); MEAN CORPUSCULAR HEMOGLOBIN 29.9 pg (27.0-33.0); MEAN CORPUSCULAR HGB CONC 31.9 g/dl (32.0-36.5); MEAN CORPUSCULAR VOLUME 93.9 fl (80.0-96.0); PLATELET COUNT, AUTOMATED 247 10^3/uL (150-450); RED BLOOD COUNT 3.61 10^6/uL (4.30-6.10); WHITE BLOOD COUNT 4.8 10^3/uL (4.0-10.0)
[2021-12-13 05:39] LABS: CALCIUM LEVEL 8.5 MG/DL (8.8-10.2); CREATININE FOR GFR 1.35 MG/DL (0.70-1.30); MAGNESIUM LEVEL 1.8 MG/DL (1.8-2.4); POTASSIUM SERUM 3.9 MEQ/L (3.5-5.1)
[2021-12-13 08:00] VITALS: BP 132/64
[2021-12-13] MEDS: cloNIDine 0.1MG TABLET PO SCH ×2 (09:55→21:17)
[2021-12-13] MEDS: NICOTINE 21MG/24HR 1 EA TRANSDERMAL TD SCH (09:55)
[2021-12-13] MEDS: MULTIVITAMINS/MINERALS THERAP 1 TAB PO SCH (09:55)
[2021-12-13] MEDS: THIAMINE 100 MG TAB PO SCH (09:55)
[2021-12-13] MEDS: FOLIC ACID 1MG TAB PO SCH (09:55)
[2021-12-13] MEDS: OMEPRAZOLE 20MG CAP PO SCH (09:55)
[2021-12-13] MEDS: PERCOCET 5MG/325MG TAB PO PRN (10:18)
[2021-12-13] MEDS: chlordiazePOXIDE 25 MG CAP PO SCH (10:26)
[2021-12-13] MEDS ORDERED: NICOTINE POLACRILEX 2 MG GUM PO ONE (20:05)
[2021-12-13] MEDS: ENOXAPARIN 40MG/0.4ML SYRINGE (J1650 PER 10MG) SC SCH (21:15)
[2021-12-14 06:00] VITALS: BP 131/66
[2021-12-14 06:02] LABS: HEMATOCRIT 31.6 % (42.0-52.0); HEMOGLOBIN 10.2 g/dl (13.5-17.5); MEAN CORPUSCULAR HEMOGLOBIN 30.5 pg (27.0-33.0); MEAN CORPUSCULAR HGB CONC 32.3 g/dl (32.0-36.5); MEAN CORPUSCULAR VOLUME 94.6 fl (80.0-96.0); PLATELET COUNT, AUTOMATED 276 10^3/uL (150-450); RED BLOOD COUNT 3.34 10^6/uL (4.30-6.10); WHITE BLOOD COUNT 5.9 10^3/uL (4.0-10.0)
[2021-12-14 06:28] LABS: CALCIUM LEVEL 8.5 MG/DL (8.8-10.2); CREATININE FOR GFR 1.49 MG/DL (0.70-1.30); GLOMERULAR FILTRATION RATE 50.9 (>49); MAGNESIUM LEVEL 1.7 MG/DL (1.8-2.4)
[2021-12-14] MEDS: NICOTINE 21MG/24HR 1 EA TRANSDERMAL TD SCH (08:46)
[2021-12-14] MEDS: THIAMINE 100 MG TAB PO SCH (08:46)
[2021-12-14] MEDS: FOLIC ACID 1MG TAB PO SCH (08:46)
[2021-12-14] MEDS: MULTIVITAMINS/MINERALS THERAP 1 TAB PO SCH (08:46)
[2021-12-14 08:47] VITALS: BP 139/76
[2021-12-14] MEDS: cloNIDine 0.1MG TABLET PO SCH (08:47)
[2021-12-14] MEDS: OMEPRAZOLE 20MG CAP PO SCH (08:47)
[2021-12-14] MEDS ORDERED: MAG SULF 1GM/100ML (MAG RUN) 1 GM in IV 1 EA IV ONE (09:00)
[2021-12-14] MEDS: PERCOCET 5MG/325MG TAB PO PRN (09:35)
[2021-12-14] MEDS ORDERED: FOLI1TAB11 PO (11:14)
[2021-12-14] MEDS ORDERED: VITMTA PO (11:14)
[2021-12-14] MEDS ORDERED: THIA100TA PO (11:14)
[2021-12-14] MEDS ORDERED: OMEP-173 PO (11:14)
[2021-12-14] MEDS ORDERED: PERCOCET PO (11:14)
== END 2021-12-14 12:58 | disposition home or self-care (01) | DRG 135 ==
LOC: EDBD 18:20 → M ED 18:20 → M ED INP 18:21 → M MS5PR 12-08 02:46 → OBSVTOIN 12-09 14:49 → M ICU 12-10 09:55 → M PCU 12-12 21:18 → M MSPAV 12-13 13:31
PROVIDERS: ADMIT Internal Medicine; ATTEND Internal Medicine
DX: S22.42XA Multiple fractures of ribs, left side, initial encounter for closed fracture (principal); G92.9 Unspecified toxic encephalopathy; G93.41 Metabolic encephalopathy; N17.9 Acute kidney failure, unspecified; F10.231 Alcohol dependence with withdrawal delirium; N18.30 Chronic kidney disease, stage 3 unspecified; E87.1 Hypo-osmolality and hyponatremia; E83.42 Hypomagnesemia; S81.001A Unspecified open wound, right knee, initial encounter; I12.9 Hypertensive chronic kidney disease with stage 1 through stage 4 chronic kidney disease, or unspecified chronic kidney disease; I16.0 Hypertensive urgency; S01.511A Laceration without foreign body of lip, initial encounter; F17.200 Nicotine dependence, unspecified, uncomplicated; D53.9 Nutritional anemia, unspecified; R29.6 Repeated falls; Z79.899 Other long term (current) drug therapy; I77.819 Aortic ectasia, unspecified site; W18.30XA Fall on same level, unspecified, initial encounter; Y92.413 State road as the place of occurrence of the external cause

== ENCOUNTER 2021-12-17 21:36 | Emergency (ER) | payer OTHER ==
[~2021-12-17] VITALS: Ht 177.8 cm; Wt 81.8 kg
[~2021-12-17 21:36] MED LIST changes: +AMLO1TAB25 PO; +MED REC COMMENT; +PERCOCET PO; +THERTAB52 PO
[2021-12-17 22:07] LABS: BASO # 0.1 10^3/uL (0.0-0.2); BASO % 1.2 % (0.0-1.0); EOS # 0.2 10^3/uL (0.0-0.5); EOS % 3.1 % (0.0-3.0); HEMATOCRIT 32.3 % (42.0-52.0); HEMOGLOBIN 10.3 g/dl (13.5-17.5); LYMPH # 1.7 10^3/uL (1.5-5.0); LYMPH % 26.8 % (24.0-44.0); MEAN CORPUSCULAR HEMOGLOBIN 30.1 pg (27.0-33.0); MEAN CORPUSCULAR HGB CONC 31.9 g/dl (32.0-36.5); MEAN CORPUSCULAR VOLUME 94.4 fl (80.0-96.0); MONO # 0.7 10^3/uL (0.0-0.8); NEUTROPHILS # 3.7 10^3/uL (1.5-8.5); NEUTROPHILS % 57.7 % (36.0-66.0); PLATELET COUNT, AUTOMATED 364 10^3/uL (150-450); RED BLOOD COUNT 3.42 10^6/uL (4.30-6.10); WHITE BLOOD COUNT 6.5 10^3/uL (4.0-10.0)
[2021-12-17 22:50] LABS: CREATININE FOR GFR 1.49 MG/DL (0.70-1.30); GLOMERULAR FILTRATION RATE 50.9 (>49); POTASSIUM SERUM 4.2 MEQ/L (3.5-5.1)
[2021-12-17 22:51] LABS: CALCIUM LEVEL 8.8 MG/DL (8.8-10.2); ETHYL ALCOHOL (ETHANOL) 0.239 % (0.000-0.010)
[2021-12-17] MEDS ORDERED: NS 500 ML IV ONE (22:55)
[2021-12-18] MEDS ORDERED: ACETAMINOPHEN TAB 650MG DOSE (2X325MG) PO PRN (04:20)
[2021-12-18] MEDS ORDERED: LORazepam 2 MG TAB PO PRN (04:20)
[2021-12-18] MEDS ORDERED: MULTIVITAMIN -ADULT INJECTION 10 ML, THIAMINE INJection 100 MG, FOLIC ACID 1 MG in NS 1... IV ONE (05:00)
[2021-12-18 05:05] VITALS: BP 140/87
[2021-12-18] MEDS ORDERED: ENOXAPARIN 40MG/0.4ML SYRINGE (J1650 PER 10MG) SC SCH (09:00)
[2021-12-19] MEDS ORDERED: THIAMINE 100 MG TAB PO SCH (09:00)
[2021-12-19] MEDS ORDERED: FOLIC ACID 1MG TAB PO SCH (09:00)
[2021-12-19] MEDS ORDERED: MULTIVITAMINS/MINERALS THERAP 1 TAB PO SCH (09:00)
== END 2021-12-18 05:33 | disposition home or self-care (01) ==
LOC: EDBD 21:36 → M ED 21:36 → UNDOADMOB 21:38 → M ED INP 21:38 → M ED 12-18 05:33
DX: F10.129 Alcohol abuse with intoxication, unspecified (principal); S22.42XA Multiple fractures of ribs, left side, initial encounter for closed fracture; W01.0XXA Fall on same level from slipping, tripping and stumbling without subsequent striking against object, initial encounter; I45.10 Unspecified right bundle-branch block; I10 Essential (primary) hypertension; Y92.410 Unspecified street and highway as the place of occurrence of the external cause; Z79.899 Other long term (current) drug therapy; Y93.9 Activity, unspecified; Y99.9 Unspecified external cause status

== ENCOUNTER 2021-12-25 00:29 | Emergency (ER) | payer OTHER ==
[~2021-12-25] VITALS: Ht 177.8 cm; Wt 88.5 kg
[2021-12-25] MEDS ORDERED: LORazepam 2 MG TAB PO PRN (00:45)
[2021-12-25 01:30] LABS: BASO # 0.1 10^3/uL (0.0-0.2); BASO % 1.1 % (0.0-1.0); EOS # 0.3 10^3/uL (0.0-0.5); EOS % 4.4 % (0.0-3.0); HEMOGLOBIN 11.7 g/dl (13.5-17.5); LYMPH # 1.9 10^3/uL (1.5-5.0); LYMPH % 25.9 % (24.0-44.0); MEAN CORPUSCULAR HEMOGLOBIN 29.8 pg (27.0-33.0); MEAN CORPUSCULAR HGB CONC 31.6 g/dl (32.0-36.5); MEAN CORPUSCULAR VOLUME 94.4 fl (80.0-96.0); MONO # 0.6 10^3/uL (0.0-0.8); NEUTROPHILS # 4.4 10^3/uL (1.5-8.5); NEUTROPHILS % 60.5 % (36.0-66.0); PLATELET COUNT, AUTOMATED 384 10^3/uL (150-450); RED BLOOD COUNT 3.92 10^6/uL (4.30-6.10); WHITE BLOOD COUNT 7.3 10^3/uL (4.0-10.0)
[2021-12-25] MEDS ORDERED: NS 1,000 ML IV ONE (01:40)
[2021-12-25 02:00] LABS: MB/CK RELATIVE INDEX 1.57 (< OR =4)
[2021-12-25 02:17] LABS: ACETAMINOPHEN LEVEL < 2.0 UG/ML (10.0-30.0); ALBUMIN 3.6 GM/DL (3.2-5.2); ALT/SGPT 35 U/L (12-78); BILIRUBIN,DIRECT 0.2 MG/DL (0.0-0.2); BILIRUBIN,TOTAL 0.4 MG/DL (0.2-1.0); BLOOD UREA NITROGEN 9 MG/DL (7-18); CALCIUM LEVEL 8.8 MG/DL (8.8-10.2); CARBON DIOXIDE LEVEL 22 MEQ/L (21-32); CHLORIDE LEVEL 106 MEQ/L (98-107); CREATININE FOR GFR 1.17 MG/DL (0.70-1.30); ETHYL ALCOHOL (ETHANOL) 0.267 % (0.000-0.010); GLOMERULAR FILTRATION RATE > 60.0 (>49); GLUCOSE, FASTING 114 MG/DL (70-100); POTASSIUM SERUM 3.6 MEQ/L (3.5-5.1); SALICYLATE LEVEL < 1.7 MG/DL (5.0-30.0); SODIUM LEVEL 137 MEQ/L (136-145); TOTAL PROTEIN 8.4 GM/DL (6.4-8.2)
[2021-12-25] MEDS ORDERED: ETOMIDATE INJ 20MG/10ML VIAL IV ONE (02:40)
[2021-12-25] MEDS ORDERED: propofoL 1,000 MG in IV 1 EA IV SCH (02:40)
[2021-12-25] MEDS ORDERED: ROCURONIUM BROMIDE 50 MG/5 ML VIAL IV ONE (02:40)
[2021-12-25] MEDS ORDERED: levETIRAcetam INJection 1,000 MG in D5W 100 ML IV ONE (02:45)
[2021-12-25 03:49] LABS: AMPHETAMINES LEVEL URINE NEGATIVE (NEGATIVE); BARBITURATES URINE NEGATIVE (NEGATIVE); BENZODIAZEPINES URINE POSITIVE (NEGATIVE); CANNABINOIDS URINE NEGATIVE (NEGATIVE); COCAINE METABOLITE URINE NEGATIVE (NEGATIVE); METHADONE URINE NEGATIVE (NEGATIVE); OPIATES URINE NEGATIVE (NEGATIVE); PHENCYCLIDINE URINE NEGATIVE (NEGATIVE)
[2021-12-25 03:57] LABS: RSV AMPLIFICATION NEGATIVE (NEGATIVE)
[2021-12-25 04:15] VITALS: BP 178/89
[2021-12-25] MEDS ORDERED: THIAMINE 100 MG TAB PO SCH (09:00)
[2021-12-25] MEDS ORDERED: FOLIC ACID 1MG TAB PO SCH (09:00)
[2021-12-25] MEDS ORDERED: MULTIVITAMINS/MINERALS THERAP 1 TAB PO SCH (09:00)
== END 2021-12-25 04:32 | disposition short-term general hospital (02) ==
LOC: EDBD 00:29 → M ED 00:29
DX: S06.5X0A Traumatic subdural hemorrhage without loss of consciousness, initial encounter (principal); F10.129 Alcohol abuse with intoxication, unspecified; I45.10 Unspecified right bundle-branch block; F17.200 Nicotine dependence, unspecified, uncomplicated; I10 Essential (primary) hypertension; Z79.810 Long term (current) use of selective estrogen receptor modulators (SERMs); Z79.899 Other long term (current) drug therapy
CPT/HCPCS: 51702; 70450; 71045; 72125; 80048; 80076; 80143; 80307; 82077; 82140; 82550; 82553; 83605; 84443; 85025; 87631; 93005; 93041; 94760; 96361; 96365; 99291; 99292; J1953

== ENCOUNTER 2021-12-28 15:14 | Emergency (ER) | payer OTHER ==
[~2021-12-28] VITALS: Ht 177.8 cm; Wt 80.9 kg
[2021-12-28 17:16] LABS: HEMATOCRIT 36.5 % (42.0-52.0); MEAN CORPUSCULAR HEMOGLOBIN 30.2 pg (27.0-33.0); MEAN CORPUSCULAR HGB CONC 32.9 g/dl (32.0-36.5); MEAN CORPUSCULAR VOLUME 91.7 fl (80.0-96.0); PLATELET COUNT, AUTOMATED 333 10^3/uL (150-450); RED BLOOD COUNT 3.98 10^6/uL (4.30-6.10); WHITE BLOOD COUNT 9.5 10^3/uL (4.0-10.0)
[2021-12-28 17:36] LABS: INR 1.05; PROTHROMBIN TIME 14.1 SECONDS (12.7-14.5)
[2021-12-28 17:45] LABS: BLOOD UREA NITROGEN 7 MG/DL (7-18); CALCIUM LEVEL 9.3 MG/DL (8.8-10.2); CARBON DIOXIDE LEVEL 22 MEQ/L (21-32); CHLORIDE LEVEL 106 MEQ/L (98-107); CREATININE FOR GFR 1.27 MG/DL (0.70-1.30); ETHYL ALCOHOL (ETHANOL) 0.146 % (0.000-0.010); GLOMERULAR FILTRATION RATE > 60.0 (>49); GLUCOSE, FASTING 91 MG/DL (70-100); POTASSIUM SERUM 3.9 MEQ/L (3.5-5.1); SODIUM LEVEL 139 MEQ/L (136-145)
[2021-12-28 17:50] LABS: RSV AMPLIFICATION NEGATIVE (NEGATIVE)
[2021-12-28 18:24] VITALS: BP 162/87
== END 2021-12-28 18:28 | disposition home or self-care (01) ==
LOC: M ED 15:14
DX: S06.5X0A Traumatic subdural hemorrhage without loss of consciousness, initial encounter (principal); F10.120 Alcohol abuse with intoxication, uncomplicated; I10 Essential (primary) hypertension; N18.30 Chronic kidney disease, stage 3 unspecified; F17.200 Nicotine dependence, unspecified, uncomplicated; Z79.899 Other long term (current) drug therapy; Z79.810 Long term (current) use of selective estrogen receptor modulators (SERMs); Y93.9 Activity, unspecified; Y92.9 Unspecified place or not applicable

== ENCOUNTER 2022-01-10 02:30 | Emergency (ER) | payer OTHER ==
[2022-01-10] MEDS ORDERED: NS 1,000 ML IV ONE (02:40)
[2022-01-10 03:44] LABS: BASO % 0.9 % (0.0-1.0); EOS # 0.1 10^3/uL (0.0-0.5); HEMATOCRIT 38.9 % (42.0-52.0); HEMOGLOBIN 12.9 g/dl (13.5-17.5); LYMPH # 1.1 10^3/uL (1.5-5.0); LYMPH % 25.1 % (24.0-44.0); MEAN CORPUSCULAR HEMOGLOBIN 29.1 pg (27.0-33.0); MEAN CORPUSCULAR HGB CONC 33.2 g/dl (32.0-36.5); MEAN CORPUSCULAR VOLUME 87.8 fl (80.0-96.0); MONO # 0.4 10^3/uL (0.0-0.8); MONO % 7.8 % (2.0-8.0); NEUTROPHILS # 2.9 10^3/uL (1.5-8.5); PLATELET COUNT, AUTOMATED 221 10^3/uL (150-450); RED BLOOD COUNT 4.43 10^6/uL (4.30-6.10); WHITE BLOOD COUNT 4.5 10^3/uL (4.0-10.0)
[2022-01-10 03:54] LABS: APPEARANCE, URINE MANUAL CLEAR (CLEAR); COLOR, URINE MANUAL YELLOW (YELLOW)
[2022-01-10 03:55] LABS: BILIRUBIN, URINE MANUAL NEGATIVE (NEGATIVE); BLOOD URINE MANUAL NEGATIVE (NEGATIVE); GLUCOSE, URINE (UA) MANUAL NEGATIVE (NEGATIVE); KETONE, URINE MANUAL NEGATIVE (NEGATIVE); LEUKOCYTE ESTERASE, URINE MAN NEGATIVE (NEGATIVE); NITRITE, URINE MANUAL NEGATIVE (NEGATIVE); PROTEIN, URINE MANUAL NEGATIVE (NEGATIVE); UROBILINOGEN, URINE MANUAL NORMAL (NORMAL)
[2022-01-10 04:04] LABS: PARTIAL THROMBOPLASTIN TIME 33.1 SECONDS (25.9-37.0); PROTHROMBIN TIME 13.6 SECONDS (12.7-14.5)
[2022-01-10 04:23] LABS: MB/CK RELATIVE INDEX 1.86 (< OR =4)
[2022-01-10 04:29] VITALS: BP 129/68
[2022-01-10 04:29] LABS: AMPHETAMINES LEVEL URINE NEGATIVE (NEGATIVE); BARBITURATES URINE NEGATIVE (NEGATIVE); BENZODIAZEPINES URINE POSITIVE (NEGATIVE); CANNABINOIDS URINE NEGATIVE (NEGATIVE); COCAINE METABOLITE URINE NEGATIVE (NEGATIVE); METHADONE URINE NEGATIVE (NEGATIVE); OPIATES URINE NEGATIVE (NEGATIVE); PHENCYCLIDINE URINE NEGATIVE (NEGATIVE)
[2022-01-10 04:44] LABS: ALBUMIN 3.5 GM/DL (3.2-5.2); ALT/SGPT 31 U/L (12-78); AMYLASE 56 U/L (25-115); BILIRUBIN,DIRECT 0.2 MG/DL (0.0-0.2); BILIRUBIN,TOTAL 0.5 MG/DL (0.2-1.0); BLOOD UREA NITROGEN 8 MG/DL (7-18); CALCIUM LEVEL 8.8 MG/DL (8.8-10.2); CARBON DIOXIDE LEVEL 24 MEQ/L (21-32); CHLORIDE LEVEL 95 MEQ/L (98-107); CREATININE FOR GFR 0.95 MG/DL (0.70-1.30); ETHYL ALCOHOL (ETHANOL) 0.357 % (0.000-0.010); GLOMERULAR FILTRATION RATE > 60.0 (>49); GLUCOSE, FASTING 123 MG/DL (70-100); LIPASE 515 U/L (73-393); SODIUM LEVEL 129 MEQ/L (136-145); TOTAL PROTEIN 8.1 GM/DL (6.4-8.2)
[2022-01-10] MEDS ORDERED: POTASSIUM CHLORIDE 10% LIQ 20 MEQ/15 ML UDC PO ONE (05:20)
[2022-01-10 06:17] LABS: RSV AMPLIFICATION NEGATIVE (NEGATIVE)
== END 2022-01-10 06:59 | disposition short-term general hospital (02) ==
LOC: M ED 02:30 → EDBD 02:30 → M ED 06:59
DX: I62.00 Nontraumatic subdural hemorrhage, unspecified (principal); S00.03XA Contusion of scalp, initial encounter; F10.288 Alcohol dependence with other alcohol-induced disorder; I45.10 Unspecified right bundle-branch block; I10 Essential (primary) hypertension; F41.9 Anxiety disorder, unspecified; Y92.410 Unspecified street and highway as the place of occurrence of the external cause; Y93.9 Activity, unspecified; Y99.9 Unspecified external cause status; Z79.899 Other long term (current) drug therapy

== ENCOUNTER 2022-01-29 22:07 | Emergency (ER) | payer OTHER ==
[~2022-01-29] VITALS: Ht 170.2 cm; Wt 72.3 kg
[2022-01-29 22:19] VITALS: BP 158/75
== END 2022-01-30 01:43 | disposition left against medical advice (07) ==
LOC: M ED 22:07
DX: Z53.21 Procedure and treatment not carried out due to patient leaving prior to being seen by health care provider (principal)

== ENCOUNTER → 2022-02-13 | Outpatient (REF) | payer OTHER, MEDICAID ==
[2022-02-13 18:17] LABS: MALB URINE SIEMENS 60.3 MG/L; MAU/CREAT RATIO 21.6 MCG/MG (0.0-30.0)
== END ==
LOC: M LAB REF 16:36
PROVIDERS: ATTEND Nurse Practitioner Family
DX: E11.9 Type 2 diabetes mellitus without complications (principal)

== ENCOUNTER → 2022-08-01 | Outpatient (REF) | payer OTHER, MEDICAID ==
[2022-08-01 19:11] LABS: HEMOGLOBIN A1c 5.5 % (4.0-6.0)
[2022-08-01 19:34] LABS: BLOOD UREA NITROGEN 12 MG/DL (9-23); CALCIUM LEVEL 9.2 MG/DL (8.3-10.6); CARBON DIOXIDE LEVEL 24 MMOL/L (20-31); CHLORIDE LEVEL 99 MMOL/L (98-107); CREATININE FOR GFR 1.25 MG/DL (0.70-1.30); GLOMERULAR FILTRATION RATE > 60.0 (>49); GLUCOSE, FASTING 117 MG/DL (74-106); POTASSIUM SERUM 4.3 MMOL/L (3.5-5.1); SODIUM LEVEL 132 MMOL/L (136-145)
[2022-08-01 19:59] LABS: HIV 1&2 SCREEN CENTAUR NEGATIVE (NEGATIVE)
== END ==
LOC: M LAB REF 17:11
PROVIDERS: ATTEND Nurse Practitioner Family
DX: E11.9 Type 2 diabetes mellitus without complications (principal); Z11.9 Encounter for screening for infectious and parasitic diseases, unspecified

== ENCOUNTER 2022-08-14 18:34 | Emergency (ER) | payer MEDICAID, OTHER ==
[~2022-08-14] VITALS: Ht 177.8 cm; Wt 180.0 kg
[2022-08-14] MEDS ORDERED: cloNIDine 0.1MG TABLET PO ONE (19:00)
[2022-08-14] MEDS ORDERED: HOME MED LIST COMPLETE! XX SCH (19:15)
[2022-08-14 19:17] VITALS: BP 228/101
[2022-08-14 20:17] LABS: AMPHETAMINES LEVEL URINE NEGATIVE (NEGATIVE); BARBITURATES URINE NEGATIVE (NEGATIVE); BENZODIAZEPINES URINE NEGATIVE (NEGATIVE); CANNABINOIDS URINE NEGATIVE (NEGATIVE); COCAINE METABOLITE URINE NEGATIVE (NEGATIVE); METHADONE URINE NEGATIVE (NEGATIVE); OPIATES URINE NEGATIVE (NEGATIVE); PHENCYCLIDINE URINE NEGATIVE (NEGATIVE)
[2022-08-14 20:44] LABS: BASO # 0.1 10^3/uL (0.0-0.2); BASO % 0.9 % (0.0-1.0); EOS # 0.1 10^3/uL (0.0-0.5); EOS % 1.9 % (0.0-3.0); HEMATOCRIT 36.9 % (42.0-52.0); HEMOGLOBIN 12.2 g/dl (13.5-17.5); LYMPH # 1.8 10^3/uL (1.5-5.0); LYMPH % 26.6 % (24.0-44.0); MEAN CORPUSCULAR HGB CONC 33.1 g/dl (32.0-36.5); MEAN CORPUSCULAR VOLUME 90.9 fl (80.0-96.0); MONO # 0.4 10^3/uL (0.0-0.8); MONO % 5.6 % (2.0-8.0); NEUTROPHILS # 4.4 10^3/uL (1.5-8.5); NEUTROPHILS % 64.6 % (36.0-66.0); PLATELET COUNT, AUTOMATED 287 10^3/uL (150-450); RED BLOOD COUNT 4.06 10^6/uL (4.30-6.10); WHITE BLOOD COUNT 6.8 10^3/uL (4.0-10.0)
[2022-08-14] MEDS ORDERED: THIAMINE 100 MG TAB PO SCH (21:00)
[2022-08-14 21:26] LABS: ETHYL ALCOHOL (ETHANOL) 0.292 % (0.000-0.010); LIPASE 48 U/L (12-53)
[2022-08-14 21:28] LABS: ACETAMINOPHEN LEVEL < 2.0 UG/ML (10.0-20.0); ALBUMIN 3.2 G/DL (3.2-5.2); ALKALINE PHOSPHATASE 79 U/L (46-116); ALT/SGPT 16 U/L (7.0-40); AST/SGOT 24 U/L (<34); BILIRUBIN,DIRECT 0.2 MG/DL (<0.4); BILIRUBIN,TOTAL 0.5 MG/DL (0.3-1.2); BLOOD UREA NITROGEN 9 MG/DL (9-23); CALCIUM LEVEL 8.3 MG/DL (8.3-10.6); CARBON DIOXIDE LEVEL 25 MMOL/L (20-31); CHLORIDE LEVEL 102 MMOL/L (98-107); CREATININE FOR GFR 1.16 MG/DL (0.70-1.30); GLOMERULAR FILTRATION RATE > 60.0 (>49); GLUCOSE, FASTING 93 MG/DL (74-106); POTASSIUM SERUM 3.1 MMOL/L (3.5-5.1); SALICYLATE LEVEL < 3.0 MG/DL (<30); SODIUM LEVEL 138 MMOL/L (136-145); TOTAL PROTEIN 7.2 G/DL (5.7-8.2)
[2022-08-14 21:30] LABS: FREE T4 0.92 NG/DL (0.89-1.76); THYROID STIMULATING HORMONE 2.339 uIU/ML (0.55-4.78)
[2022-08-14] MEDS ORDERED: LORazepam 2 MG TAB PO PRN (21:35)
[2022-08-14 22:30] VITALS: BP 153/73
[2022-08-15] MEDS ORDERED: MULTIVITAMINS/MINERALS THERAP 1 TAB PO SCH (09:00)
[2022-08-15] MEDS ORDERED: FOLIC ACID 1MG TAB PO SCH (09:00)
== END 2022-08-14 23:16 | disposition home or self-care (01) ==
LOC: EDBD 18:34 → M ED 18:34
DX: F10.129 Alcohol abuse with intoxication, unspecified (principal); B88.8 Other specified infestations; I10 Essential (primary) hypertension; F41.9 Anxiety disorder, unspecified; Z79.899 Other long term (current) drug therapy; Z86.73 Personal history of transient ischemic attack (TIA), and cerebral infarction without residual deficits

== ENCOUNTER 2022-08-16 18:05 | Inpatient (IN) | payer OTHER ==
[~2022-08-16] VITALS: Ht 177.8 cm; Wt 88.6 kg
[2022-08-16 19:23] LABS: BASO # 0.1 10^3/uL (0.0-0.2); BASO % 0.7 % (0.0-1.0); EOS # 0.2 10^3/uL (0.0-0.5); EOS % 1.7 % (0.0-3.0); HEMATOCRIT 32.7 % (42.0-52.0); HEMOGLOBIN 10.8 g/dl (13.5-17.5); LYMPH # 2.4 10^3/uL (1.5-5.0); LYMPH % 27.4 % (24.0-44.0); MEAN CORPUSCULAR HEMOGLOBIN 29.9 pg (27.0-33.0); MEAN CORPUSCULAR VOLUME 90.6 fl (80.0-96.0); MONO # 0.8 10^3/uL (0.0-0.8); MONO % 8.9 % (2.0-8.0); NEUTROPHILS # 5.2 10^3/uL (1.5-8.5); NEUTROPHILS % 60.8 % (36.0-66.0); PLATELET COUNT, AUTOMATED 313 10^3/uL (150-450); RED BLOOD COUNT 3.61 10^6/uL (4.30-6.10); WHITE BLOOD COUNT 8.6 10^3/uL (4.0-10.0)
[2022-08-16] MEDS ORDERED: cefTRIAXone SOD 2 GM in D5W MINI-BAG PLUS 50 ML IV ONE (19:35)
[2022-08-16] MEDS ORDERED: NS 2,450 ML in IV 1 EA IV ONE (19:35)
[2022-08-16 19:38] LABS: INR 0.97; PROTHROMBIN TIME 13.1 SECONDS (12.5-14.5)
[2022-08-16 19:41] LABS: CK-MB VALUE MASS 4.1 NG/ML (<3.6)
[2022-08-16 19:42] LABS: MB/CK RELATIVE INDEX 2.05 (< OR =4)
[2022-08-16 19:47] LABS: CALCIUM LEVEL 8.3 MG/DL (8.3-10.6); CREATININE FOR GFR 2.44 MG/DL (0.70-1.30); GLOMERULAR FILTRATION RATE 28.7 (>49); POTASSIUM SERUM 3.8 MMOL/L (3.5-5.1)
[2022-08-16 19:50] LABS: VENOUS BASE EXCESS -6.8 (-2.0-2.0); VENOUS HCO3 17.4 MEQ/L (23.0-27.0); VENOUS O2 SATURATION 98.3 % (60.0-80.0); VENOUS PARTIAL PRESSURE CO2 30.6 mmHg (38.0-50.0); VENOUS PARTIAL PRESSURE O2 124.4 mmHg (30.0-50.0); VENOUS PH 7.373 UNITS (7.330-7.430); VENOUS STANDARD HCO3 18.9 MEQ/L; VENOUS TOTAL CO2 18.4 MEQ/L (24.0-28.0)
[2022-08-16 20:42] LABS: ETHYL ALCOHOL (ETHANOL) 0.225 % (0.000-0.010)
[2022-08-16 20:46] LABS: APPEARANCE, URINE CLEAR (CLEAR); BACTERIA, URINE AUTO 1+ (NEGATIVE); BILIRUBIN, URINE AUTO NEGATIVE (NEGATIVE); BLOOD, URINE BLOOD NEGATIVE (NEGATIVE); COLOR, URINE YELLOW (YELLOW); GLUCOSE, URINE (UA) AUTO NEGATIVE (NEGATIVE); KETONE, URINE AUTO NEGATIVE (NEGATIVE); LEUKOCYTE ESTERASE, URINE AUTO NEGATIVE (NEGATIVE); MUCUS, URINE SMALL (NEGATIVE); NITRITE, URINE AUTO NEGATIVE (NEGATIVE); PROTEIN, URINE AUTO NEGATIVE (NEGATIVE); RBC, URINE AUTO 1 /HPF (0-3); SPECIFIC GRAVITY URINE AUTO 1.008 (1.002-1.035); SQUAMOUS EPITHELIAL CELL UR AU 2 /HPF (0-6); UROBILINOGEN, URINE AUTO 0.2 mg/dL (0.0-2.0); WBC, URINE AUTO 1 /HPF (0-3)
[2022-08-16 20:47] LABS: THYROID STIMULATING HORMONE 2.835 uIU/ML (0.55-4.78)
[2022-08-16 20:49] LABS: ALBUMIN 2.8 G/DL (3.2-5.2); BILIRUBIN,DIRECT 0.1 MG/DL (<0.4); BILIRUBIN,TOTAL 0.4 MG/DL (0.3-1.2); TOTAL PROTEIN 6.3 G/DL (5.7-8.2)
[2022-08-16 20:51] LABS: RSV AMPLIFICATION NEGATIVE (NEGATIVE)
[2022-08-16 21:07] LABS: AMPHETAMINES LEVEL URINE NEGATIVE (NEGATIVE); BARBITURATES URINE NEGATIVE (NEGATIVE); BENZODIAZEPINES URINE NEGATIVE (NEGATIVE); COCAINE METABOLITE URINE NEGATIVE (NEGATIVE)
[2022-08-16 21:08] LABS: CANNABINOIDS URINE NEGATIVE (NEGATIVE); METHADONE URINE NEGATIVE (NEGATIVE); OPIATES URINE NEGATIVE (NEGATIVE); PHENCYCLIDINE URINE NEGATIVE (NEGATIVE)
[2022-08-16] MEDS ORDERED: ACETAMINOPHEN TAB 650MG DOSE (2X325MG) PO PRN (23:10)
[2022-08-16] MEDS ORDERED: LORazepam 2 MG TAB PO PRN (23:10)
[2022-08-16] MEDS ORDERED: LR 1,000 ML IV SCH (23:10)
[2022-08-16 23:42] LABS: TOTAL PROTEIN,RANDOM URINE 20.5 MG/DL (0.0-14.0)
[2022-08-16 23:47] LABS: CREATININE,RANDOM URINE 81.6 MG/DL
[2022-08-16] MEDS: THIAMINE 100 MG TAB PO SCH (23:48)
[2022-08-17] VITALS (11 sets, daily range): BP systolic 126–176; BP diastolic 62–90
[2022-08-17] MEDS ORDERED: AMLO1TAB25 PO (00:24)
[2022-08-17] MEDS ORDERED: LISI20TA33 PO (00:24)
[2022-08-17] MEDS ORDERED: MED REC COMMENT (00:24)
[2022-08-17] MEDS ORDERED: NICO2GUM46 PO (00:24)
[2022-08-17] MEDS ORDERED: ATOR80TA59 PO (00:24)
[2022-08-17] MEDS ORDERED: HOME MED LIST COMPLETE! XX SCH (00:25)
[2022-08-17] MEDS: HEPARIN SOD (PORCINE) 5000UNITS/ML 1ML VIAL/SYRINGE SQ SCH ×3 (05:32→22:11)
[2022-08-17 05:34] LABS: HEMATOCRIT 32.3 % (42.0-52.0); HEMOGLOBIN 10.3 g/dl (13.5-17.5); MEAN CORPUSCULAR HGB CONC 31.9 g/dl (32.0-36.5); PLATELET COUNT, AUTOMATED 216 10^3/uL (150-450); RED BLOOD COUNT 3.55 10^6/uL (4.30-6.10)
[2022-08-17 05:47] LABS: ALBUMIN 2.5 G/DL (3.2-5.2); BILIRUBIN,TOTAL 0.6 MG/DL (0.3-1.2); CALCIUM LEVEL 8.1 MG/DL (8.3-10.6); CREATININE FOR GFR 1.71 MG/DL (0.70-1.30); GLOMERULAR FILTRATION RATE 43.3 (>49); MAGNESIUM LEVEL 1.7 MG/DL (1.8-2.4); POTASSIUM SERUM 3.9 MMOL/L (3.5-5.1)
[2022-08-17] MEDS ORDERED: THIAMINE 200MG 2ML VIAL IM ONE (08:00)
[2022-08-17] MEDS: NICOTINE POLACRILEX 2 MG GUM PO PRN ×7 (08:01→22:12)
[2022-08-17] MEDS: FOLIC ACID 1MG TAB PO SCH (08:02)
[2022-08-17] MEDS: ATORVASTATIN 20 MG TAB PO SCH (08:02)
[2022-08-17] MEDS: THIAMINE 100 MG TAB PO SCH ×2 (08:02→20:03)
[2022-08-17] MEDS: MULTIVITAMINS/MINERALS THERAP 1 TAB PO SCH (08:02)
[2022-08-17] MEDS: D5W 1,000 ML IV SCH ×2 (08:15→22:12)
[2022-08-17] MEDS ORDERED: DESMOPRESSIN ACETATE 2 MCG in NS 50 ML IV ONE (09:00)
[2022-08-17] MEDS ORDERED: ENOXAPARIN 40MG/0.4ML SYRINGE (J1650 PER 10MG) SC SCH (09:00)
[2022-08-17 10:59] LABS: CALCIUM LEVEL 8.2 MG/DL (8.3-10.6); CREATININE FOR GFR 1.46 MG/DL (0.70-1.30); GLOMERULAR FILTRATION RATE 51.9 (>49); POTASSIUM SERUM 4.3 MMOL/L (3.5-5.1)
[2022-08-17] MEDS ORDERED: MAG SULF 1GM/100ML (MAG RUN) 1 GM in IV 1 EA IV ONE (11:00)
[2022-08-17 14:56] LABS: CALCIUM LEVEL 8.8 MG/DL (8.3-10.6); CREATININE FOR GFR 1.43 MG/DL (0.70-1.30); GLOMERULAR FILTRATION RATE 53.2 (>49); POTASSIUM SERUM 4.3 MMOL/L (3.5-5.1)
[2022-08-17 18:57] LABS: CREATININE FOR GFR 1.35 MG/DL (0.70-1.30); GLOMERULAR FILTRATION RATE 56.8 (>49)
[2022-08-17 22:50] LABS: BLOOD UREA NITROGEN 15 MG/DL (9-23); CALCIUM LEVEL 8.3 MG/DL (8.3-10.6); CARBON DIOXIDE LEVEL 24 MMOL/L (20-31); CHLORIDE LEVEL 103 MMOL/L (98-107); CREATININE FOR GFR 1.27 MG/DL (0.70-1.30); GLOMERULAR FILTRATION RATE > 60.0 (>49); GLUCOSE, FASTING 124 MG/DL (74-106); POTASSIUM SERUM 3.7 MMOL/L (3.5-5.1); SODIUM LEVEL 135 MMOL/L (136-145)
[2022-08-18] VITALS (7 sets, daily range): BP systolic 154–204; BP diastolic 74–100
[2022-08-18] MEDS: HEPARIN SOD (PORCINE) 5000UNITS/ML 1ML VIAL/SYRINGE SQ SCH ×3 (06:25→20:10)
[2022-08-18 06:57] LABS: BASO % 0.6 % (0.0-1.0); EOS # 0.1 10^3/uL (0.0-0.5); EOS % 1.3 % (0.0-3.0); HEMATOCRIT 33.7 % (42.0-52.0); HEMOGLOBIN 10.9 g/dl (13.5-17.5); LYMPH # 1.4 10^3/uL (1.5-5.0); LYMPH % 20.9 % (24.0-44.0); MEAN CORPUSCULAR HEMOGLOBIN 29.6 pg (27.0-33.0); MEAN CORPUSCULAR HGB CONC 32.3 g/dl (32.0-36.5); MEAN CORPUSCULAR VOLUME 91.6 fl (80.0-96.0); MONO # 0.7 10^3/uL (0.0-0.8); MONO % 9.7 % (2.0-8.0); NEUTROPHILS # 4.6 10^3/uL (1.5-8.5); NEUTROPHILS % 67.2 % (36.0-66.0); PLATELET COUNT, AUTOMATED 223 10^3/uL (150-450); RED BLOOD COUNT 3.68 10^6/uL (4.30-6.10); WHITE BLOOD COUNT 6.8 10^3/uL (4.0-10.0)
[2022-08-18 07:24] LABS: BLOOD UREA NITROGEN 11 MG/DL (9-23); CALCIUM LEVEL 8.4 MG/DL (8.3-10.6); CARBON DIOXIDE LEVEL 26 MMOL/L (20-31); CHLORIDE LEVEL 101 MMOL/L (98-107); CREATININE FOR GFR 1.17 MG/DL (0.70-1.30); GLOMERULAR FILTRATION RATE > 60.0 (>49); GLUCOSE, FASTING 105 MG/DL (74-106); MAGNESIUM LEVEL 1.5 MG/DL (1.8-2.4); POTASSIUM SERUM 3.7 MMOL/L (3.5-5.1); SODIUM LEVEL 133 MMOL/L (136-145)
[2022-08-18] MEDS: NICOTINE POLACRILEX 2 MG GUM PO PRN ×6 (07:50→22:46)
[2022-08-18] MEDS: MULTIVITAMINS/MINERALS THERAP 1 TAB PO SCH (07:51)
[2022-08-18] MEDS: ATORVASTATIN 20 MG TAB PO SCH (07:51)
[2022-08-18] MEDS: FOLIC ACID 1MG TAB PO SCH (07:51)
[2022-08-18] MEDS: THIAMINE 100 MG TAB PO SCH ×2 (07:51→20:10)
[2022-08-18] MEDS ORDERED: MAGNESIUM SULFATE IN WATER 2 GM in IV 1 EA IV STA ×2 (08:07)
[2022-08-18] MEDS: MAG SULF 1GM/100ML (MAG RUN) X 2 DOSES (2GM TOTAL) IV SCH ×4 (09:34→10:48)
[2022-08-18] MEDS: cloNIDine 0.1MG TABLET PO SCH ×2 (09:34→20:10)
[2022-08-19 00:13] VITALS: BP 190/100
[2022-08-19] MEDS ORDERED: **hydrALAZINE** 50 MG TAB PO ONE (00:25)
[2022-08-19] MEDS: NICOTINE POLACRILEX 2 MG GUM PO PRN ×2 (00:45→08:57)
[2022-08-19 02:23] VITALS: BP 172/90
[2022-08-19 04:00] VITALS: BP 154/88
[2022-08-19] MEDS: HEPARIN SOD (PORCINE) 5000UNITS/ML 1ML VIAL/SYRINGE SQ SCH ×2 (05:38→14:00)
[2022-08-19] MEDS ORDERED: cloNIDine 0.1MG TABLET PO SCH (06:45)
[2022-08-19 08:08] VITALS: BP 138/77
[2022-08-19 08:58] VITALS: BP 138/77
[2022-08-19] MEDS: ATORVASTATIN 20 MG TAB PO SCH (08:58)
[2022-08-19] MEDS: MULTIVITAMINS/MINERALS THERAP 1 TAB PO SCH (08:58)
[2022-08-19] MEDS: FOLIC ACID 1MG TAB PO SCH (08:58)
[2022-08-19] MEDS: THIAMINE 100 MG TAB PO SCH (08:58)
[2022-08-19 09:53] LABS: BLOOD UREA NITROGEN 9 MG/DL (9-23); CALCIUM LEVEL 9.1 MG/DL (8.3-10.6); CARBON DIOXIDE LEVEL 24 MMOL/L (20-31); CHLORIDE LEVEL 98 MMOL/L (98-107); GLOMERULAR FILTRATION RATE > 60.0 (>49); GLUCOSE, FASTING 140 MG/DL (74-106); MAGNESIUM LEVEL 1.6 MG/DL (1.8-2.4); POTASSIUM SERUM 4.3 MMOL/L (3.5-5.1); SODIUM LEVEL 132 MMOL/L (136-145)
[2022-08-19] MEDS ORDERED: MAGN400T2 PO (10:38)
[2022-08-19] MEDS ORDERED: CLONI1TA PO (10:38)
[2022-08-19] MEDS ORDERED: PROB250C PO (10:44)
[2022-08-19] MEDS ORDERED: AMOX875T2 PO ×2 (10:44→10:49)
== END 2022-08-19 14:05 | disposition home or self-care (01) | DRG 469 ==
LOC: M ED 18:05 → M ED INP 23:06 → M PCU 08-17 01:00
PROVIDERS: ADMIT Internal Medicine; ATTEND Internal Medicine
DX: N17.0 Acute kidney failure with tubular necrosis (principal); E87.20 Acidosis, unspecified; I95.9 Hypotension, unspecified; E87.1 Hypo-osmolality and hyponatremia; E83.42 Hypomagnesemia; B96.20 Unspecified Escherichia coli [E. coli] as the cause of diseases classified elsewhere; D64.9 Anemia, unspecified; F10.20 Alcohol dependence, uncomplicated; I12.9 Hypertensive chronic kidney disease with stage 1 through stage 4 chronic kidney disease, or unspecified chronic kidney disease; N39.0 Urinary tract infection, site not specified; R55 Syncope and collapse; I35.0 Nonrheumatic aortic (valve) stenosis; R29.6 Repeated falls; E78.5 Hyperlipidemia, unspecified; F17.200 Nicotine dependence, unspecified, uncomplicated; E86.0 Dehydration; Z79.899 Other long term (current) drug therapy; N18.30 Chronic kidney disease, stage 3 unspecified

== ENCOUNTER 2022-09-19 21:21 | Emergency (ER) | payer OTHER ==
[~2022-09-19] VITALS: Ht 175.3 cm; Wt 81.1 kg
[~2022-09-19 21:21] MED LIST changes: +AMOX875T2 PO; +ATOR80TA59 PO; +MAGN400T2 PO; +NICO2GUM46 PO; +PROB250C PO
[2022-09-19 22:26] LABS: BASO % 0.5 % (0.0-1.0); EOS # 0.1 10^3/uL (0.0-0.5); EOS % 1.7 % (0.0-3.0); HEMATOCRIT 40.2 % (42.0-52.0); LYMPH # 1.3 10^3/uL (1.5-5.0); LYMPH % 19.9 % (24.0-44.0); MEAN CORPUSCULAR HEMOGLOBIN 29.7 pg (27.0-33.0); MEAN CORPUSCULAR HGB CONC 32.3 g/dl (32.0-36.5); MONO # 0.5 10^3/uL (0.0-0.8); MONO % 7.7 % (2.0-8.0); NEUTROPHILS # 4.6 10^3/uL (1.5-8.5); NEUTROPHILS % 69.9 % (36.0-66.0); PLATELET COUNT, AUTOMATED 240 10^3/uL (150-450); RED BLOOD COUNT 4.37 10^6/uL (4.30-6.10); WHITE BLOOD COUNT 6.5 10^3/uL (4.0-10.0)
[2022-09-19] MEDS ORDERED: hydrALAZINE 20MG/ML 1ML VIAL IV ONE (22:40)
[2022-09-19 22:50] LABS: SALICYLATE LEVEL < 3.0 MG/DL (<30)
[2022-09-19 22:51] LABS: ACETAMINOPHEN LEVEL < 2.0 UG/ML (10.0-20.0); ALBUMIN 3.8 G/DL (3.2-5.2); ALKALINE PHOSPHATASE 78 U/L (46-116); ALT/SGPT 23 U/L (7.0-40); AST/SGOT 32 U/L (<34); BILIRUBIN,DIRECT 0.3 MG/DL (<0.4); BILIRUBIN,TOTAL 0.7 MG/DL (0.3-1.2); BLOOD UREA NITROGEN 10 MG/DL (9-23); CARBON DIOXIDE LEVEL 22 MMOL/L (20-31); CHLORIDE LEVEL 99 MMOL/L (98-107); CREATININE FOR GFR 1.19 MG/DL (0.70-1.30); GLOMERULAR FILTRATION RATE > 60.0 (>49); GLUCOSE, FASTING 85 MG/DL (74-106); SODIUM LEVEL 133 MMOL/L (136-145); TOTAL PROTEIN 7.8 G/DL (5.7-8.2)
[2022-09-19 23:01] LABS: THYROID STIMULATING HORMONE 4.863 uIU/ML (0.55-4.78)
[2022-09-19 23:04] VITALS: BP 188/111
[2022-09-19] MEDS ORDERED: NICOTINE POLACRILEX 2 MG GUM PO ONE (23:30)
[2022-09-20 06:04] VITALS: BP 135/81
== END 2022-09-20 06:22 | disposition home or self-care (01) ==
LOC: M ED 21:21
DX: S00.03XA Contusion of scalp, initial encounter (principal); F10.129 Alcohol abuse with intoxication, unspecified; I10 Essential (primary) hypertension; E78.5 Hyperlipidemia, unspecified; Z79.02 Long term (current) use of antithrombotics/antiplatelets; Z79.899 Other long term (current) drug therapy
CPT/HCPCS: 70450; 72125; 80048; 80076; 80143; 82077; 84443; 85025; 93005; 96374; 99285; J0360

== ENCOUNTER 2022-10-04 13:37 | Emergency (ER) | payer MEDICAID, OTHER ==
[2022-10-04 13:50] VITALS: BP 153/77
[2022-10-04] MEDS ORDERED: BACI500O8 TOP (16:56)
== END 2022-10-04 20:30 | disposition home or self-care (01) ==
LOC: EDBD 13:37 → M ED 13:37
DX: S00.01XA Abrasion of scalp, initial encounter (principal); F10.129 Alcohol abuse with intoxication, unspecified; E78.5 Hyperlipidemia, unspecified; I10 Essential (primary) hypertension; I35.0 Nonrheumatic aortic (valve) stenosis; Y92.410 Unspecified street and highway as the place of occurrence of the external cause; Z79.2 Long term (current) use of antibiotics; Z79.899 Other long term (current) drug therapy

== ENCOUNTER 2022-10-15 23:08 | Emergency (ER) | payer MEDICAID ==
[~2022-10-15 23:08] MED LIST changes: +BACI500O8 TOP
[2022-10-15] MEDS ORDERED: cloNIDine 0.1MG TABLET PO ONE (23:55)
[2022-10-16 00:59] LABS: BASO # 0.1 10^3/uL (0.0-0.2); BASO % 0.8 % (0.0-1.0); EOS # 0.2 10^3/uL (0.0-0.5); EOS % 2.2 % (0.0-3.0); HEMATOCRIT 37.7 % (42.0-52.0); HEMOGLOBIN 12.6 g/dl (13.5-17.5); LYMPH # 1.6 10^3/uL (1.5-5.0); LYMPH % 21.6 % (24.0-44.0); MEAN CORPUSCULAR HEMOGLOBIN 30.6 pg (27.0-33.0); MEAN CORPUSCULAR HGB CONC 33.4 g/dl (32.0-36.5); MEAN CORPUSCULAR VOLUME 91.5 fl (80.0-96.0); MONO # 0.7 10^3/uL (0.0-0.8); MONO % 10.3 % (2.0-8.0); NEUTROPHILS # 4.7 10^3/uL (1.5-8.5); NEUTROPHILS % 64.7 % (36.0-66.0); PLATELET COUNT, AUTOMATED 272 10^3/uL (150-450); RED BLOOD COUNT 4.12 10^6/uL (4.30-6.10); WHITE BLOOD COUNT 7.2 10^3/uL (4.0-10.0)
[2022-10-16 01:20] LABS: ETHYL ALCOHOL (ETHANOL) 0.205 % (0.000-0.010)
[2022-10-16 01:21] LABS: ACETAMINOPHEN LEVEL < 2.0 UG/ML (10.0-20.0); SALICYLATE LEVEL < 3.0 MG/DL (<30)
[2022-10-16 01:22] LABS: ALBUMIN 3.7 G/DL (3.2-5.2); ALKALINE PHOSPHATASE 73 U/L (46-116); ALT/SGPT 25 U/L (7.0-40); AST/SGOT 28 U/L (<34); BILIRUBIN,DIRECT 0.3 MG/DL (<0.4); BILIRUBIN,TOTAL 0.9 MG/DL (0.3-1.2); BLOOD UREA NITROGEN 14 MG/DL (9-23); CALCIUM LEVEL 9.2 MG/DL (8.3-10.6); CARBON DIOXIDE LEVEL 24 MMOL/L (20-31); CHLORIDE LEVEL 99 MMOL/L (98-107); CK-MB VALUE MASS 1.3 NG/ML (<3.6); CPK CREATINE PHOSPHOKINASE 142 U/L (46-171); CREATININE FOR GFR 1.27 MG/DL (0.70-1.30); GLOMERULAR FILTRATION RATE > 60.0 (>49); GLUCOSE, FASTING 80 MG/DL (74-106); MB/CK RELATIVE INDEX 0.91 (< OR =4); POTASSIUM SERUM 4.1 MMOL/L (3.5-5.1); SODIUM LEVEL 134 MMOL/L (136-145); TOTAL PROTEIN 7.7 G/DL (5.7-8.2)
[2022-10-16 01:24] LABS: THYROID STIMULATING HORMONE 3.635 uIU/ML (0.55-4.78)
[2022-10-16] MEDS ORDERED: AMLO1TAB25 PO (07:07)
[2022-10-16] MEDS ORDERED: CLONI1TA PO (07:07)
[2022-10-16 07:15] VITALS: TEMP 97.4
[2022-10-16 07:30] VITALS: BP 152/76
[2022-10-16 07:45] VITALS: O2SAT 98
[2022-10-16 08:12] LABS: AMPHETAMINES LEVEL URINE NEGATIVE (NEGATIVE); BENZODIAZEPINES URINE NEGATIVE (NEGATIVE)
[2022-10-16 08:13] LABS: BARBITURATES URINE NEGATIVE (NEGATIVE); CANNABINOIDS URINE NEGATIVE (NEGATIVE); COCAINE METABOLITE URINE NEGATIVE (NEGATIVE); METHADONE URINE NEGATIVE (NEGATIVE); OPIATES URINE NEGATIVE (NEGATIVE); PHENCYCLIDINE URINE NEGATIVE (NEGATIVE)
== END 2022-10-16 08:50 | disposition home or self-care (01) ==
LOC: M ED 23:08
DX: F10.129 Alcohol abuse with intoxication, unspecified (principal); I16.0 Hypertensive urgency; Z91.119 Patient's noncompliance with dietary regimen due to unspecified reason; M79.604 Pain in right leg; I10 Essential (primary) hypertension; F17.200 Nicotine dependence, unspecified, uncomplicated; W01.0XXA Fall on same level from slipping, tripping and stumbling without subsequent striking against object, initial encounter; Z79.2 Long term (current) use of antibiotics; Z79.02 Long term (current) use of antithrombotics/antiplatelets; Z79.899 Other long term (current) drug therapy

== ENCOUNTER → 2022-10-18 | Outpatient (REF) | payer MEDICAID ==
[2022-10-18 17:10] LABS: ALBUMIN 3.5 G/DL (3.2-5.2); BILIRUBIN,DIRECT 0.3 MG/DL (<0.4); CALCIUM LEVEL 9.7 MG/DL (8.3-10.6); CREATININE FOR GFR 1.39 MG/DL (0.70-1.30); GLOMERULAR FILTRATION RATE 54.9 (>49); TOTAL PROTEIN 7.4 G/DL (5.7-8.2)
[2022-10-18 17:50] LABS: HEPATITIS C VIRUS ABY INDEX 0.11 INDEX (<0.8)
== END ==
LOC: M LAB REF 16:23
PROVIDERS: ATTEND Nurse Practitioner Family
DX: E11.9 Type 2 diabetes mellitus without complications (principal); Z11.9 Encounter for screening for infectious and parasitic diseases, unspecified; K74.60 Unspecified cirrhosis of liver

== ENCOUNTER 2022-10-22 14:16 | Emergency (ER) | payer MEDICAID, OTHER ==
[2022-10-22] MEDS ORDERED: NS 1,000 ML IV ONE (18:25)
[2022-10-22 18:56] VITALS: BP 185/86; O2SAT 98
[2022-10-22 18:56] LABS: BASO # 0.1 10^3/uL (0.0-0.2); BASO % 0.9 % (0.0-1.0); EOS # 0.2 10^3/uL (0.0-0.5); EOS % 2.5 % (0.0-3.0); HEMATOCRIT 35.2 % (42.0-52.0); HEMOGLOBIN 11.5 g/dl (13.5-17.5); LYMPH # 1.7 10^3/uL (1.5-5.0); LYMPH % 26.5 % (24.0-44.0); MEAN CORPUSCULAR HGB CONC 32.7 g/dl (32.0-36.5); MEAN CORPUSCULAR VOLUME 91.9 fl (80.0-96.0); MONO # 0.5 10^3/uL (0.0-0.8); MONO % 7.4 % (2.0-8.0); NEUTROPHILS % 62.4 % (36.0-66.0); PLATELET COUNT, AUTOMATED 317 10^3/uL (150-450); RED BLOOD COUNT 3.83 10^6/uL (4.30-6.10); WHITE BLOOD COUNT 6.5 10^3/uL (4.0-10.0)
[2022-10-22 19:17] LABS: ETHYL ALCOHOL (ETHANOL) 0.262 % (0.000-0.010)
[2022-10-22 19:19] LABS: ALBUMIN 3.3 G/DL (3.2-5.2); BILIRUBIN,DIRECT 0.2 MG/DL (<0.4); BILIRUBIN,TOTAL 0.6 MG/DL (0.3-1.2); CALCIUM LEVEL 8.7 MG/DL (8.3-10.6); CREATININE FOR GFR 1.56 MG/DL (0.70-1.30); GLOMERULAR FILTRATION RATE 48.1 (>49); MAGNESIUM LEVEL 1.8 MG/DL (1.8-2.4); POTASSIUM SERUM 3.7 MMOL/L (3.5-5.1); TOTAL PROTEIN 6.7 G/DL (5.7-8.2)
== END 2022-10-22 19:16 | disposition home or self-care (01) ==
LOC: M ED 14:16 → EDBD 14:16 → M ED 19:16
DX: F10.129 Alcohol abuse with intoxication, unspecified (principal); S09.90XA Unspecified injury of head, initial encounter; W01.198A Fall on same level from slipping, tripping and stumbling with subsequent striking against other object, initial encounter; I10 Essential (primary) hypertension; N18.30 Chronic kidney disease, stage 3 unspecified; K21.9 Gastro-esophageal reflux disease without esophagitis; F17.200 Nicotine dependence, unspecified, uncomplicated; Z79.02 Long term (current) use of antithrombotics/antiplatelets; Z79.899 Other long term (current) drug therapy

== ENCOUNTER 2023-01-16 17:42 | Emergency (ER) | payer OTHER ==
[~2023-01-16] VITALS: Ht 177.8 cm; Wt 90.9 kg
[2023-01-16] MEDS ORDERED: LORazepam 2 MG TAB PO PRN (18:15)
[2023-01-16] MEDS ORDERED: CLONI1TA PO ×2 (18:22→18:43)
[2023-01-16] MEDS ORDERED: AMLO1TAB25 PO ×2 (18:22→18:43)
[2023-01-16] MEDS ORDERED: ATOR80TA59 PO ×2 (18:22→18:43)
[2023-01-16] MEDS ORDERED: THIAMINE 100 MG TAB PO SCH (18:40)
[2023-01-16 18:50] VITALS: BP 218/97
[2023-01-16] MEDS ORDERED: NS 1,000 ML IV ONE ×2 (19:05)
[2023-01-17 03:43] VITALS: BP 176/79; TEMP 98.8
[2023-01-17 05:42] VITALS: O2SAT 100
[2023-01-17] MEDS ORDERED: FOLIC ACID 1MG TAB PO SCH (09:00)
[2023-01-17] MEDS ORDERED: MULTIVITAMINS/MINERALS THERAP 1 TAB PO SCH (09:00)
== END 2023-01-17 06:17 | disposition home or self-care (01) ==
LOC: M ED 17:42 → EDBD 17:42 → M ED 01-17 06:17
DX: F10.129 Alcohol abuse with intoxication, unspecified (principal); I16.0 Hypertensive urgency; I10 Essential (primary) hypertension; Z79.02 Long term (current) use of antithrombotics/antiplatelets; Z79.899 Other long term (current) drug therapy

== ENCOUNTER 2023-04-09 11:43 | Emergency (ER) | payer OTHER ==
[~2023-04-09] VITALS: Ht 177.8 cm; Wt 84.1 kg
[2023-04-09] MEDS ORDERED: NS 1,000 ML IV ONE (12:00)
[2023-04-09 12:15] VITALS: TEMP 97.9
[2023-04-09 13:30] LABS: BASO # 0.1 10^3/uL (0.0-0.2); BASO % 0.4 % (0.0-1.0); EOS # 0.1 10^3/uL (0.0-0.5); EOS % 0.7 % (0.0-3.0); HEMATOCRIT 39.4 % (42.0-52.0); LYMPH # 0.8 10^3/uL (1.5-5.0); LYMPH % 5.8 % (24.0-44.0); MEAN CORPUSCULAR HEMOGLOBIN 28.4 pg (27.0-33.0); MONO # 0.8 10^3/uL (0.0-0.8); MONO % 5.7 % (2.0-8.0); NEUTROPHILS % 86.8 % (36.0-66.0); PLATELET COUNT, AUTOMATED 435 10^3/uL (150-450); RED BLOOD COUNT 4.58 10^6/uL (4.30-6.10); WHITE BLOOD COUNT 13.8 10^3/uL (4.0-10.0)
[2023-04-09 13:42] LABS: INR 1.09; PROTHROMBIN TIME 13.8 SECONDS (12.5-14.5)
[2023-04-09 13:43] LABS: PARTIAL THROMBOPLASTIN TIME 30.9 SECONDS (24.8-34.2)
[2023-04-09 13:59] LABS: LIPASE 41 U/L (12-53)
[2023-04-09 14:00] LABS: ETHYL ALCOHOL (ETHANOL) < 0.003 % (0.000-0.010)
[2023-04-09 14:01] LABS: ALBUMIN 3.2 G/DL (3.2-5.2); ALKALINE PHOSPHATASE 66 U/L (46-116); ALT/SGPT 22 U/L (7.0-40); AMYLASE 52 U/L (30-118); AST/SGOT 14 U/L (<34); BILIRUBIN,DIRECT 0.3 MG/DL (<0.4); BILIRUBIN,TOTAL 0.8 MG/DL (0.3-1.2); BLOOD UREA NITROGEN 20 MG/DL (9-23); CALCIUM LEVEL 9.1 MG/DL (8.3-10.6); CARBON DIOXIDE LEVEL 26 MMOL/L (20-31); CHLORIDE LEVEL 101 MMOL/L (98-107); CK-MB VALUE MASS 1.5 NG/ML (<3.6); CPK CREATINE PHOSPHOKINASE 129 U/L (46-171); GLOMERULAR FILTRATION RATE 54.3 (>49); GLUCOSE, FASTING 129 MG/DL (74-106); MB/CK RELATIVE INDEX 1.16 (< OR =4); POTASSIUM SERUM 3.6 MMOL/L (3.5-5.1); SODIUM LEVEL 135 MMOL/L (136-145); TOTAL PROTEIN 7.3 G/DL (5.7-8.2)
[2023-04-09] MEDS ORDERED: AMPICILLIN SOD/SULBACTAM SOD 3 GM in D5W MINI-BAG PLUS 100 ML IV ONE (14:10)
[2023-04-09 14:12] LABS: RSV AMPLIFICATION NEGATIVE (NEGATIVE)
[2023-04-09 15:16] VITALS: BP 248/128
[2023-04-09 15:26] LABS: AMPHETAMINES LEVEL URINE NEGATIVE (NEGATIVE); BARBITURATES URINE NEGATIVE (NEGATIVE); BENZODIAZEPINES URINE NEGATIVE (NEGATIVE); CANNABINOIDS URINE NEGATIVE (NEGATIVE); COCAINE METABOLITE URINE NEGATIVE (NEGATIVE); METHADONE URINE NEGATIVE (NEGATIVE); OPIATES URINE NEGATIVE (NEGATIVE); PHENCYCLIDINE URINE NEGATIVE (NEGATIVE)
[2023-04-09 15:30] VITALS: O2SAT 99
== END 2023-04-09 15:48 | disposition short-term general hospital (02) ==
LOC: EDBD 11:43 → M ED 11:43
DX: S02.31XA Fracture of orbital floor, right side, initial encounter for closed fracture (principal); S02.40EA Zygomatic fracture, right side, initial encounter for closed fracture; S02.19XA Other fracture of base of skull, initial encounter for closed fracture; G31.9 Degenerative disease of nervous system, unspecified; I10 Essential (primary) hypertension; F10.10 Alcohol abuse, uncomplicated; F17.200 Nicotine dependence, unspecified, uncomplicated; Y92.009 Unspecified place in unspecified non-institutional (private) residence as the place of occurrence of the external cause; Y04.0XXA Assault by unarmed brawl or fight, initial encounter; Y99.9 Unspecified external cause status; Z79.02 Long term (current) use of antithrombotics/antiplatelets; Z79.899 Other long term (current) drug therapy
CPT/HCPCS: 70450; 70486; 71045; 72125; 80048; 80076; 80307; 82077; 82150; 82550; 82553; 83605; 83690; 85025; 85610; 85730; 87631; 93041; 94760; 96361; 96365; 99285; J0295

== ENCOUNTER 2023-07-15 17:31 | Observation (INO) | payer OTHER ==
[~2023-07-15] VITALS: Ht 177.8 cm; Wt 80.0 kg
[2023-07-15] MEDS: LABETALOL 100MG/20ML VIAL IV STA ×3 (20:36→22:42)
[2023-07-15 20:49] LABS: BASO # 0.1 10^3/uL (0.0-0.2); BASO % 0.9 % (0.0-1.0); EOS # 0.2 10^3/uL (0.0-0.5); EOS % 3.5 % (0.0-3.0); HEMATOCRIT 38.7 % (42.0-52.0); HEMOGLOBIN 12.4 g/dl (13.5-17.5); LYMPH # 1.8 10^3/uL (1.5-5.0); LYMPH % 30.8 % (24.0-44.0); MEAN CORPUSCULAR HEMOGLOBIN 27.6 pg (27.0-33.0); MONO # 0.4 10^3/uL (0.0-0.8); MONO % 7.3 % (2.0-8.0); NEUTROPHILS # 3.3 10^3/uL (1.5-8.5); NEUTROPHILS % 57.2 % (36.0-66.0); PLATELET COUNT, AUTOMATED 268 10^3/uL (150-450); WHITE BLOOD COUNT 5.7 10^3/uL (4.0-10.0)
[2023-07-15 21:17] LABS: ALBUMIN 3.7 G/DL (3.2-5.2); ALKALINE PHOSPHATASE 65 U/L (46-116); ALT/SGPT 18 U/L (7.0-40); AST/SGOT 42 U/L (<34); BILIRUBIN,DIRECT 0.2 MG/DL (<0.4); BILIRUBIN,TOTAL 0.7 MG/DL (0.3-1.2); BLOOD UREA NITROGEN 13 MG/DL (9-23); CALCIUM LEVEL 8.2 MG/DL (8.3-10.6); CARBON DIOXIDE LEVEL 24 MMOL/L (20-31); CHLORIDE LEVEL 105 MMOL/L (98-107); CPK CREATINE PHOSPHOKINASE 142 U/L (46-171); CREATININE FOR GFR 1.27 MG/DL (0.70-1.30); GLOMERULAR FILTRATION RATE > 60.0 (>49); GLUCOSE, FASTING 88 MG/DL (74-106); POTASSIUM SERUM 4.8 MMOL/L (3.5-5.1); SODIUM LEVEL 136 MMOL/L (136-145); TOTAL PROTEIN 7.7 G/DL (5.7-8.2)
[2023-07-15 21:24] LABS: APPEARANCE, URINE CLEAR (CLEAR); BACTERIA, URINE AUTO NEGATIVE (NEGATIVE); BILIRUBIN, URINE AUTO NEGATIVE (NEGATIVE); BLOOD, URINE BLOOD NEGATIVE (NEGATIVE); COLOR, URINE STRAW (YELLOW); GLUCOSE, URINE (UA) AUTO NEGATIVE (NEGATIVE); KETONE, URINE AUTO NEGATIVE (NEGATIVE); LEUKOCYTE ESTERASE, URINE AUTO NEGATIVE (NEGATIVE); NITRITE, URINE AUTO NEGATIVE (NEGATIVE); PROTEIN, URINE AUTO 1+ mg/dL (NEGATIVE); RBC, URINE AUTO 0 /HPF (0-3); SPECIFIC GRAVITY URINE AUTO 1.004 (1.002-1.035); SQUAMOUS EPITHELIAL CELL UR AU 0 /HPF (0-6); UROBILINOGEN, URINE AUTO 0.2 mg/dL (0.0-2.0); WBC, URINE AUTO 0 /HPF (0-3)
[2023-07-15 21:29] LABS: RSV AMPLIFICATION NEGATIVE (NEGATIVE)
[2023-07-15] MEDS: cloNIDine 0.1MG TABLET PO ONE (21:48)
[2023-07-15] MEDS ORDERED: CLON-412 PO (23:13)
[2023-07-15] MEDS ORDERED: HOME MED LIST COMPLETE! XX SCH (23:15)
[2023-07-16] VITALS (7 sets, daily range): BP systolic 103–187; BP diastolic 55–81; TEMP 97.5–98.7; O2SAT 92–95
[2023-07-16] MEDS ORDERED: ACETAMINOPHEN TAB 650MG DOSE (2X325MG) PO PRN (00:10)
[2023-07-16] MEDS ORDERED: MOM 30ML SUSPENSION UDC PO PRN (00:10)
[2023-07-16] MEDS ORDERED: MAALOX 30 ML SUSP *UDC PO PRN (00:10)
[2023-07-16] MEDS: hydrALAZINE 20MG/ML 1ML VIAL IV STA (03:12)
[2023-07-16] MEDS ORDERED: cloNIDine 0.2 MG TAB PO SCH (06:55)
[2023-07-16] MEDS ORDERED: cloNIDine 0.1MG TABLET PO SCH (09:00)
[2023-07-16] MEDS: ENOXAPARIN 40MG/0.4ML SYRINGE (J1650 PER 10MG) SC SCH (09:33)
[2023-07-16] MEDS: cloNIDine 0.1MG TABLET PO SCH (09:33)
[2023-07-16] MEDS: DOCUSATE SODIUM 100MG CAPSULE PO SCH (09:33)
[2023-07-16] MEDS: ATORVASTATIN 20 MG TAB PO SCH (09:33)
[2023-07-16] MEDS ORDERED: ATOR80TA59 PO (09:55)
[2023-07-16] MEDS ORDERED: CLON-412 PO (09:55)
[2023-07-16] MEDS ORDERED: AMLO1TAB25 PO (09:55)
== END 2023-07-16 11:24 | disposition home or self-care (01) ==
LOC: M ED 17:31 → M ED INP 07-16 00:09 → ENRESERV 07-16 02:24 → M ICU 07-16 03:19
PROVIDERS: ADMIT Internal Medicine; ATTEND Internal Medicine
DX: I16.0 Hypertensive urgency (principal); I35.0 Nonrheumatic aortic (valve) stenosis; R29.6 Repeated falls; F10.20 Alcohol dependence, uncomplicated; E78.5 Hyperlipidemia, unspecified; F17.218 Nicotine dependence, cigarettes, with other nicotine-induced disorders; Z79.899 Other long term (current) drug therapy
CPT/HCPCS: 36415; 71045; 80053; 81001; 82248; 82550; 82553; 85025; 87631; 93005; 93041; 94760; 96372; 96374; 96375; 96376; 99285; J0360; J1650; J1920

== ENCOUNTER → 2023-07-21 | Outpatient (REF) | payer OTHER ==
[~2023-07-21] MED LIST changes: +CLON-412 PO
[2023-07-21 18:31] LABS: HEMOGLOBIN A1c 5.8 % (4.0-6.0)
[2023-07-22 12:21] LABS: CREATININE, URINE 52.4 MG/DL; MAU/CREAT RATIO 658.3 MCG/MG (0.0-30.0)
== END ==
LOC: M LAB REF 17:33
PROVIDERS: ATTEND Nurse Practitioner Family
DX: E11.9 Type 2 diabetes mellitus without complications (principal); Z11.9 Encounter for screening for infectious and parasitic diseases, unspecified

== ENCOUNTER → 2023-07-30 | Outpatient (CLI) | payer OTHER | LOC: M PLAIMG 12:35 | PROVIDERS: ATTEND Nurse Practitioner Family | DX: R01.1 Cardiac murmur, unspecified (principal); I77.810 Thoracic aortic ectasia; I35.8 Other nonrheumatic aortic valve disorders ==

== ENCOUNTER → 2024-07-26 | Outpatient (REF) | payer OTHER, MEDICAID ==
[2024-07-26 19:09] LABS: BASO # 0.1 10^3/uL (0.0-0.2); BASO % 1.1 % (0.0-1.0); EOS # 0.2 10^3/uL (0.0-0.5); HEMATOCRIT 44.4 % (42.0-52.0); HEMOGLOBIN 14.6 g/dl (13.5-17.5); LYMPH # 1.5 10^3/uL (1.5-5.0); MEAN CORPUSCULAR HEMOGLOBIN 29.7 pg (27.0-33.0); MEAN CORPUSCULAR HGB CONC 32.9 g/dl (32.0-36.5); MEAN CORPUSCULAR VOLUME 90.4 fl (80.0-96.0); MONO # 0.5 10^3/uL (0.0-0.8); NEUTROPHILS # 4.3 10^3/uL (1.5-8.5); NEUTROPHILS % 64.7 % (36.0-66.0); PLATELET COUNT, AUTOMATED 288 10^3/uL (150-450); RED BLOOD COUNT 4.91 10^6/uL (4.30-6.10); WHITE BLOOD COUNT 6.6 10^3/uL (4.0-10.0)
[2024-07-26 19:34] LABS: ALBUMIN 4.2 G/DL (3.2-5.2); ALKALINE PHOSPHATASE 75 U/L (40-129); ALT/SGPT 40 U/L (7.0-40); AST/SGOT 36 U/L (<34); BILIRUBIN,DIRECT 0.3 MG/DL (<0.4); BLOOD UREA NITROGEN 7 MG/DL (9-23); CALCIUM LEVEL 9.3 MG/DL (8.3-10.6); CARBON DIOXIDE LEVEL 25 MMOL/L (20-31); CHLORIDE LEVEL 101 MMOL/L (98-107); CHOLESTEROL LEVEL 184 MG/DL (<200); CHOLESTEROL RISK RATIO 4.48 (<5); CREATININE FOR GFR 1.24 MG/DL (0.70-1.30); GLOMERULAR FILTRATION RATE > 60.0 (>49); GLUCOSE, FASTING 118 MG/DL (74-106); LDL CHOLESTEROL 78.2 MG/DL (<100); POTASSIUM SERUM 3.7 MMOL/L (3.5-5.1); SODIUM LEVEL 139 MMOL/L (136-145); TOTAL PROTEIN 8.6 G/DL (5.7-8.2); TRIGLYCERIDES LEVEL 324 MG/DL (<150); VITAMIN B12 LEVEL 314 PG/ML (211-911)
[2024-07-26 19:40] LABS: FOLATE 8.8 NG/ML (>5.4)
[2024-07-26 20:52] LABS: HEMOGLOBIN A1c 6.2 % (4.0-6.0)
== END ==
LOC: M LAB REF 18:19
PROVIDERS: ATTEND Nurse Practitioner Family
DX: Z86.39 Personal history of other endocrine, nutritional and metabolic disease (principal); E66.3 Overweight; N18.9 Chronic kidney disease, unspecified; F10.10 Alcohol abuse, uncomplicated; K74.60 Unspecified cirrhosis of liver